=== PATIENT | male | born 1965 | race Caucasian/White ===

== ENCOUNTER 2020-05-11 13:31 | Outpatient (REF) | payer OTHER, SELFPAY | END 2020-05-11 13:32 | disposition home or self-care (01) | LOC: HO.LAB 13:31 | PROVIDERS: Visit Provider Internal Medicine | DX: Z20.822 Contact with and (suspected) exposure to COVID-19 (principal) | CPT/HCPCS: 36415; C9803; U0003 ==

== ENCOUNTER 2020-11-11 14:54 | Outpatient (REF) | payer MEDICARE, MEDICAID, SELFPAY ==
--- NOTE | ~2020-11-11 | XR_ITS ---
EXAMINATION: XR KNEE, LEFT CLINICAL INFORMATION: Pain left knee COMPARISON: None TECHNIQUE: Four views of the left knee. FINDINGS: There is loss of medial and patellofemoral compartment joint space without loose bodies are bony erosive changes. No abnormal joint effusion seen. The soft tissues are normal. XR/XR knee LT 4V IMPRESSION: No acute process. Mild early degenerative changes left knee. No abnormal joint effusion seen.
== END 2020-11-11 14:55 | disposition home or self-care (01) ==
LOC: HO.HMGCX 14:54
PROVIDERS: PCP Internal Medicine; Visit Provider Internal Medicine
DX: Z13.89 Encounter for screening for other disorder (principal)
CPT/HCPCS: 73564

== ENCOUNTER 2020-11-24 13:06 | Outpatient (REF) | payer MEDICARE, MEDICAID, SELFPAY ==
[2020-11-24 13:56] LABS: MANUAL DIFF FLAG NO
[2020-11-24 14:03] LABS: Basophils Absolute Auto 0.1 X10*3/uL (0.0-0.2); Basophils Percent Auto 0.7 % (0-2); Eosinophils Absolute Auto 0.1 X10*3/uL (0.0-0.4); Eosinophils Percent Auto 1.6 % (0-4); Hematocrit 41.2 % (42-52); Hemoglobin 14.4 g/dl (14.0-18.0); Imm Gran Abs Auto 0.02 X10*3/uL (0.00-0.03); Imm Gran Pct Auto 0.3 % (0.0-0.4); Lymphocytes Absolute Auto 2.3 X10*3/uL (1.2-4.9); Mean Corpuscular Hemoglobin 34.2 pg (27.0-33.0); Mean Corpuscular Volume 97.9 fL (80-98); Mean Platelet Volume 9.8 fL (9.4-12.4); Monocytes Absolute Auto 0.7 X10*3/uL (0.1-1.2); Monocytes Percent Auto 10.3 % (2-11); Neutrophils Absolute Auto 3.7 X10*3/uL (2.0-8.3); Neutrophils Percent Auto 54.1 % (45-73); Platelet Count 173 X10*3/uL (160-400); Red Blood Count 4.21 X10*6/uL (4.60-5.80); Red Cell Distribution Width 11.9 % (11.0-16.0); White Blood Count 6.8 X10*3/uL (4.8-10.8)
[2020-11-24 14:23] LABS: Creatinine Urine 12.15 mg/dL; Microalbumin Urine < 5.0 mg/L
[2020-11-24 14:30] LABS: Alanine Aminotransferase 48 U/L (0-40); Albumin Level 4.3 g/dL (3.5-5.0); Alkaline Phosphatase 135 U/L (39-117); Anion Gap 15 (12-20); Aspartate Amino Transferase 43 U/L (5-37); Bilirubin Total 0.5 mg/dL (0.0-1.0); Calcium 9.5 mg/dL (8.4-10.2); Carbon Dioxide 26 mmol/L (22-29); Chloride 103 mmol/L (96-108); Cholesterol 152 mg/dL; Estimated Glomerular Filt Rate > 60; Glucose Fasting 206 mg/dL (60-99); Potassium 4.3 mmol/L (3.3-5.1); Sodium 140 mmol/L (135-145); Total Protein 7.3 g/dL (6.5-8.0); Triglycerides 60 mg/dL
[2020-11-24 14:44] LABS: Blood Urea Nitrogen 3 mg/dL (9-16); HDL Cholesterol 82 mg/dL; LDL Cholesterol Calculated 58 mg/dl
[2020-11-24 14:47] LABS: TSH reflex Free T4 1.41 uIU/mL (0.32-4.0)
[2020-11-25 20:21] LABS: LDL Cholesterol Direct 48 mg/dL (<100)
== END 2020-11-24 13:07 | disposition home or self-care (01) ==
LOC: HO.HMGCLDS 13:06
PROVIDERS: PCP Internal Medicine; Visit Provider Internal Medicine
DX: Z00.01 Encounter for general adult medical examination with abnormal findings (principal); E11.65 Type 2 diabetes mellitus with hyperglycemia; E66.9 Obesity, unspecified; I10 Essential (primary) hypertension; F31.9 Bipolar disorder, unspecified
CPT/HCPCS: 36415; 80053; 80061; 82043; 83721; 84443; 85025

== ENCOUNTER → 2021-07-26 13:30 | Outpatient (BNVA) | payer MEDICARE, MEDICAID, SELFPAY | PROVIDERS: PCP Internal Medicine; Visit Provider Internal Medicine | DX: Z51.81 Encounter for therapeutic drug level monitoring (principal); F10.20 Alcohol dependence, uncomplicated; F31.9 Bipolar disorder, unspecified; F17.210 Nicotine dependence, cigarettes, uncomplicated | CPT/HCPCS: 80305; 99202 ==

== ENCOUNTER 2021-09-06 11:31 | Outpatient (REF) | payer MEDICARE, MEDICAID, SELFPAY ==
[2021-09-06 13:58] LABS: MANUAL DIFF FLAG NO
[2021-09-06 14:05] LABS: Basophils Absolute Auto 0.1 X10*3/uL (0.0-0.2); Basophils Percent Auto 1.2 % (0-2); Eosinophils Absolute Auto 0.1 X10*3/uL (0.0-0.4); Hematocrit 39.4 % (42.0-52.0); Hemoglobin 13.4 g/dl (14.0-18.0); Imm Gran Abs Auto 0.01 X10*3/uL (0.00-0.03); Imm Gran Pct Auto 0.2 % (0.0-0.4); Lymphocytes Absolute Auto 1.5 X10*3/uL (1.2-4.9); Lymphocytes Percent Auto 36.8 % (20-40); Mean Corpuscular Hemoglobin 33.8 pg (27.0-33.0); Mean Corpuscular Volume 99.2 fL (80.0-98.0); Mean Platelet Volume 10.6 fL (9.4-12.4); Monocytes Absolute Auto 0.6 X10*3/uL (0.1-1.2); Monocytes Percent Auto 14.4 % (2-11); Neutrophils Absolute Auto 1.9 x10*3/uL (2.0-8.3); Neutrophils Percent Auto 45.4 % (45-73); Platelet Count 151 X10*3/uL (160-400); Red Blood Count 3.97 X10*6/uL (4.60-5.80); Red Cell Distribution Width 13.2 % (11.0-16.0); White Blood Count 4.1 X10*3/uL (4.8-10.8)
[2021-09-06 14:20] LABS: Alanine Aminotransferase 50 U/L (0-40); Albumin Level 4.4 g/dL (3.5-5.0); Alkaline Phosphatase 123 U/L (39-117); Anion Gap 13 (12-20); Aspartate Amino Transferase 73 U/L (5-37); Bilirubin Total 0.6 mg/dL (0.0-1.0); Blood Urea Nitrogen 6 mg/dL (9-16); Calcium 9.5 mg/dL (8.4-10.2); Carbon Dioxide 27 mmol/L (22-29); Chloride 102 mmol/L (96-108); Cholesterol 198 mg/dL; Estimated Glomerular Filt Rate > 60; Glucose Fasting 179 mg/dL (60-99); HDL Cholesterol 106 mg/dL; LDL Cholesterol Calculated 77 mg/dl; Potassium 4.5 mmol/L (3.3-5.1); Sodium 137 mmol/L (135-145); Total Protein 8.1 g/dL (6.5-8.0); Triglycerides 75 mg/dL
[2021-09-06 14:41] LABS: Vitamin D 25-OH Total 7.2 ng/mL (>30)
[2021-09-06 14:51] LABS: Folate 12.9 ng/mL (> or = 4.0); Vitamin B12 1034 pg/mL (200-900)
== END 2021-09-06 11:32 | disposition home or self-care (01) ==
LOC: HO.HMGCLDS 11:31
PROVIDERS: PCP Internal Medicine; Visit Provider Internal Medicine
DX: Z00.01 Encounter for general adult medical examination with abnormal findings (principal); F10.20 Alcohol dependence, uncomplicated; I10 Essential (primary) hypertension; E11.65 Type 2 diabetes mellitus with hyperglycemia; F17.210 Nicotine dependence, cigarettes, uncomplicated
CPT/HCPCS: 36415; 80053; 80061; 82043; 82306; 82607; 82746; 85025

== ENCOUNTER → 2021-09-08 14:46 | Outpatient (BNVA) | payer MEDICARE, MEDICAID, SELFPAY | PROVIDERS: PCP Internal Medicine; Visit Provider Internal Medicine | DX: Z51.81 Encounter for therapeutic drug level monitoring (principal) | CPT/HCPCS: 80305 ==

== ENCOUNTER 2022-02-03 12:06 | Outpatient (REF) | payer MEDICARE, MEDICAID, SELFPAY ==
[2022-02-03 13:25] LABS: Estimated Average Glucose 174 mg/dL; Hemoglobin A1c % 7.7 %
[2022-02-03 13:47] LABS: Alanine Aminotransferase 67 U/L (0-40); Albumin Level 4.4 g/dL (3.5-5.0); Alkaline Phosphatase 118 U/L (39-117); Anion Gap 18 (12-20); Aspartate Amino Transferase 94 U/L (5-37); Bilirubin Total 1.9 mg/dL (0.0-1.0); Blood Urea Nitrogen 6 mg/dL (9-16); Calcium 9.4 mg/dL (8.4-10.2); Carbon Dioxide 24 mmol/L (22-29); Chloride 90 mmol/L (96-108); Estimated Glomerular Filt Rate > 60; Glucose Fasting 182 mg/dL (60-99); Potassium 4.1 mmol/L (3.3-5.1); Sodium 128 mmol/L (135-145); Total Protein 7.8 g/dL (6.5-8.0)
[2022-02-03 13:59] LABS: Vitamin D 25-OH Total 7.2 ng/mL (>30)
== END 2022-02-03 12:07 | disposition home or self-care (01) ==
LOC: HO.LAB 12:06
PROVIDERS: PCP Internal Medicine; Visit Provider Internal Medicine
DX: I10 Essential (primary) hypertension (principal); E11.65 Type 2 diabetes mellitus with hyperglycemia; E55.9 Vitamin D deficiency, unspecified; F10.20 Alcohol dependence, uncomplicated
CPT/HCPCS: 36415; 80053; 82306; 83036

== ENCOUNTER 2022-08-09 11:57 | Outpatient (REF) | payer MEDICARE, MEDICAID, SELFPAY ==
[2022-08-09 13:15] LABS: Imm Gran Abs Auto 0.01 X10*3/uL (0.00-0.03); Imm Gran Pct Auto 0.2 % (0.0-0.4); Mean Corpuscular Volume 94.8 fL (80.0-98.0); PLT CLUMP 1; Red Cell Distribution Width 11.8 % (11.0-16.0); SCAN SMEAR FLAG 1
[2022-08-09 13:17] LABS: Basophils Percent Auto 0.6 % (0-2); Eosinophils Absolute Auto 0.1 X10*3/uL (0.0-0.4); Eosinophils Percent Auto 2.5 % (0-4); Hematocrit 36.5 % (42.0-52.0); Hemoglobin 13.2 g/dl (14.0-18.0); Lymphocytes Absolute Auto 2.1 X10*3/uL (1.2-4.9); Lymphocytes Percent Auto 39.4 % (20-40); Mean Corpuscular HGB Conc 36.2 g/dl (31.0-36.0); Mean Corpuscular Hemoglobin 34.3 pg (27.0-33.0); Mean Platelet Volume 10.1 fL (9.4-12.4); Monocytes Absolute Auto 0.7 X10*3/uL (0.1-1.2); Monocytes Percent Auto 13.6 % (2-11); Neutrophils Absolute Auto 2.3 x10*3/uL (2.0-8.3); Neutrophils Percent Auto 43.7 % (45-73); Red Blood Count 3.85 X10*6/uL (4.60-5.80)
[2022-08-09 13:20] LABS: MANUAL DIFF FLAG NO; Platelet Count 126 X10*3/uL (160-400); White Blood Count 5.2 X10*3/uL (4.8-10.8)
[2022-08-09 13:35] LABS: Estimated Average Glucose 143 mg/dL; Hemoglobin A1c % 6.6 %
[2022-08-09 13:56] LABS: Alanine Aminotransferase 64 U/L (0-40); Albumin Level 4.3 g/dL (3.5-5.0); Alkaline Phosphatase 137 U/L (39-117); Anion Gap 15 (12-20); Aspartate Amino Transferase 132 U/L (5-37); Bilirubin Total 1.2 mg/dL (0.0-1.0); Blood Urea Nitrogen 4 mg/dL (9-16); Calcium 9.2 mg/dL (8.4-10.2); Carbon Dioxide 26 mmol/L (22-29); Chloride 101 mmol/L (96-108); Cholesterol 165 mg/dL; Estimated Glomerular Filt Rate > 60; Glucose Fasting 166 mg/dL (60-99); HDL Cholesterol 76 mg/dL; LDL Cholesterol Calculated 77 mg/dl; Potassium 3.9 mmol/L (3.3-5.1); Sodium 138 mmol/L (135-145); Total Protein 7.6 g/dL (6.5-8.0); Triglycerides 64 mg/dL
[2022-08-09 13:59] LABS: Creatinine Urine 109.35 mg/dL; Microalbum/Creatinine Ratio Ur 16.4 ug/mg cr
[2022-08-09 14:12] LABS: Folate 12.3 ng/mL (> or = 4.0); PSA,Total (Free>4and<10) 1.16 ng/mL (0.00-4.00); TSH reflex Free T4 4.79 uIU/mL (0.32-4.0); Vitamin B12 1335 pg/mL (200-900); Vitamin D 25-OH Total 10.5 ng/mL (>30)
[2022-08-16 11:14] LABS: Testosterone, Free 60.2 pg/mL (35.0-155.0); Testosterone, Total 803 ng/dL (250-1100)
== END 2022-08-09 11:58 | disposition home or self-care (01) ==
LOC: HO.LAB 11:57
PROVIDERS: PCP Internal Medicine; Visit Provider Internal Medicine
DX: Z12.5 Encounter for screening for malignant neoplasm of prostate (principal); E11.65 Type 2 diabetes mellitus with hyperglycemia; E55.9 Vitamin D deficiency, unspecified; I10 Essential (primary) hypertension
CPT/HCPCS: 36415; 80053; 80061; 82043; 82306; 82607; 82746; 83036; 84153; 84402; 84403; 84439; 84443; 85025

== ENCOUNTER 2022-12-27 12:58 | Outpatient (AMB) | payer MEDICARE, MEDICAID, SELFPAY ==
--- NOTE | 2022-12-27 13:11 | A.OFFPC_ITS ---
Vital Signs 12/27/22 13:14 Height 5 ft 5 in Weight 165 lb BMI 27.5 BP 100/60 Blood Pressure Location Lt brachial Position Sitting Pulse 87 Pulse Source Pulse Oximeter Pulse Oximetry (%) 100 Oxygen Delivery Method Room Air Intake Visit Reasons: 4 months follow up DM, Lipids, HTN, Alcohol Intake Note: Pt is here today for his 4 months f/u DM, lipids, HTN and alcohol Allergies No Known Allergies Allergy (Verified 01/05/23 03:11) Medication List - Last Reconciled 01/05/23 by Hanna Patten MD acamprosate 333 mg PO BID acetaminophen ER (Tylenol Arthritis Pain) 650 mg PO Q8H PRN alcohol swabs (Alcohol Prep Pads) pad topical aspirin 81 mg PO DAILY blood sugar diagnostic (FreeStyle Lite Strips) Test blood sugar once a day blood-glucose meter (FreeStyle Lite Meter kit) As directed escitalopram oxalate 20 mg PO DAILY folic acid 1 mg PO DAILY glipizide 10 mg PO DAILY lancets (FreeStyle Lancets) Test blood sugar once a day leg brace (Knee Brace Large-XLarge) use daily in left knee as directed lisinopril 5 mg PO DAILY metformin 1,000 mg (2 x 500 mg) PO BID multivitamin 1 tab PO DAILY pioglitazone 45 mg PO DAILY quetiapine 100 mg PO DAILY 30 days simvastatin 10 mg PO BEDTIME thiamine HCl (vitamin B1) 50 mg (1/2 x 100 mg) PO DAILY Tobacco use date assessed: 12/27/22 Dental Screening Dental Screen Date: 12/27/22 Did you have a dental visit in the last 12 months?: Yes Was dental information given to patient?: Patient has dentist HPI 4 months follow up DM, Lipids, HTN, Alcohol HPI Details 58-year-old male here today for his follow-up. He has history of alcohol use disorder, currently being seen at [facility] and prescribed Acamprosate, sober now for the last several months. He is also being seen there for his bipolar disorder and is currently on escitalopram and quetiapine, which has stabilized his mood per his [employer] He has diabetes mellitus currently not on an insulin, latest hemoglobin A1c at 7.9%. Ever since he stopped his alcohol intake, his appetite picked up and has gained approximately 20 lb since last visit in July 2022. He has dyslipidemia currently on simvastatin 10 mg at bedtime. Blood pressure is stable controlled on lisinopril 5 mg daily. He is due for several of his vaccinations, but does not want to get COVID vaccin, but decreased to getting Tdap vaccination. He can not is smoke cigarettes, has no desire to quit at present time. [facility] Medical History (Updated 01/05/23 @ 03:39 by Hanna Patten MD) Alcohol use disorder Bipolar 1 disorder Cigarette smoker motivated to quit Colonoscopy refused COVID-19 vaccination declined Diabetes mellitus with hyperglycemia, without long-term current use of insulin Essential hypertension History of alcoholism Knee pain, bilateral Knee pain, chronic Polyarthralgia Smokes 1.5-2 packs of cigarettes per day Vitamin D deficiency Family History Brother Mental health disorder Substance abuse Father Mental health disorder Mother Mental health disorder Social History Housing: Apartment Patient Tobacco Use Status: Current everyday Tobacco user Tobacco use type: Cigarette Cigarette Packs Per Day: 1 Cigarettes Per Day: 20 Years Smoked: 35 e-Cigarette/Vaping Use: Never Used Second Hand Smoke Exposure: Yes Current occupational status: disabled Cognitive needs: No Hearing needs: No Vision needs: Yes Questionnaire PHQ-9 Over the last 2 weeks, how often have you been bothered by any of the following problems? 1. Little interest or pleasure in doing things: not at all 2. Feeling down, depressed, or hopeless: several days 3. Trouble falling or staying asleep, or sleeping too much: several days 4. Feeling tired or having little energy: several days 5. Poor appetite or overeating: several days 6. Feeling bad about yourself - or that you are a failure or have let yourself or your family down: not at all 7. Trouble concentrating on things, such as reading the newspaper or watching television: not at all 8. Moving or speaking so slowly that other people could have noticed. Or the opposite - being so fidgety or restless that you have been moving around a lot more than usual: not at all 9. Thoughts that you would be better off or of hurting yourself in some way: not at all Total score: 4 Depression Screening Interpretation: Positive (Currently being followed by psychiatrist at [facility]) Depression Screening Follow-up: Existing condition, In treatment and Community Mental Health Worker F/U 26508 - PHQ-9 Billing: Yes Source: Developed by Drs. Manjit Barbour, Elizabeth Samaniego, Artem Rivera and colleagues, with an educational jessica from [employer]. Thrive Questionnaire Date Thrive assessed: 12/27/22 I am a: Patient What is your living situation today?: I have a place to live, but I am worried about losing it in the future Within the past 12 months, did the food you bought not last and you didn't have the money to get more?: Often true Within the past 12 months, did you worry whether your food would run out before you got money to buy more?: Never true Do you have trouble paying for medicines?: No Do you have trouble getting transportation to medical appointments?: No Do you have trouble paying your heating and electricity bill?: No Do you have trouble taking care of your child, family member or friend?: Yes Do you have trouble with day-to-day activities such as bathing, preparing meals, shopping, managing finances, etc.?: Yes Are you currently unemployed and looking for a job?: No Are you interested in more education?: No AUDIT C Alcohol Use Questionnaire (AUDIT-C) 1. How often do you have a drink containing alcohol?: Never (Quit with help of Vivitrol approximately 3 months ago) Total Score: 0 Score Reviewed/Action Taken: Yes MONSERRAT-7 AMB Questionnaire MONSERRAT-7 Feeling nervous, anxious, or on edge: 2 = More than half the days Worrying too much about different things: 1 = Several days Trouble relaxin = Several days Being so restless that it is hard to sit still: 0 = Not at all Becoming easily annoyed or irritable: 0 = Not at all Feeling afraid as if something awful might happen: 1 = Several days Source: Developed by Drs. Manjit Barbour, Elizabeth Samaniego, Artem Rivera and colleagues, with an educational jessica from [employer]. MONSERRAT-7 Assessment Billing MONSERRAT-7 Assessment Tool: MONSERRAT-7 Assessment 73611 Review of Systems Const Denies difficulty sleeping, Denies fatigue, Denies fever(s), Denies frequent falls, Denies headache(s), Reports increased appetite and Reports weight gain Eyes Reports requires corrective lenses ENT Denies dysphagia, Denies vertigo, Denies dizziness, Denies headache(s) and Denies nasal congestion Card Denies chest pain, Denies irregular heart rhythm and Denies dyspnea Resp Denies cough, Denies dyspnea and Denies wheezing GI Denies change in bowel habits, Denies dysphagia and Denies heartburn Reports no additional complaints Skin/Breast Reports system reviewed and no additional complaints, except as documented Neuro Denies Neuro-related abnormal movements, Denies Abnormal speech present, Denies vertigo, Denies dizziness, Denies frequent falls, Denies headache(s), Denies focal weakness, Denies seizure-like activity and Denies paresthesias Psych Reports as per HPI (Currently followed at [facility], sees psychiatrist) Endo Denies fatigue, Denies polyphagia, Denies polydipsia and Denies polyuria Melvin/Lymph Reports no additional complaints Aller/Immun Denies wheezing Physical exam (Primary Care) Vital Signs: Last Vital Signs Pulse 87 12/27/22 13:14 BP 100/60 12/27/22 13:14 Pulse Ox 100 12/27/22 13:14 Oxygen Delivery Method Room Air 12/27/22 13:14 BMI result Body Mass Index 27.5 Tobacco/Smoking Status: Tobacco use Status Tobacco use date assessed 12/27/22 12/27/22 13:18 Patient Tobacco Use Status Current everyday Tobacco 12/27/22 13:13 Tobacco use type Cigarette 12/27/22 13:13 e-Cigarette/Vaping Use Never Used 12/27/22 13:13 Are you ready to quit: No PHQ-9: PHQ-9 Score PHQ-9: Total score 4 12/27/22 14:08 Depression Screening Interpretation: Positive (Currently being followed by psychiatrist at [facility]) Depression Screening Follow-up: Existing condition, In treatment and Community Mental Health Worker F/U Thrive Assessment: Date of Thrive Assessment Date Thrive assessed 12/27/22 12/27/22 14:08 Const Other: Accompanied by [employer] General: cooperative, comfortable and no acute distress Nutritional Appearance: average body habitus Orientation/consciousness: patient oriented x3 Eyes General: appearance normal, both eyes and all related structures Neck Neck: Yes full ROM, Yes no lymphadenopathy and Yes supple Resp Effort & Inspection: normal respiratory effort and able to speak in complete sentences Auscultation: clear to auscultation bilaterally Cardio Other: S1-S2 present regular rate and rhythm GI Palpation (GI): Soft to palpation, nontender, no guarding and no masses Back/Spine/Pelvis Back: No back tenderness Skin General skin exam: dry skin Neuro General: patient oriented x3, gait normal, tone normal, moves all extremities, no focal motor deficits and CN's II-XI intact bilaterally Speech: No Abnormal speech present Extrem General: Yes full ROM, Yes no joint enlargement, Yes no pedal edema, Yes no calf tenderness and Yes normal gait Psych Other: Positive crepitus in knees Appearance: grossly normal and well kempt Mental Status: mental status grossly normal Speech and movement: Normal speech and movement present Affect: normal affect Attitude: cooperative Results AMB Hemoglobin A1c 2 AMB Hemoglobin A1c 7.9 % Last Edit by Rosana Aldana CMA on 12/27/22 13:36 Immunizations Boostrix Tdap Performing Provider: Hanna Patten MD Administered by: Rosana Aldana CMA on 12/27/22 14:11 Dose Route Admin Location Lot Number Expiration Date NDC [employer] [place] 0.5 mL IM Right Deltoid [id number] 02/08/25 [id number] [email or web address] VIS Given Date VIS Provided VIS Publication Date 12/27/22 Single Vaccine 20 Eligibility Eligibility Date Funding Source Not [facility] Eligible 12/27/22 Private Results Reviewed Results Reviewed: Laboratory Last Values Hgb A1c (Clinic) 7.9 % (4.0-6.0) H 12/27/22 13:22 Assessment and Plan Assessment & Plan (1) Diabetes mellitus with hyperglycemia, without long-term current use of insulin: Code(s): E11.65 - Type 2 diabetes mellitus with hyperglycemia Qualifiers: Diabetes mellitus type: type 2 Qualified Code(s): E11.65 - Type 2 diabetes mellitus with hyperglycemia Plan: Recent lab results reviewed with patient, with sugar and hemoglobin A1c higher than last check with A1c now at 7.9%. Continue metformin 1000 mg twice a day, glipizide 10 mg once a day in a.m., and pioglitazone 45 mg once a day. Continue to check fasting blood sugar at home, maintain log and bring to next appointment for review. Reinforced diabetic diet and regular exercise with patient. Counseled regarding importance of yearly diabetes retinopathy screening. Patient advised to inspect feet daily, for any signs of injury, callus or infection. Compliance with diet and regular exercise again stressed. Blood pressure goal is less than 130/80, goal LDL is less than 100 and goal hemoglobin A1c is less than 7% follow-up appointment made in-3--months, after fasting labs done. (2) Vitamin D deficiency: Code(s): E55.9 - Vitamin D deficiency, unspecified Plan: Will check vitamin-D level (3) Essential hypertension: Code(s): I10 - Essential (primary) hypertension Plan: Blood pressure at goal of less than 130/80. Continue with lisinopril 5 mg daily. Reinforced importance of following a low sodium diet, getting regular exercise, and lowering stress levels. (4) Polyarthralgia: Code(s): M25.50 - Pain in unspecified joint Plan: Takes acetaminophen 650 mg every 8 hours as needed for joint pain. (5) COVID-19 vaccination declined: Code(s): Z28.21 - Immunization not carried out because of patient refusal (6) Bipolar 1 disorder: Comment: Sees med prescriber at [facility] Code(s): F31.9 - Bipolar disorder, unspecified Plan: Currently followed by psychiatry at [facility], on escitalopram 20 mg daily, and quetiapine 100 mg daily (7) Need for Tdap vaccination: Code(s): Z23 - Encounter for immunization Plan: Tdap booster given today (8) History of alcoholism: Code(s): F10.21 - Alcohol dependence, in remission Plan: Has been sober now for the last several months , currently being seen at [facility]/Psychiatry and started on acamprosate with good results Orders: Orders Vitamin B12 and Folate 12/30/22 E55.9 - Vitamin D deficiency, unspecified, I10 - Essential (primary) hypertension, E11.65 - Type 2 diabetes mellitus with hyperglycemia Comprehensive Bernard. Panel Fast 12/30/22 E55.9 - Vitamin D deficiency, unspecified, I10 - Essential (primary) hypertension, E11.65 - Type 2 diabetes mellitus with hyperglycemia Lipid Panel 12/30/22 E55.9 - Vitamin D deficiency, unspecified, I10 - Essential (primary) hypertension, E11.65 - Type 2 diabetes mellitus with hyperglycemia Vitamin B1 12/30/22 E55.9 - Vitamin D deficiency, unspecified, I10 - Essential (primary) hypertension, E11.65 - Type 2 diabetes mellitus with hyperglycemia Vitamin D 25-OH Total 12/30/22 E55.9 - Vitamin D deficiency, unspecified, I10 - Essential (primary) hypertension, E11.65 - Type 2 diabetes mellitus with hyperglycemia TDaP Immunization 12/27/22 Z23 - Encounter for immunization AMB Hemoglobin A1c 12/27/22 E11.65 - Type 2 diabetes mellitus with hyperglycemia Coding Level of Care Code Est Pt Level 4 (45350) Diagnoses Diabetes mellitus with hyperglycemia, without long-term current use of insulin E11.65 Diabetes mellitus type: type 2 Vitamin D deficiency E55.9 Essential hypertension I10 Polyarthralgia M25.50 COVID-19 vaccination declined Z28.21 Bipolar 1 disorder F31.9 Need for Tdap vaccination Z23 History of alcoholism F10.21 Additional Codes MONSERRAT-7 Assessment Billing - MONSERRAT-7 Assessment Tool: MONSERRAT-7 Assessment 53014 ([id number])
[2022-12-27 13:14] VITALS: BP 100/60; PULSE 87; O2SAT 100; BMI 27.5
== END 2022-12-27 14:11 | disposition home or self-care (01) ==
PROVIDERS: PCP Internal Medicine; Visit Provider Internal Medicine
DX: Z23 Encounter for immunization (principal); E11.65 Type 2 diabetes mellitus with hyperglycemia
CPT/HCPCS: 83036; 90471; 90715; 99214

== ENCOUNTER 2022-12-30 12:55 | Outpatient (REF) | payer MEDICARE, MEDICAID, SELFPAY ==
[2022-12-30 14:45] LABS: Alanine Aminotransferase 25 U/L (0-40); Albumin Level 4.3 g/dL (3.5-5.0); Alkaline Phosphatase 109 U/L (39-117); Anion Gap 14 (12-20); Aspartate Amino Transferase 29 U/L (5-37); Bilirubin Total 0.6 mg/dL (0.0-1.0); Blood Urea Nitrogen 6 mg/dL (9-16); Calcium 9.8 mg/dL (8.4-10.2); Carbon Dioxide 24 mmol/L (22-29); Chloride 106 mmol/L (96-108); Cholesterol 105 mg/dL (<200); Estimated Glomerular Filt Rate > 60; Glucose Fasting 116 mg/dL (60-99); HDL Cholesterol 49 mg/dL (>40); LDL Cholesterol Calculated 49 mg/dL (<100); Potassium 4.2 mmol/L (3.3-5.1); Sodium 140 mmol/L (135-145); Total Protein 7.5 g/dL (6.5-8.0); Triglycerides 35 mg/dL (<150)
[2022-12-30 15:08] LABS: Vitamin D 25-OH Total 25.2 ng/mL (>30)
[2022-12-30 15:14] LABS: Folate > 20.0 ng/mL (> or = 4.0); Vitamin B12 939 pg/mL (200-900)
[2023-01-04 15:18] LABS: Vitamin B1 49 nmol/L (8-30)
== END 2022-12-30 12:56 | disposition home or self-care (01) ==
LOC: HO.LAB 12:55
PROVIDERS: PCP Internal Medicine; Visit Provider Internal Medicine
DX: E55.9 Vitamin D deficiency, unspecified (principal); I10 Essential (primary) hypertension; E11.65 Type 2 diabetes mellitus with hyperglycemia
CPT/HCPCS: 36415; 80053; 80061; 82306; 82607; 82746; 84425

== ENCOUNTER 2023-04-04 10:17 | Outpatient (AMB) | payer MEDICARE, MEDICAID, SELFPAY ==
--- NOTE | 2023-04-04 10:34 | MHC.OFFVIS ---
Intake Vital Signs 04/04/23 10:36 Height 5 ft 5 in Weight 163 lb 9.328 oz BMI 27.2 BP 131/97 H Blood Pressure Location Lt brachial Position Sitting Pulse 93 Intake Visit Reasons: epigastric pain Intake Note: Patient presents to in office visit today as a new patient for epigastric pain. CC: Patient c/o epigastric pain and heartburn since he was younger. He reports that he use to drink a lot of alcohol in the past and was been monitored for his liver. He also states sometimes getting diarrhea and nausea. Patient states he has never had a colonoscopy done and has family history of cancer. Assistant Director Of Security Required: No Accompanied by: LINNETTE Allergies No Known Allergies Allergy (Verified 04/04/23 10:39) HPI epigastric pain HPI Details 58-year-old male here for initial evaluation of epigastric pain and for screening colonoscopy. He is referred by Vivienne Patten. PMX History of alcoholism Diabetes Smoker Hypertension Polyarthralgias Bipolar 1 disorder Chronic knee pain * SURGICAL HISTORY PT denies ALLERGIES: NKDA * [employer] LABS: Laboratory Tests 08/09/22 08/09/22 12/27/22 12:17 12:17 13:22 WBC 5.2 Hgb 13.2 L Hct 36.5 L MCV 94.8 MCH 34.3 H MCHC 36.2 H Plt Count 126 L Estimated GFR Hgb A1c (Clinic) 7.9 H Total Bilirubin AST ALT Alkaline Phosphata se TSH 4.79 H Free T4 0.90 12/30/22 12/30/22 13:19 13:19 WBC Hgb Hct MCV MCH MCHC Plt Count Estimated GFR > 60 Hgb A1c (Clinic) Total Bilirubin 0.6 AST 29 ALT 25 Alkaline Phosphata se 109 TSH Free T4 TODAY'S VISIT [place] # TOOL SETTER APPRENTICE translates per pt request He has had stomach problems since childhood. He used to drink a lot of ETOH since childhood and just stopped about a month ago. His stomach actually feels better since he stopped. He has intermittent epigastric pain and frequent nausea. But his appetite is actually better since he stopped drinking and he is eating more. He is having diarrhea that is watery about 1-2 times a day and this has been over brandi past month - he thinks this is r/t ETOH cessation. He has no pain and this sx does not bother him. We will take no action on the diarrhea for now. I believe what would be needed at this point would be a colonoscopy and an upper endoscopy both the explore his intermittent epigastric pain and to evaluate for esophageal varices along with colon cancer screening. He has a very strong family history of colon cancer. This is his 1st colonoscopy. He is completely naive to anesthesia and sedation. He does smoke but denies any cardiac or respiratory problems. There are no infectious disease problems. He has a brother that of colon cancer and for nephews on the paternal side that also of colon cancer. At this point I will see him after the procedures. [facility] Medical History (Updated 04/04/23 @ 11:22 by ROSSY Maloney) History of alcoholism Polyarthralgia Vitamin D deficiency Colonoscopy refused Knee pain, bilateral COVID-19 vaccination declined Smokes 1.5-2 packs of cigarettes per day Cigarette smoker motivated to quit Knee pain, chronic Essential hypertension Alcohol use disorder Bipolar 1 disorder Diabetes mellitus with hyperglycemia, without long-term current use of insulin Family History Brother Mental health disorder Substance abuse Father Mental health disorder Mother Mental health disorder Social History Housing: Apartment Patient Tobacco Use Status: Current everyday Tobacco user Tobacco use type: Cigarette Cigarette Packs Per Day: 1 Cigarettes Per Day: 20 Years Smoked: 35 e-Cigarette/Vaping Use: Never Used Second Hand Smoke Exposure: Yes Current occupational status: disabled Cognitive needs: No Hearing needs: No Vision needs: Yes Review of Systems Const Denies fatigue, Denies fever(s), Denies night sweats, Denies poor appetite, Reports weight gain and Denies weight loss ENT Reports Normal hearing present, Denies dysphagia, Denies odynophagia, Denies throat swelling and Denies tongue swelling Card Reports no additional complaints Resp Reports no additional complaints GI Reports abdominal pain, Denies melena, Denies bloating, Denies hematochezia, Denies constipation, Denies GI cramping, Denies dysphagia, Denies excessive flatus, Denies early satiety, Reports heartburn, Reports diarrhea, Denies nausea, Denies odynophagia, Denies vomiting and Denies hematemesis Musc Reports abnormal gait Skin/Breast Denies pruritus, Denies lesions, Denies rash and Denies jaundice Neuro Reports Normal hearing present, Denies Abnormal speech present and Reports abnormal gait Endo Denies fatigue Aller/Immun Denies throat swelling and Denies tongue swelling Physical Exam Vital Signs: BMI result Body Mass Index 27.2 Const General: cooperative, no acute distress, well developed and well groomed Nutritional Appearance: well nourished and obese centrally obese Orientation/consciousness: oriented to person, oriented to place and oriented to time Limitations: language barrier and ambulation with cane HEENT Head: Yes normocephalic and Yes atraumatic Eyes General: appearance normal, both eyes and all related structures Pupils: Equal, round and reactive pupils present Neck Neck: Yes normal visual inspection and Yes no lymphadenopathy Thyroid: Thyroid normal Resp Effort & Inspection: normal respiratory effort and able to speak in complete sentences Auscultation: clear to auscultation bilaterally Cardio Rate: regular rate Rhythm: regular rhythm Heart sounds: Normal, physiologic split S2 sound present Peripheral pulses: radial pulses present and posterior tibial pulses present GI Inspection: No distended, No Abdominal panniculus present and Yes obesity Palpation (GI): Soft to palpation, nontender, no guarding, not rigid and No hepatosplenomegaly present Percussion: Yes normal to percussion Auscultation: normal bowel sounds Rectal Exam - Male: Yes deferred Skin General skin exam: no rashes or lesions noted, turgor normal, skin not dry, no jaundice, No spider nevi and no striae Rashes: no rashes Nails: normal Neuro General: oriented to person, oriented to place and oriented to time Cranial nerves: Yes Equal, round and reactive pupils present and Yes Normal hearing present Speech: No Abnormal speech present Extrem General: Yes normal to inspection, No clubbing, No cyanosis and No edema Psych Appearance: grossly normal and well kempt Mental Status: mental status grossly normal Speech and movement: Normal speech and movement present Affect: normal affect Attitude: cooperative Thought process: Normal thought process present and not confabulating Thought content: Normal thought content present Insight: Limited insight present (Psych) Judgement: Limited judgement present (Psych) Results Reviewed Results Reviewed: Laboratory Tests 08/09/22 08/09/22 12/27/22 12:17 12:17 13:22 WBC 5.2 Hgb 13.2 L Hct 36.5 L MCV 94.8 MCH 34.3 H MCHC 36.2 H Plt Count 126 L Estimated GFR Hgb A1c (Clinic) 7.9 H Total Bilirubin AST ALT Alkaline Phosphatase TSH 4.79 H Free T4 0.90 12/30/22 12/30/22 13:19 13:19 WBC Hgb Hct MCV MCH MCHC Plt Count Estimated GFR > 60 Hgb A1c (Clinic) Total Bilirubin 0.6 AST 29 ALT 25 Alkaline Phosphatase 109 TSH Free T4 Assessment & Plan Assessment & Plan (1) Epigastric pain: Code(s): R10.13 - Epigastric pain Plan: [place] # TOOL SETTER APPRENTICE translates per pt request He has had stomach problems since childhood. He used to drink a lot of ETOH since childhood and just stopped about a month ago. His stomach actually feels better since he stopped. He has intermittent epigastric pain and frequent nausea. But his appetite is actually better since he stopped drinking and he is eating more. He is having diarrhea that is watery about 1-2 times a day and this has been over brandi past month - he thinks this is r/t ETOH cessation. He has no pain and this sx does not bother him. We will take no action on the diarrhea for now. I believe what would be needed at this point would be a colonoscopy and an upper endoscopy both the explore his intermittent epigastric pain and to evaluate for esophageal varices along with colon cancer screening. He has a very strong family history of colon cancer. This is his 1st colonoscopy. He is completely naive to anesthesia and sedation. He does smoke but denies any cardiac or respiratory problems. There are no infectious disease problems. He has a brother that of colon cancer and for nephews on the paternal side that also of colon cancer. At this point I will see him after the procedures (2) Alcohol use disorder: Comment: Started on Acamprosate by [facility] (3) Family history of colon cancer: Comment: brother CRC and 4 nephews on paternal side Code(s): Z80.0 - Family history of malignant neoplasm of digestive organs (4) Pre-op examination: Code(s): Z01.818 - Encounter for other preprocedural examination (5) Smokes 1.5-2 packs of cigarettes per day: Code(s): F17.210 - Nicotine dependence, cigarettes, uncomplicated Plan [place] # TOOL SETTER APPRENTICE translates per pt request He has had stomach problems since childhood. He used to drink a lot of ETOH since childhood and just stopped about a month ago. His stomach actually feels better since he stopped. He has intermittent epigastric pain and frequent nausea. But his appetite is actually better since he stopped drinking and he is eating more. He is having diarrhea that is watery about 1-2 times a day and this has been over brandi past month - he thinks this is r/t ETOH cessation. He has no pain and this sx does not bother him. We will take no action on the diarrhea for now. I believe what would be needed at this point would be a colonoscopy and an upper endoscopy both the explore his intermittent epigastric pain and to evaluate for esophageal varices along with colon cancer screening. He has a very strong family history of colon cancer. This is his 1st colonoscopy. He is completely naive to anesthesia and sedation. He does smoke but denies any cardiac or respiratory problems. There are no infectious disease problems. He has a brother that of colon cancer and for nephews on the paternal side that also of colon cancer. At this point I will see him after the procedures Orders: Orders EGD/[place] Combo - GI Use Only Today R10.13 - Epigastric pain, Z01.818 - Encounter for other preprocedural examination, Z80.0 - Family history of malignant neoplasm of digestive organs Medications: New peg 3350-electrolytes [id number] -5.86 gram (Golytely) until fecal effluent is clear; do not exceed a total volume of 2,000 mL 240 mL PO Q10M 1 day 4,000 mL 0RF Z12.11 - Encounter for screening for malignant neoplasm of colon Coding Level of Care Code New Pt Level 3 (07541) Diagnoses Epigastric pain R10.13 Alcohol use disorder F10.90 Family history of colon cancer Z80.0 Pre-op examination Z01.818 Smokes 1.5-2 packs of cigarettes per day F17.210
[2023-04-04 10:36] VITALS: BP 131/97; PULSE 93; BMI 27.2
== END 2023-04-04 11:31 | disposition home or self-care (01) ==
PROVIDERS: PCP Internal Medicine; Visit Provider Nurse Practitioner
DX: R10.13 Epigastric pain (principal); F10.90 Alcohol use, unspecified, uncomplicated; Z80.0 Family history of malignant neoplasm of digestive organs; Z01.818 Encounter for other preprocedural examination; F17.210 Nicotine dependence, cigarettes, uncomplicated
CPT/HCPCS: 99203

== ENCOUNTER → 2023-04-04 10:17 | Outpatient (BNVA) | payer MEDICARE, MEDICAID, SELFPAY | PROVIDERS: PCP Internal Medicine; Visit Provider Nurse Practitioner | DX: Z01.818 Encounter for other preprocedural examination (principal); R10.13 Epigastric pain; F10.20 Alcohol dependence, uncomplicated; F17.210 Nicotine dependence, cigarettes, uncomplicated; Z80.0 Family history of malignant neoplasm of digestive organs | CPT/HCPCS: 99202 ==

== ENCOUNTER 2023-04-11 09:15 | Outpatient (REF) | payer MEDICARE, MEDICAID, SELFPAY ==
[2023-04-11 09:36] LABS: MANUAL DIFF FLAG NO
[2023-04-11 09:41] LABS: Basophils Percent Auto 0.4 % (0-2); Eosinophils Absolute Auto 0.2 X10*3/uL (0.0-0.4); Eosinophils Percent Auto 2.9 % (0-4); Hematocrit 38.8 % (42.0-52.0); Hemoglobin 12.9 g/dl (14.0-18.0); Imm Gran Abs Auto 0.03 X10*3/uL (0.00-0.03); Imm Gran Pct Auto 0.4 % (0.0-0.4); Lymphocytes Absolute Auto 2.1 X10*3/uL (1.2-4.9); Lymphocytes Percent Auto 30.5 % (20-40); Mean Corpuscular HGB Conc 33.2 g/dl (31.0-36.0); Mean Corpuscular Hemoglobin 32.6 pg (27.0-33.0); Mean Platelet Volume 9.5 fL (9.4-12.4); Monocytes Absolute Auto 0.6 X10*3/uL (0.1-1.2); Monocytes Percent Auto 9.4 % (2-11); Neutrophils Absolute Auto 3.8 x10*3/uL (2.0-8.3); Neutrophils Percent Auto 56.4 % (45-73); Platelet Count 155 X10*3/uL (160-400); Red Blood Count 3.96 X10*6/uL (4.60-5.80); Red Cell Distribution Width 12.3 % (11.0-16.0); White Blood Count 6.8 X10*3/uL (4.8-10.8)
[2023-04-11 09:51] LABS: Estimated Average Glucose 137 mg/dL; Hemoglobin A1c % 6.4 % (<6.0)
[2023-04-11 10:11] LABS: Alanine Aminotransferase 21 U/L (0-40); Albumin Level 4.1 g/dL (3.5-5.0); Alkaline Phosphatase 103 U/L (39-117); Anion Gap 14 (12-20); Aspartate Amino Transferase 26 U/L (5-37); Bilirubin Total 0.6 mg/dL (0.0-1.0); Blood Urea Nitrogen 7 mg/dL (9-16); Calcium 9.6 mg/dL (8.4-10.2); Carbon Dioxide 24 mmol/L (22-29); Chloride 105 mmol/L (96-108); Cholesterol 122 mg/dL (<200); Estimated Glomerular Filt Rate > 60; Glucose Fasting 132 mg/dL (60-99); HDL Cholesterol 39 mg/dL (>40); Iron 127 mcg/dL (45-160); LDL Cholesterol Calculated 70 mg/dL (<100); Percent Iron Saturation 47 % (15-50); Sodium 139 mmol/L (135-145); Total Iron Binding Capacity 270 mcg/dL (228-428); Total Protein 7.2 g/dL (6.5-8.0); Triglycerides 68 mg/dL (<150); Unsaturated Iron Binding 143 ug/dL
[2023-04-11 10:29] LABS: Vitamin D 25-OH Total 44.1 ng/mL (>30)
[2023-04-11 10:36] LABS: Folate 9.7 ng/mL (> or = 4.0); Vitamin B12 901 pg/mL (200-900)
== END 2023-04-11 09:16 | disposition home or self-care (01) ==
LOC: HO.LAB 09:15
PROVIDERS: PCP Internal Medicine; Visit Provider Internal Medicine
DX: I10 Essential (primary) hypertension (principal); E11.65 Type 2 diabetes mellitus with hyperglycemia; F10.21 Alcohol dependence, in remission
CPT/HCPCS: 36415; 80053; 80061; 82306; 82607; 82746; 83036; 83540; 85025

== ENCOUNTER 2023-04-12 12:56 | Outpatient (AMB) | payer MEDICARE, MEDICAID, SELFPAY ==
--- NOTE | 2023-04-12 13:03 | A.OFFPC_ITS ---
Vital Signs 04/12/23 13:04 Height 5 ft 5 in Weight 162 lb 8 oz BMI 27.0 BP 118/74 Blood Pressure Location Lt brachial Position Sitting Pulse 98 Pulse Source Pulse Oximeter Pulse Oximetry (%) 98 Oxygen Delivery Method Room Air Intake Visit Reasons: 4 month fu Intake Note: Patient here for diabetes follow up. Allergies No Known Allergies Allergy (Verified 04/12/23 13:27) Medication List - Last Reconciled 04/12/23 by Hanna Patten MD acamprosate 333 mg PO BID acetaminophen ER (Tylenol Arthritis Pain) 650 mg PO Q8H PRN alcohol swabs (Alcohol Prep Pads) pad topical aspirin 81 mg PO DAILY blood sugar diagnostic ([place] TALK test strips) USE TO TEST FINGER STICK BLOOD SUGAR ONCE DAILY blood-glucose meter (Post.Bid.ShipStyle Lite Meter kit) As directed cholecalciferol (vitamin D3) 1,250 mcg PO QWEEK 3 months escitalopram oxalate 20 mg PO DAILY folic acid 1 mg PO DAILY glipizide 10 mg PO DAILY lancets (Vanderdroidyle Lancets) Test blood sugar once a day leg brace (Knee Brace Large-XLarge) use daily in left knee as directed lisinopril 5 mg PO DAILY metformin 1,000 mg (2 x 500 mg) PO BID multivitamin 1 tab PO DAILY multivitamin with folic acid 400 mcg (Daily-Johnathan (with folic acid)) 1 tab PO DAILY peg 3350-electrolytes 236-22.74-6.74 -5.86 gram (Golytely) 240 mL PO Q10M 1 day pioglitazone 45 mg PO DAILY quetiapine 25 mg PO BEDTIME simvastatin 10 mg PO BEDTIME thiamine HCl (vitamin B1) 50 mg (1/2 x 100 mg) PO DAILY Tobacco use date assessed: 12/27/22 HPI 4 month fu HPI Details 58-year-old male presents today for foll ow-up on his hyperlipidemia, hypertension, and diabetes mellitus, currently on simvastatin, lisinopril, glipizide 10 mg once a day, pioglitazone 45 mg daily, and metformin a 1000 mg 1 tablet twice a day. He has stopped drinking alcohol, currently on acamprosate started by psychiatrist. Patient states that his appetite is better, and epigastric pain has resolved since he stopped drinking alcoholic beverage. [facility] Medical History (Updated 05/19/23 @ 18:31 by Hanna Patten MD) Anemia Diabetes mellitus, without long-term current use of insulin History of alcoholism Polyarthralgia Vitamin D deficiency Colonoscopy refused Knee pain, bilateral COVID-19 vaccination declined Smokes 1.5-2 packs of cigarettes per day Cigarette smoker motivated to quit Knee pain, chronic Essential hypertension Alcohol use disorder Bipolar 1 disorder Diabetes mellitus with hyperglycemia, without long-term current use of insulin Family History Brother Mental health disorder Substance abuse Father Mental health disorder Mother Mental health disorder Social History Housing: Apartment Patient Tobacco Use Status: Current everyday Tobacco user Tobacco use type: Cigarette Cigarette Packs Per Day: 1 Cigarettes Per Day: 20 Years Smoked: 35 e-Cigarette/Vaping Use: Never Used Second Hand Smoke Exposure: Yes Current occupational status: disabled Cognitive needs: No Hearing needs: No Vision needs: Yes Questionnaire Thrive Questionnaire Date Thrive assessed: 12/27/22 AUDIT C Alcohol Use Questionnaire (AUDIT-C) 1. How often do you have a drink containing alcohol?: Never (Stop drinking alcoholic beverage, currently on Acamprosate) Total Score: 0 Review of Systems Const Denies fatigue, Denies fever(s), Denies night sweats and Denies weight loss ENT Denies dysphagia, Denies odynophagia, Denies throat swelling and Denies tongue swelling Card Reports no additional complaints Resp Reports no additional complaints GI Denies melena, Denies bloating, Denies hematochezia, Denies constipation, Denies dysphagia, Denies excessive flatus, Denies early satiety, Reports heartburn, Denies nausea, Denies odynophagia, Denies vomiting and Denies hematemesis Reports no additional complaints Musc Reports abnormal gait Skin/Breast Denies pruritus, Denies lesions, Denies rash and Denies jaundice Neuro Denies Abnormal speech present and Reports abnormal gait Psych Reports no additional complaints Endo Denies fatigue Melvin/Lymph Reports no additional complaints Aller/Immun Denies throat swelling and Denies tongue swelling Physical exam (Primary Care) Vital Signs: Last Vital Signs Pulse 98 04/12/23 13:04 BP 118/74 04/12/23 13:04 Pulse Ox 98 04/12/23 13:04 Oxygen Delivery Method Room Air 04/12/23 13:04 BMI result Body Mass Index 27.0 Tobacco/Smoking Status: Tobacco use Status Tobacco use date assessed 12/27/22 04/12/23 13:03 Patient Tobacco Use Status Current everyday Tobacco 04/12/23 13:03 Tobacco use type Cigarette 04/12/23 13:03 e-Cigarette/Vaping Use Never Used 04/12/23 13:03 Are you ready to quit: No Thrive Assessment: Date of Thrive Assessment Date Thrive assessed 12/27/22 04/12/23 13:03 Const Other: Accompanied by LIFE INSURANCE SPECIALIST General: cooperative, comfortable and no acute distress Nutritional Appearance: average body habitus Orientation/consciousness: patient oriented x3 HENMT Head: Yes normocephalic Face and sinus: Yes face symmetric Mouth: Normal oral and palatal mucosa present, oropharynx normal and moist mucous membranes Eyes General: appearance normal, both eyes and all related structures Neck Neck: Yes full ROM, Yes no lymphadenopathy and Yes supple Resp Effort & Inspection: normal respiratory effort and able to speak in complete sentences Auscultation: clear to auscultation bilaterally Cardio Other: S1-S2 present regular rate and rhythm GI Palpation (GI): Soft to palpation, nontender, no guarding and no masses Back/Spine/Pelvis Back: No back tenderness Skin General skin exam: dry skin Neuro General: patient oriented x3, gait normal, tone normal, moves all extremities, no focal motor deficits and CN's II-XI intact bilaterally Speech: No Abnormal speech present Extrem General: Yes full ROM, Yes no joint enlargement, Yes no pedal edema, Yes no calf tenderness and Yes normal gait Psych Other: Positive crepitus in knees Appearance: grossly normal and well kempt Mental Status: mental status grossly normal Speech and movement: Normal speech and movement present Affect: normal affect Attitude: cooperative Results Reviewed Results Reviewed: Name: Epi Ramachandran Age/Sex: 57/M : 1965 Unit#: [id number] Attend Dr: Hanna Patten MD Re12/30/22 Status: DEP [facility] Disch: SPEC : [id number] TOMAS: 12/30/22 STATUS: COMP REQ : [id number] RECD: 12/30/[address]: Hanna Patten MD COMP: 12/30/22 ENTERED: 12/30/[address] [facility] [address]: ORDERED: CMP Fast, Lipid Panel, Vitamin D 25-OH Test Result Flag Reference Site Sodium 140 135-145 mmol/L Potassium 4.2 3.3-5.1 mmol/L CL 106 96-108 mmol/L CO2 24 22-29 mmol/L Gap 14 12-20 BUN 6 L 9-16 mg/dL Creat 0.75 0.5-1.4 mg/dL EGFR > 60 NOTE: For -Burmese individuals, multiply the result by 1.210. Chronic Kidney Disease: Estimated GFR < 60 mL/min/1.73m2 Severe Kidney Disease: Estimated GFR < 15 mL/min/1.73m2 FBS 116 H 60-99 mg/dL A fasting glucose from 100-125 mg/dl is considered impaired (pre-diabetes). CA 9.8 # 8.4-10.2 mg/dL Total Bili 0.6 0.0-1.0 mg/dL AST (GOT) 29 5-37 U/L ALT (GPT) 25 0-40 U/L Protein, Total 7.5 6.5-8.0 g/dL Alb 4.3 3.5-5.0 g/dL Triglyceride 35 <150 mg/dL Desirable Triglyceride: less than 150 mg/dL Borderline High Triglyceride 150-199 mg/dL High Triglyceride: 200-499 mg/dL Very High Triglyceride: greater than or equal to 5OO mg/dL Cholesterol 105 <200 mg/dL Desirable Cholesterol: less than 200 mg/dL Borderline High Cholesterol: 200-239 mg/dL High Cholesterol: greater than 239 mg/dL LDL Calculated 49 <100 mg/dL Desirable LDL: less than 100 mg/dL Near Optimal/Above Optimal LDL: 110-129 mg/dL Borderline High LDL: 130-159 mg/dL High LDL: 160-189 mg/dL Very High LDL: greater than or equal to 190 mg/dL HDL 49 >40 mg/dL Desirable HDL: greater than 40 mg/dL Note: This HDL assay may give artificially low results in patients with liver disease. Alk Phos 109 39-117 U/L Vit D 25-OH Tot 25.2 >30 ng/mL Health Based Reference Values* < 20 ng/mL Deficient 20-30 ng/mL Insufficient > 30 ng/mL Sufficient NTERED: 04/11/23-922 OTHR MAHAJAN: ORDERED: CBC Auto Diff Test Result Flag Reference Site WBC 6.8 4.8-10.8 X10*3/uL RBC 3.96 L 4.60-5.80 X10*6/uL HGB 12.9 L 14.0-18.0 g/dl HCT 38.8 L 42.0-52.0 % MCV 98.0 80.0-98.0 fL MCH 32.6 27.0-33.0 pg MCHC 33.2 31.0-36.0 g/dl RDW 12.3 11.0-16.0 % PLT 155 L 160-400 X10*3/uL MPV 9.5 9.4-12.4 fL Neut Pct Auto 56.4 45-73 % ImGran Pct Auto 0.4 0.0-0.4 % Lymp Pct Auto 30.5 20-40 % [place] Pct Auto 9.4 2-11 % Eos Pct Auto 2.9 0-4 % Baso Pct Auto 0.4 0-2 % NRBC Pct Auto 0.0 0.0-0.2 /100WBC ANC Neut Abs # 3.8 2.0-8.3 x10*3/uL ImGran Abs Auto 0.03 0.00-0.03 X10*3/uL Lymph Abs Auto 2.1 1.2-4.9 X10*3/uL [place] Abs Auto 0.6 0.1-1.2 X10*3/uL Eos Abs Auto 0.2 0.0-0.4 X10*3/uL Baso Abs Auto 0.0 0.0-0.2 X10*3/uL NRBC Abs Auto 0.000 0.0-0.012 X10*3/uL Laboratory Tests 12/27/22 04/11/23 13:22 09:35 Estimat Average Glucose 137 Hgb A1c (Clinic) 7.9 H Hemoglobin A1c % 6.4 H RUN: 05/19/23 9306 PAGE 1 [facility] [address] [place] [id number] Family Living Educator: Ananda Goss M.D. Specimen Inquiry Name: Epi Ramachandran Age/Sex: 58/M : 1965 Unit#: [id number] Attend Dr: Hanna Patten MD Re04/11/23 Status: DEP REF Location: [facility] Disch: SPEC : [id number] TOMAS: 04/11/23 STATUS: COMP REQ : [id number] RECD: 04/11/[address]: Hanna Patten MD COMP: 04/11/23 ENTERED: 04/11/[address] [facility] [address]: ORDERED: CMP Fast, IRON PROF, Lipid Panel, Vitamin D 25-OH Test Result Flag Reference Sodium 139 135-145 mmol/L Potassium 4.0 3.3-5.1 mmol/L CL 105 96-108 mmol/L CO2 24 22-29 mmol/L Gap 14 12-20 BUN 7 L 9-16 mg/dL Creat 0.82 0.5-1.4 mg/dL EGFR > 60 NOTE: For -Burmese individuals, multiply the result by 1.210. Chronic Kidney Disease: Estimated GFR < 60 mL/min/1.73m2 Severe Kidney Disease: Estimated GFR < 15 mL/min/1.73m2 FBS 132 H 60-99 mg/dL A fasting glucose of 126 mg/dl or greater on more than one occasion is considered diagnostic of diabetes. CA 9.6 8.4-10.2 mg/dL Iron 127 45-160 mcg/dL TIBC 270 228-428 mcg/dL Saturation 47 15-50 % UIBC 143 ug/dL Total Bili 0.6 0.0-1.0 mg/dL AST (GOT) 26 5-37 U/L ALT (GPT) 21 0-40 U/L Protein, Total 7.2 6.5-8.0 g/dL Alb 4.1 3.5-5.0 g/dL Triglyceride 68 <150 mg/dL Desirable Triglyceride: less than 150 mg/dL Borderline High Triglyceride 150-199 mg/dL High Triglyceride: 200-499 mg/dL Very High Triglyceride: greater than or equal to 5OO mg/dL Cholesterol 122 <200 mg/dL Desirable Cholesterol: less than 200 mg/dL Borderline High Cholesterol: 200-239 mg/dL High Cholesterol: greater than 239 mg/dL LDL Calculated 70 <100 mg/dL Desirable LDL: less than 100 mg/dL Near Optimal/Above Optimal LDL: 110-129 mg/dL Borderline High LDL: 130-159 mg/dL High LDL: 160-189 mg/dL Very High LDL: greater than or equal to 190 mg/dL HDL 39 L >40 mg/dL Desirable HDL: greater than 40 mg/dL Note: This HDL assay may give artificially low results in patients with liver disease. Alk Phos 103 39-117 U/L Vit D 25-OH Tot 44.1 >30 ng/mL Health Based Reference Values* < 20 ng/mL Deficient 20-30 ng/mL Insufficient > 30 ng/mL Sufficient Assessment and Plan Assessment & Plan (1) Essential hypertension: Code(s): I10 - Essential (primary) hypertension Plan: Blood pressure at goal of less than 130/80. Continue with lisinopril 5 mg once a day Reinforced importance of following a low sodium diet, getting regular exercise, and lowering stress levels, stopping smoking and continue abstinence from alcohol. (2) Diabetes mellitus, without long-term current use of insulin: Code(s): E11.9 - Type 2 diabetes mellitus without complications Plan: Recent lab results reviewed with patient, with sugar and hemoglobin A1c stable and at goal continue with metformin, glipizide and pioglitazone. Continue to check fasting blood sugar at home, maintain log and bring to next appointment for review. Reinforced diabetic diet and regular exercise with patient. Counseled regarding importance of yearly diabetes retinopathy screening. Patient advised to inspect feet daily, for any signs of injury, callus or infection. Compliance with diet and regular exercise again stressed. Blood pressure goal is less than 130/80, goal LDL is less than 100 and goal hemoglobin A1c is less than 7% follow-up appointment made in-4--months, after fasting labs done. (3) Alcohol use disorder: Comment: Started on Acamprosate by [facility] Plan: Has been sober now for at least 1 month, currently on acamprosate, given buys his psychiatrist and folic acid supplements and thiamine supplement (4) Bipolar 1 disorder: Comment: Sees med prescriber at [facility] Code(s): F31.9 - Bipolar disorder, unspecified Plan: Currently followed by psychiatrist at [facility] (5) COVID-19 vaccination declined: Code(s): Z28.21 - Immunization not carried out because of patient refusal (6) Smokes 1.5-2 packs of cigarettes per day: Code(s): F17.210 - Nicotine dependence, cigarettes, uncomplicated Plan: Patient strongly advised to stop smoking, as smoking damages blood vessels, degenerative of joints and spine, damage to lungs and heart., predisposes to developing certain cancers like lung, breast, bladder, colon. Recommended to try decreasing cigarette use by 1-2 cigarettes a day. Advised to monitor what triggers are for smoking so that this can be discussed on the next office visit. We can discuss different options to quit smoking when ready. (7) Anemia: Code(s): D64.9 - Anemia, unspecified Qualifiers: Anemia type: unspecified type Qualified Code(s): D64.9 - Anemia, unspecified Plan: Has been referred to GI, and has an appointment already scheduled in July 2023 for an EGD and a screening colonoscopy. Orders: Orders Lipid Panel 07/31/23 F10.21 - Alcohol dependence, in remission, E55.9 - Vitamin D deficiency, unspecified, I10 - Essential (primary) hypertension, E11.65 - Type 2 diabetes mellitus with hyperglycemia, D64.9 - Anemia, unspecified Microalbumin, Random (w Creat) 07/31/23 F10.21 - Alcohol dependence, in remission, E55.9 - Vitamin D deficiency, unspecified, I10 - Essential (primary) hypertension, E11.65 - Type 2 diabetes mellitus with hyperglycemia, D64.9 - Anemia, unspecified Hemoglobin A1c 07/31/23 F10.21 - Alcohol dependence, in remission, E55.9 - Vitamin D deficiency, unspecified, I10 - Essential (primary) hypertension, E11.65 - Type 2 diabetes mellitus with hyperglycemia, D64.9 - Anemia, unspecified Complete Blood Count Auto Diff 07/31/23 F10.21 - Alcohol dependence, in remission, E55.9 - Vitamin D deficiency, unspecified, I10 - Essential (primary) hypertension, E11.65 - Type 2 diabetes mellitus with hyperglycemia, D64.9 - Anemia, unspecified IRON PROFILE 07/31/23 F10.21 - Alcohol dependence, in remission, E55.9 - Vitamin D deficiency, unspecified, I10 - Essential (primary) hypertension, E11.65 - Type 2 diabetes mellitus with hyperglycemia, D64.9 - Anemia, unspecified Comprehensive [place]. Panel Fast 07/31/23 F10.21 - Alcohol dependence, in remission, E55.9 - Vitamin D deficiency, unspecified, I10 - Essential (primary) hypertension, E11.65 - Type 2 diabetes mellitus with hyperglycemia, D64.9 - Anemia, unspecified Medications: Changed From metformin 1,000 mg (2 x 500 mg) PO BID 360 tabs 1RF To metformin 1,000 mg (2 x 500 mg) PO BID 360 tabs 1RF Coding Level of Care Code Est Pt Level 4 (70489) Diagnoses Essential hypertension I10 Diabetes mellitus, without long-term current use of insulin E11.9 Alcohol use disorder F10.90 Bipolar 1 disorder F31.9 COVID-19 vaccination declined Z28.21 Smokes 1.5-2 packs of cigarettes per day F17.210 Anemia, unspecified type D64.9 Anemia type: unspecified type
[2023-04-12 13:04] VITALS: BP 118/74; PULSE 98; O2SAT 98; BMI 27.0
== END 2023-04-12 13:37 | disposition home or self-care (01) ==
PROVIDERS: PCP Internal Medicine; Visit Provider Internal Medicine
DX: I10 Essential (primary) hypertension (principal); E11.9 Type 2 diabetes mellitus without complications; F10.90 Alcohol use, unspecified, uncomplicated; F31.9 Bipolar disorder, unspecified; Z28.21 Immunization not carried out because of patient refusal; F17.210 Nicotine dependence, cigarettes, uncomplicated; D64.9 Anemia, unspecified
CPT/HCPCS: 99214

== ENCOUNTER 2023-11-22 16:54 | Emergency (ER) | payer MEDICARE, MEDICAID, SELFPAY ==
--- NOTE | ~2023-11-22 | CT_ITS ---
EXAMINATION: CT HEAD WITHOUT CONTRAST CT CERVICAL SPINE WITHOUT CONTRAST CLINICAL INFORMATION: Intoxication and fall. COMPARISON: No relevant prior imaging. TECHNIQUE: Project Development Director images were obtained. CT imaging of the head and cervical spine was performed without contrast. Data was reformatted into multiplanar images at the acquisition workstation. This CT examination was performed using dose optimization techniques as appropriate, including one or more of the following: Automated exposure control, iterative reconstruction, and adjustment of technique factors (mA and/or kVp) according to patient size (this includes techniques or standardized protocols for targeted exams where dose is matched to indication/reason for exam). Fleischner Society criteria for the followup of incidental pulmonary nodules was implemented if appropriate. DLP: 1059 mGy-cm. FINDINGS: Head: There is no acute intracranial hemorrhage or abnormal extra-axial collection. No intracranial mass effect or midline shift. No hydrocephalus. Scattered nonspecific foci of hypoattenuation are visualized within the periventricular white matter. Ugarte-white matter differentiation is otherwise preserved and there is no evidence of acute territorial infarct. The calvarium and skull base are intact. Mastoid air cells and middle ear cavities are well aerated. No active paranasal sinus disease. Cervical spine: There is nonspecific straightening of the cervical lordosis. Alignment is otherwise normal. Vertebral body heights are preserved. Exuberant anterior disc osteophyte complexes are visualized at multiple levels within the cervical spine. Grossly no spinal canal compromise. Uncovertebral joint spurring and conjunction with facet degenerative change causes varying degrees of neuroforaminal encroachment. Visualized soft tissues of the neck are unremarkable. Of note there is extensive ossification of the stylohyoid ligaments, greater on the left with an apparent chronic fracture or pseudoarthrosis within its midportion on the left. CT/CT cervical spine wo IV con IMPRESSION: Head: No acute intracranial hemorrhage. There are scattered chronic small vessel ischemic changes within the periventricular white matter. Grossly no evidence of acute territorial infarct. Cervical Spine: There is multilevel degenerative spondylosis of the cervical spine. No evidence of acute fracture and no posttraumatic spinal subluxation. Of note there is extensive ossification of the stylohyoid ligaments, greater on the left with an apparent chronic fracture or pseudoarthrosis within its midportion on the left. Correlation with [place] syndrome is recommended.
--- NOTE | 2023-11-22 17:01 | ED_ITS ---
HPI - General Adult General Chief complaint: Fall Stated complaint: ETOH,FALL Time Seen by Provider: 11/22/23 16:56 Source: patient Mode of arrival: ambulatory Limitations: no limitations History of Present Illness ED Provider: Nelson Lennon PA-C HPI narrative: 58-year-old male history of alcohol abuse, hypertension, bipolar, and diabetes presents to ED for drinking and fall. Patient was in the [facility] [place] [facility] drinking alcohol and he fell off the wheelchair. EMS brought in patient with an neck brace. Patient denies any symptoms. Patient does not want detox Related Data Home Medications ?Medication ?Instructions ?Recorded ?Confirmed alcohol swabs (Alcohol Prep Pads) pad topical 11/11/20 12/27/22 acamprosate 333 mg tablet,delayed 333 mg PO BID 01/05/23 01/05/23 release multivitamin with folic acid 400 1 tab PO DAILY 04/04/23 mcg tablet (Daily-Johnathan (with folic acid)) quetiapine 25 mg tablet 25 mg PO BEDTIME 04/04/23 Previous Rx's ?Medication ?Instructions ?Recorded leg brace (Knee Brace Large-XLarge) #1 ea 01/25/21 escitalopram oxalate 20 mg tablet 20 mg PO DAILY #90 tabs 06/13/22 blood-glucose meter (FreeStyle #1 ea 12/13/22 Lite Meter kit) cholecalciferol (vitamin D3) 1,250 1,250 mcg PO QWEEK 3 months #13 01/05/23 mcg (50,000 unit) capsule caps aspirin 81 mg tablet,delayed 81 mg PO DAILY #90 tabs 03/01/23 release glipizide 10 mg tablet 10 mg PO DAILY #90 tabs 03/01/23 lisinopril 5 mg tablet 5 mg PO DAILY #90 tabs 03/01/23 multivitamin 1 tab PO DAILY #90 tabs 03/01/23 pioglitazone 45 mg tablet 45 mg PO DAILY #90 tabs 03/26/23 simvastatin 10 mg tablet 10 mg PO BEDTIME #90 tabs 03/26/23 peg 3350-electrolytes 236 240 ml PO Q10M 1 day #4,000 mL 04/04/23 gram-22.74 gram-6.74 gram-5.86 gram solution (Golytely) blood sugar diagnostic (Embrace #100 strips 04/07/23 TALK test strips) metformin 500 mg tablet 1,000 mg (2 x 500 mg) PO BID #360 04/12/23 tabs acetaminophen 650 mg 650 mg PO Q8H PRN pain #90 tabs 05/23/23 tablet,extended release (Tylenol Arthritis Pain) folic acid 1 mg tablet 1 mg PO DAILY #90 tabs 06/12/23 thiamine HCl (vitamin B1) 100 mg 50 mg (1/2 x 100 mg) PO DAILY #45 06/12/23 tablet tabs lancets 30 gauge (Easy Comfort #100 ea 07/14/23 Lancets) bisacodyl 5 mg tablet,delayed 20 mg (4 x 5 mg) PO ONCE 08/03/23 release (Dulcolax (bisacodyl)) colonoscopy prep 1 day #4 tabs Allergies Allergy/AdvReac Type Severity Reaction Status Date / Time No Known Allergies Allergy Verified 11/22/23 17:04 Review of Systems Review of Systems: Drinking and fall Yes all other systems are reviewed and are negative PMFSH Past Medical History Medical History (Updated 05/19/23 @ 18:31 by Hanna Patten MD) Anemia Diabetes mellitus, without long-term current use of insulin History of alcoholism Polyarthralgia Vitamin D deficiency Colonoscopy refused Knee pain, bilateral COVID-19 vaccination declined Smokes 1.5-2 packs of cigarettes per day Cigarette smoker motivated to quit Knee pain, chronic Essential hypertension Alcohol use disorder Bipolar 1 disorder Diabetes mellitus with hyperglycemia, without long-term current use of insulin Family History Family History Brother Mental health disorder Substance abuse Father Mental health disorder Mother Mental health disorder Social History Social History Housing: Apartment Alcohol intake: current Alcohol intake frequency: 3 or more drinks per day Alcohol type: beer and hard liquor Patient Tobacco Use Status: Current everyday Tobacco user Tobacco use type: Cigarette Cigarette Packs Per Day: 1 Cigarettes Per Day: 20 Years Smoked: 35 Smoked in Last 30 Days: Yes e-Cigarette/Vaping Use: Never Used Second Hand Smoke Exposure: Yes Use of substances other than those prescribed or required for medical reasons: Refusing to respond Advance Directives: Yes Advance Directives on File: Yes Advance Directives Date on File: 08/08/22 Do you have a plan to hurt others: No Plan Current occupational status: disabled Cognitive needs: No Hearing needs: No Vision needs: Yes Physical Exam ED Vital Signs: Vital Signs - 24 hr 11/22/23 23:06 Temperature 0 F L Pulse Rate 0 L Respiratory Rate 0 L Blood Pressure 0/0 L Pulse Oximetry 0 L Oxygen Delivery Method Room Air BMI result Body Mass Index 26.5 Const General: cooperative, healthy appearing, comfortable, no acute distress, well developed, alert, awake and Physically active Orientation/consciousness: patient oriented x3 HENMT Head: Yes normal to inspection, Yes No palpable skull fracture present, Yes normocephalic, Yes atraumatic and No abrasion Eyes General: appearance normal, both eyes and all related structures Neck Neck: Yes normal visual inspection, Yes full ROM, Yes no lymphadenopathy, Yes no meningeal signs, Yes trachea midline, Yes supple, No anterior neck swelling and No tender Chest Chest palpation & inspection: normal inspection of the chest and normal palpation of entire chest wall Resp Effort & Inspection: normal respiratory effort and able to speak in complete sentences Auscultation: clear to auscultation bilaterally Cardio Jugular venous distension: no JVD Heart sounds: S1 normal heart sound present and S2 normal heart sound present GI Inspection: Yes normal to inspection Palpation (GI): Soft to palpation, not firm, nontender, no guarding and not rigid General: No CVA tenderness and Yes no CVA tenderness Back/Spine/Pelvis Back: no CVA tenderness, No CVA tenderness and No back tenderness Skin General skin exam: no rashes or lesions noted, elasticity normal and turgor normal Neuro Other: Alcohol on Breath General: patient oriented x3, gait normal, tone normal, moves all extremities, Normal light touch and pain sensation, no meningeal signs, no focal motor deficits, CN's II-XI intact bilaterally and normal sensation to monofilament Extrem General: Yes normal to inspection, Yes full ROM and Yes capillary refill normal Psych Appearance: grossly normal, well kempt and not disheveled Medical Decision Making Medical Decision Making MDM Narrative: 58-year-old male history alcohol abuse presents to ED for drinking alcohol and falling alcohol smell on breath. No obvious signs of trauma whole-body evaluated. Due to patient's drinking falling although he says fell off wheelchair low impact was sent for head CT cervical spine CT. Patient agreeable to plan. 10:38pm: Patient head CT scan came back negative for brain bleed or fracture. patient's whole body evaluated negative for any life threatening injuries. negative for signs of extremity fractures. 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 Patient has no cervical spine tenderness on palpation. Patient informed of nightmute syndrome and told to follow up with primary care provider. Not suspecting any hemothorax, pneumothorax, abdominal internal organ injury, or fracture extremities. Differential Diagnosis Differential Diagnoses: The differential diagnosis associated with the presentation includes (Alcohol abuse, brain bleed, cervical spine fracture, skull fracture) Admission/Observation Consideration of admission/observation: Escalation of care including admission/observation considered Lab Data MDM Lab Attestation statement: I reviewed the patient's lab results. Independent Interpretation I performed an independent interpretation of an: CT Scan Radiology Impression Discussion of test interpretation with radiology: I have reviewed the radiologist's reading. Independent Historian Clinical information obtained from an independent historian. History obtained from or confirmed by: EMS (EMS) and Other (Patient) External Record Review External record reviewed: Other (Prior visit) Discharge Plan Discharge Clinical Impression: Alcohol abuse Patient Disposition: Home, Self-Care Instructions: Abuse of Alcohol (ED) Additional Instructions: Your cervical CT scan shows [place] Syndrome. Recommend follow up with PCP. Return to the ED for any headache, dizziness, nausea, vomiting, chest pain, shortness of breath, jaw pain, numbness/tingling of upper extremities, elbow pain,. Extremities, any other concerning symptoms. CT/CT cervical spine wo IV con IMPRESSION: Head: No acute intracranial hemorrhage. There are scattered chronic small vessel ischemic changes within the periventricular white matter. Grossly no evidence of acute territorial infarct. Cervical Spine: There is multilevel degenerative spondylosis of the cervical spine. No evidence of acute fracture and no posttraumatic spinal subluxation. Of note there is extensive ossification of the stylohyoid ligaments, greater on the left with an apparent chronic fracture or pseudoarthrosis within its midportion on the left. Correlation with [place] syndrome is recommended. Prescriptions: No Action escitalopram oxalate 20 mg tablet 20 mg PO DAILY Qty: 90 0RF Rx Instructions: Schedule next PCP appt for more refills (DME) blood-glucose meter [FreeStyle Lite Meter] Kit See Rx Instructions .Route Qty: 1 0RF Rx Instructions: As directed cholecalciferol (vitamin D3) 1,250 mcg (50,000 unit) capsule 1,250 mcg PO QWEEK 90 Days Qty: 13 0RF aspirin 81 mg tablet,delayed release (DR/EC) 81 mg PO DAILY Qty: 90 1RF lisinopril 5 mg tablet 5 mg PO DAILY Qty: 90 1RF glipizide 10 mg tablet 10 mg PO DAILY Qty: 90 1RF multivitamin Tablet 1 tab PO DAILY Qty: 90 1RF pioglitazone 45 mg tablet 45 mg PO DAILY Qty: 90 1RF simvastatin 10 mg tablet 10 mg PO BEDTIME Qty: 90 1RF (DME) Embrace TALK test strips Strip See Rx Instructions .ROUTE .COMPLEX Qty: 100 4RF Dose Instruction: USE TO TEST FINGER STICK BLOOD SUGAR ONCE DAILY Rx Instructions: USE TO TEST FINGER STICK BLOOD SUGAR ONCE DAILY acetaminophen [Tylenol Arthritis Pain] 650 mg tablet extended release 650 mg PO Q8H PRN (Reason: pain) Qty: 90 0RF folic acid 1 mg tablet 1 mg PO DAILY Qty: 90 1RF thiamine HCl (vitamin B1) 100 mg tablet 50 mg PO DAILY Qty: 45 1RF (DME) lancets [Easy Comfort Lancets] 30 gauge misc See Rx Instructions .ROUTE .COMPLEX Qty: 100 1RF Dose Instruction: USE TO TEST FINGER STICK BLOOD SUGAR ONCE DAILY Rx Instructions: USE TO TEST FINGER STICK BLOOD SUGAR ONCE DAILY bisacodyl [Dulcolax (bisacodyl)] 5 mg tablet,delayed release (DR/EC) 20 mg PO ONCE 1 Days Qty: 4 0RF Rx Instructions: take 4 tablets of dulcolax the day before your colonoscopy. alcohol swabs [Alcohol Prep Pads] Pads, Medicated topical (DME) Knee Brace Large-XLarge Misc See Rx Instructions .Route Qty: 1 0RF Rx Instructions: use daily in left knee as directed acamprosate 333 mg tablet,delayed release (DR/EC) 333 mg PO BID Rx Instructions: administer with mid-day and evening meals metformin 500 mg tablet 1,000 mg PO BID Qty: 360 1RF quetiapine 25 mg tablet 25 mg PO BEDTIME multivitamin with folic acid [Daily-Johnathan (with folic acid)] 400 mcg tablet 1 tab PO DAILY peg 3350-electrolytes [Golytely] 236-22.74-6.74 -5.86 gram recon soln 240 ml PO Q10M 1 Days Qty: 4000 0RF Rx Instructions: until fecal effluent is clear; do not exceed a total volume of 2,000 mL Interventions: ED Discharge Assessment Last Done: 11/22/23 23:06 Discharge Date/Time: 11/22/23 23:07 Print Language: Croatian
[2023-11-22 17:03] VITALS: BP 148/102; PULSE 94; O2SAT 98; BMI 26.5
--- NOTE | 2023-11-22 17:20 | PC.NURSE ---
pt nicholas from [address] d/t etoh - witnessed mechanical fall from wheelchair to ground. -headstrike, -loc, -thinners. c-collar via EMS. small skin tear noted to left wrist. pt agitated/resistant to care upon ED arrival. vss and up to date. pt not cooperating/answering this RNs questions appropriately. pt currently refusing to be changed over into hospital attire. pt seen by ED provider. no sob/wob noted. respirations even/unlabored. plan of care ongoing. call anthony placed within reach.
[2023-11-22 17:24] VITALS: BP 117/83; PULSE 88; RESP 18; TEMP 36.7; O2SAT 98
--- NOTE | 2023-11-22 17:31 | MHC.EDTECH ---
pt yelling in hallway, threatening to leave. patient is refusing to change.
--- NOTE | 2023-11-22 18:30 | PC.NURSE ---
pt to CT at this time.
[2023-11-22 20:03] VITALS: BP 118/80; PULSE 91; RESP 16; TEMP 36.6; O2SAT 98
--- NOTE | 2023-11-22 20:22 | PC.NURSE ---
pt continues to rest comfortably in stretcher in no apparent distress. c-collar still in place. waiting for CT results at this time. no sob/wob noted. respirations even/unlabored.
--- NOTE | 2023-11-22 22:57 | MHC.EDTECH ---
pt refused vitals prior to discharge. rn aware.
[2023-11-22 23:06] VITALS: BP 0/0; PULSE 0; RESP 0; TEMP -17.7; TEMP 0; O2SAT 0
== END 2023-11-22 23:07 | disposition home or self-care (01) ==
PROVIDERS: Emergency Provider Emergency Medicine
DX: F10.10 Alcohol abuse, uncomplicated (principal); Y90.9 Presence of alcohol in blood, level not specified; Z91.81 History of falling; F17.210 Nicotine dependence, cigarettes, uncomplicated; Z79.82 Long term (current) use of aspirin; Z79.899 Other long term (current) drug therapy
CPT/HCPCS: 70450; 72125; 99284; 99285

== ENCOUNTER 2024-01-16 08:53 | Outpatient (AMB) | payer MEDICARE, MEDICAID, SELFPAY ==
[2024-01-16 09:08] VITALS: BP 130/80; PULSE 109; O2SAT 97; BMI 24.5
--- NOTE | 2024-01-16 09:08 | MHC.PC.OV ---
Vital Signs 01/16/24 09:08 Height 5 ft 5 in Weight 147 lb BMI 24.5 BP 130/80 Blood Pressure Location Lt brachial Position Sitting Pulse 109 H Pulse Source Pulse Oximeter Pulse Oximetry (%) 97 Oxygen Delivery Method Room Air Intake Visit Reasons: PE Intake Note: Pt is here today for his PE Allergies No Known Allergies Allergy (Verified 01/16/24 09:20) Medication List - Last Reconciled 01/16/24 by Hanna Patten MD acamprosate 333 mg PO BID acetaminophen ER (Tylenol Arthritis Pain) 650 mg PO Q8H PRN alcohol swabs (Alcohol Prep Pads) pad topical aspirin 81 mg PO DAILY blood sugar diagnostic (Embrace TALK test strips) USE TO TEST FINGER STICK BLOOD SUGAR ONCE DAILY blood-glucose meter (FreeStyle Lite Meter kit) As directed escitalopram oxalate 20 mg PO DAILY folic acid 1 mg PO DAILY glipizide 10 mg PO DAILY lancets (Easy Comfort Lancets) USE TO TEST FINGER STICK BLOOD SUGAR ONCE DAILY leg brace (Knee Brace Large-XLarge) use daily in left knee as directed lisinopril 5 mg PO DAILY metformin 1,000 mg (2 x 500 mg) PO BID multivitamin 1 tab PO DAILY pioglitazone 45 mg PO DAILY quetiapine 25 mg PO BEDTIME simvastatin 10 mg PO BEDTIME thiamine HCl (vitamin B1) 50 mg (1/2 x 100 mg) PO DAILY Tobacco use date assessed: 01/16/24 Dental Screening Dental Screen Date: 01/16/24 Did you have a dental visit in the last 12 months?: Yes Did you have a dental problem in the last 6 months where you did not have access to dental care?: No Was dental information given to patient?: Patient has dentist HPI PE HPI Details 59 year-old male with past medical history significant for hyperlipidemia, hypertension, , diabetes mellitus, and alcohol abuse, here today for physical exam.. He is accompanied today by his CHIEF BUILDING INSPECTOR, who gave most of the history as patient has not been very forthcoming. He presentsed to ED 10/2023 after a fall, had alcohol smell on breath. No obvious signs of trauma . Had a head CT scan which came back negative for brain bleed or fracture. 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 Patient has no cervical spine tenderness on palpation. He had a diabetic eye exam last year which showed Background diabetic retinopathy OU. Diabetes mellitus not well controlled, with today's hemoglobin A1c at 7.6%. Noted to be anemic on last CBC done in 03/2023. Was being prescribed Acamprosate by Psychiatry but has not been taking it, which led him drinking again and having the fall in October, which led to his ER visit. He was then sent to [facility] for about 2 weeks and was restarted back on Acamprosate , now being seen by a new psychiatrist at [facility] . He has been off acamprosate, and back to drinking . Still living in the homeless assisted. Awaiting placement to his own apartment. As per CHIEF BUILDING INSPECTOR, he is very unmotivated to do anything for himself, refuses to sometimes take his medication or keep doctor's appointments and does not want to take any vaccines. Has been poorly compliant with taking his medications CHIEF BUILDING INSPECTOR requesting to see if he can be referred to visiting nurse for medication management. [facility] Medical History (Updated 01/16/24 @ 09:57 by Hanna Patten MD) Anemia Diabetes mellitus, without long-term current use of insulin History of alcoholism Polyarthralgia Vitamin D deficiency Colonoscopy refused Knee pain, bilateral COVID-19 vaccination declined Smokes 1.5-2 packs of cigarettes per day Cigarette smoker motivated to quit Knee pain, chronic Essential hypertension Alcohol use disorder Bipolar 1 disorder Diabetes mellitus with hyperglycemia, without long-term current use of insulin Family History Brother Mental health disorder Substance abuse Father Mental health disorder Mother Mental health disorder Social History Housing: Apartment Alcohol intake: current Alcohol intake frequency: 3 or more drinks per day Alcohol type: beer and hard liquor Patient Tobacco Use Status: Current everyday Tobacco user Tobacco use type: Cigarette Cigarette Packs Per Day: 1 Cigarettes Per Day: 20 Years Smoked: 35 e-Cigarette/Vaping Use: Never Used Second Hand Smoke Exposure: Yes Advance Directives Date on File: 08/08/22 Current occupational status: disabled Cognitive needs: No Hearing needs: No Vision needs: Yes Questionnaire PHQ-9 Over the last 2 weeks, how often have you been bothered by any of the following problems? 1. Little interest or pleasure in doing things: more than half the days 2. Feeling down, depressed, or hopeless: more than half the days 3. Trouble falling or staying asleep, or sleeping too much: more than half the days 4. Feeling tired or having little energy: more than half the days 5. Poor appetite or overeating: more than half the days 6. Feeling bad about yourself - or that you are a failure or have let yourself or your family down: more than half the days 7. Trouble concentrating on things, such as reading the newspaper or watching television: more than half the days 8. Moving or speaking so slowly that other people could have noticed. Or the opposite - being so fidgety or restless that you have been moving around a lot more than usual: more than half the days 9. Thoughts that you would be better off or of hurting yourself in some way: several days Total score: 17 Depression Screening Interpretation: Positive (Followed at [facility]) Depression Screening Follow-up: Existing condition, In treatment and Community Mental Health Worker F/U Depression Screening Done: Yes 93098 - PHQ-9 Billing: Yes Source: Developed by Drs. Manjit Barbour, Elizabeth Samaniego, Artem Rivera and colleagues, with an educational jessica from [employer]. Thrive Questionnaire Date Thrive assessed: 01/16/24 I am a: Patient What is your living situation today?: I have a place to live, but I am worried about losing it in the future (in homeless assisted) Within the past 12 months, did the food you bought not last and you didn't have the money to get more?: Never true Within the past 12 months, did you worry whether your food would run out before you got money to buy more?: Never true Do you have trouble paying for medicines?: No Do you have trouble getting transportation to medical appointments?: No Do you have trouble paying your heating and electricity bill?: No Do you have trouble taking care of your child, family member or friend?: No Do you have trouble with day-to-day activities such as bathing, preparing meals, shopping, managing finances, etc.?: Yes Are you currently unemployed and looking for a job?: No Are you interested in more education?: No Please select the resources that you would like help with: Housing/Chcf Currently or been in a relationship where the following occur: I choose not to answer THRIVE Score: 1 AUDIT C Alcohol Use Questionnaire (AUDIT-C) 1. How often do you have a drink containing alcohol?: Monthly or less 2. How many drinks containing alcohol do you have on a typical day when you are drinking?: 3 or 4 3. How often do you have six or more drinks on one occasion?: Weekly Total Score: 5 Score Reviewed/Action Taken: Yes (Currently being followed at [facility], but refusing to take Acamprosate ) MONSERRAT-7 AMB Questionnaire MONSERRAT-7 Date MONSERRAT - 7 assessed: 01/16/24 Feeling nervous, anxious, or on edge: 1 = Several days Not being able to stop or control worryin = Several days Worrying too much about different things: 1 = Several days Trouble relaxin = Several days Being so restless that it is hard to sit still: 1 = Several days Becoming easily annoyed or irritable: 1 = Several days Feeling afraid as if something awful might happen: 1 = Several days Total MONSERRAT-7 score (0-4 normal; 5-9 mild; 10-14 moderate; 15-21 severe): 7 Source: Developed by Drs. Manjit Barbour, Elizabeth Samaniego, Artem Rivera and colleagues, with an educational jessica from [employer]. MONSERRAT-7 Assessment Billing MONSERRAT-7 Assessment Tool: MONSERRAT-7 Assessment 09597 Review of Systems Const Denies fever(s), Denies night sweats and Denies weight loss Eyes Denies change in vision ENT Denies dysphagia, Denies odynophagia, Denies throat swelling and Denies tongue swelling Card Reports no additional complaints Resp Reports no additional complaints GI Denies melena, Denies bloating, Denies hematochezia, Denies constipation, Denies dysphagia, Denies excessive flatus, Denies early satiety, Reports heartburn, Denies nausea, Denies odynophagia, Denies vomiting and Denies hematemesis Reports no additional complaints Musc Reports abnormal gait, Reports arthralgias, Denies joint swelling and Reports stiffness Skin/Breast Denies pruritus, Denies lesions, Denies rash and Denies jaundice Neuro Denies Abnormal speech present and Reports abnormal gait Psych Reports no additional complaints Endo Reports no additional complaints Melvin/Lymph Reports no additional complaints Aller/Immun Denies throat swelling and Denies tongue swelling Physical exam (Primary Care) Vital Signs: Last Vital Signs Pulse 109 H 01/16/24 09:08 BP 130/80 01/16/24 09:08 Pulse Ox 97 01/16/24 09:08 Oxygen Delivery Method Room Air 01/16/24 09:08 BMI result Body Mass Index 24.5 Tobacco/Smoking Status: Tobacco use Status Tobacco use date assessed 01/16/24 01/16/24 09:16 Patient Tobacco Use Status Current everyday Tobacco 01/16/24 09:16 Tobacco use type Cigarette 01/16/24 09:16 e-Cigarette/Vaping Use Never Used 01/16/24 09:16 Are you ready to quit: No PHQ-9: PHQ-9 Score PHQ-9: Total score 17 01/16/24 10:39 Depression Screening Interpretation: Positive (Followed at [facility]) Depression Screening Follow-up: Existing condition, In treatment and Community Mental Health Worker F/U Thrive Assessment: Date of Thrive Assessment Date Thrive assessed 01/16/24 01/16/24 09:16 Currently or been in a relationship where the following occur: I choose not to answer Const Other: Accompanied by CHIEF BUILDING INSPECTOR General: comfortable and no acute distress Nutritional Appearance: average body habitus Orientation/consciousness: patient oriented x3 HENMT Head: Yes normocephalic Face and sinus: Yes face symmetric Mouth: Normal oral and palatal mucosa present, oropharynx normal and moist mucous membranes Eyes General: appearance normal, both eyes and all related structures Neck Neck: Yes full ROM, Yes no lymphadenopathy and Yes supple Resp Effort & Inspection: normal respiratory effort Auscultation: clear to auscultation bilaterally Cardio Other: S1-S2 present regular rate and rhythm GI Palpation (GI): Soft to palpation, nontender, no guarding and no masses Other: refused exam Back/Spine/Pelvis Back: No back tenderness Skin General skin exam: dry skin Neuro General: patient oriented x3, gait normal, tone normal, moves all extremities, no focal motor deficits and CN's II-XI intact bilaterally Speech: No Abnormal speech present Extrem General: Yes full ROM, Yes no joint enlargement, Yes no pedal edema, Yes no calf tenderness and Yes normal gait Psych Other: Positive crepitus in knees Appearance: grossly normal Mental Status: mental status grossly normal Affect: Indifferent affect present Attitude: Avoids eye contact (attititude/behavior) Results AMB Hemoglobin A1c AMB Hemoglobin A1c 7.6 % Last Edit by Rosana Aldana CMA on 01/16/24 09:21 Results Reviewed Results Reviewed: Laboratory Last Values Hgb A1c (Clinic) 7.6 % (4.0-6.0) H 01/16/24 09:02 Assessment and Plan Assessment & Plan (1) Annual visit for general adult medical examination with abnormal findings: Code(s): Z00.01 - Encounter for general adult medical examination with abnormal findings Plan: Advise patient to get his fasting labs done, orders already in the lab. Stressed importance of getting regular dental prophylaxis, get yearly diabetes retinopathy screening and eye exam. Patient has been strongly advised to quit smoking and drinking but unwilling to do so at present time, he is already being followed at and for his depression and alcoholism. Will refer to [facility] for medication manage as patient is CHIEF BUILDING INSPECTOR is concerned that he has not really been taking his medications. He was referred to Natali EDUARDO for assistance with getting placement for housing, currently in homeless assisted. As per Natali he has to apply for however housing himself . He has been referred for screening colonoscopy in the past but canceled appointment, does not want to get procedure done, Cologuard testing offered but patient refused. He also has refused to get any vaccines (2) COVID-19 vaccination declined: Code(s): Z28.21 - Immunization not carried out because of patient refusal (3) Essential hypertension: Code(s): I10 - Essential (primary) hypertension Plan: Blood pressure at goal of less than 130/80. Continue with lisinopril 5 mg daily. Reinforced importance of following a low sodium diet, getting regular exercise, and lowering stress levels, advised to quit smoking and avoid any alcohol intake (4) Diabetes mellitus with hyperglycemia, without long-term current use of insulin: Code(s): E11.65 - Type 2 diabetes mellitus with hyperglycemia Qualifiers: Diabetes mellitus type: type 2 Qualified Code(s): E11.65 - Type 2 diabetes mellitus with hyperglycemia Plan: Hemoglobin A1c today is 7.6% currently on metformin , pioglitazone, and glipizide, but has not been testing his blood sugars at home. Advised to get his fasting labs done, already ordered an in-lab to check basic metabolic panel, lipid panel and CBC as well as liver enzyme (5) Smokes 1.5-2 packs of cigarettes per day: Code(s): F17.210 - Nicotine dependence, cigarettes, uncomplicated Plan: Patient strongly advised to stop smoking, as smoking damages blood vessels, degenerative of joints and spine, damage to lungs and heart., predisposes to developing certain cancers like lung, breast, bladder, colon. Recommended to try decreasing cigarette use by 1-2 cigarettes a day. Advised to monitor what triggers are for smoking so that this can be discussed on the next office visit. We can discuss different options to quit smoking when ready. (6) Bipolar 1 disorder: Comment: Sees med prescriber at [facility], cookie goes to [facility] Code(s): F31.9 - Bipolar disorder, unspecified Plan: Currently followed at [facility] (7) Alcohol use disorder: Comment: Started on Acamprosate by [facility] Plan: Patient unwilling to quit drinking, has been on acamprosate and prescribed in the past currently being seen at [facility] , but not willing to start taking acamprosate again (8) Anemia: Code(s): D64.9 - Anemia, unspecified Qualifiers: Anemia type: unspecified type Qualified Code(s): D64.9 - Anemia, unspecified Plan: Last CBC 04/19/2023 showed anemi, a repeat CBC has been ordered together with iron profile labs already in from 08/19/2023, advise patient to get it drawn (9) Polyarthralgia: Code(s): M25.50 - Pain in unspecified joint Plan: [facility] acetaminophen 650 mg 1 tablet every 8 hours as needed for pain, strongly advised to abstain from all alcohol intake Orders: Orders AMB Hemoglobin A1c 01/16/24 E11.9 - Type 2 diabetes mellitus without complications Referrals [facility] Referral F31.9 - Bipolar disorder, unspecified, M25.50 - Pain in unspecified joint Coding Level of Care Code Est Pt Prev Care 40-64y(51753) Diagnoses Annual visit for general adult medical examination with abnormal findings Z00.01 COVID-19 vaccination declined Z28.21 Essential hypertension I10 Type 2 diabetes mellitus with hyperglycemia, without long-term current use of insulin E11.65 Diabetes mellitus type: type 2 Smokes 1.5-2 packs of cigarettes per day F17.210 Bipolar 1 disorder F31.9 Alcohol use disorder F10.90 Anemia, unspecified type D64.9 Anemia type: unspecified type Polyarthralgia M25.50 Additional Codes MONSERRAT-7 Assessment Billing - MONSERRAT-7 Assessment Tool: MONSERRAT-7 Assessment 43707 ([id number])
== END 2024-01-16 14:59 | disposition home or self-care (01) ==
PROVIDERS: PCP Internal Medicine; Visit Provider Internal Medicine
DX: Z00.00 Encounter for general adult medical examination without abnormal findings (principal); E11.65 Type 2 diabetes mellitus with hyperglycemia; F31.9 Bipolar disorder, unspecified; Z28.21 Immunization not carried out because of patient refusal; I10 Essential (primary) hypertension; F17.210 Nicotine dependence, cigarettes, uncomplicated; F10.90 Alcohol use, unspecified, uncomplicated; D64.9 Anemia, unspecified; M25.50 Pain in unspecified joint

== ENCOUNTER → 2024-01-16 08:53 | Outpatient (BNVA) | payer MEDICARE, MEDICAID, SELFPAY | PROVIDERS: PCP Internal Medicine; Visit Provider Internal Medicine | DX: Z00.01 Encounter for general adult medical examination with abnormal findings (principal); I10 Essential (primary) hypertension; E11.65 Type 2 diabetes mellitus with hyperglycemia; F17.210 Nicotine dependence, cigarettes, uncomplicated; Z71.6 Tobacco abuse counseling; F31.9 Bipolar disorder, unspecified; F10.90 Alcohol use, unspecified, uncomplicated; D64.9 Anemia, unspecified | CPT/HCPCS: 83036; 96127; 99396 ==

== ENCOUNTER 2024-06-30 10:23 | Emergency (ER) | payer MEDICARE, MEDICAID, SELFPAY ==
--- NOTE | ~2024-06-30 | CT_ITS ---
CLINICAL HISTORY: trouble walking, chronic urinary incontinence CT head without contrast. COMPARISON: CT head dated 11/22/23 at 18:30 EDT FINDINGS: The visualized paranasal sinuses are clear. The mastoid air cells are clear. No calvarial fracture. Atherosclerotic intracranial vasculature. No evidence for mass or mass effect. No intracranial hemorrhage or abnormal extra-axial fluid collection. No CT evidence of acute infarct. The ventricles are proportional with the degree of moderate global cerebral volume loss without evidence of hydrocephalus. Basilar cisterns are patent. There are periventricular areas of low attenuation compatible with [id number] white matter small vessel disease. Posterior fossa appears unremarkable. IMPRESSION: 1. No acute intracranial findings. This document has been electronically signed by: Isrrael Power MD on 06/30/2024 15:20:54
[2024-06-30 10:46] VITALS: BP 128/62; PULSE 77; O2SAT 99
[2024-06-30 11:04] VITALS: BP 174/117; PULSE 77; RESP 16; TEMP 36.4; O2SAT 99; BMI 20.8
--- NOTE | 2024-06-30 11:08 | ECG_ITS ---
Test Reason : fall Blood Pressure : */* mmHG Vent. Rate : 86 BPM Atrial Rate : 86 BPM P-R Int : 154 ms QRS Dur : 86 ms QT Int : 392 ms P-R-T Axes : 44 14 23 degrees QTcB Int : 469 ms Normal sinus rhythm Normal ECG No previous ECGs available Referred By: Luke Kwong Electronically Signed By: FRANK NASH MD
--- NOTE | 2024-06-30 11:14 | ED.GENADULT ---
HPI - General Adult General Chief complaint: General Medical Stated complaint: FEELING UNWELL Time Seen by Provider: 06/30/24 10:46 Source: patient and EMS Mode of arrival: EMS Limitations: language barrier History of Present Illness ED Provider: Luke Kwong DO HPI narrative: 59-year-old [place]an-speaking male with past medical history of anemia, [id number] diabetes, polyarthralgia, bipolar type 1 disorder, alcohol use disorder and hypertension presents to the emergency department from [facility] with reports that he is no longer able to walk using his cane due to bilateral lower extremity weakness which has progressively worsened over the past month with associated dizziness. He states the dizziness is a occasionally at rest but typically worsens when standing up to walk. He states he has had multiple falls over the past month, no recent head trauma and no pain or injuries today. Patient states he has had poor p.o. intake and consumes beer daily for the majority of the day. Although he had reported urinary symptoms tenderness, the patient denies any urinary symptoms to me, numbness or weakness of his legs, headache, tinnitus, decreased hearing, sore throat, cough, difficulty breathing, chest pain, abdominal pain, vomiting, diarrhea or black or bloody stools. He denies illicit drug use. Patient occasionally states he does have symptoms of pain in the bilateral lower extremities but not currently. History obtained with the assistance of in-person waiter/waitress cafeteria, Evelina. Related Data Home Medications ?Medication ?Instructions ?Recorded ?Confirmed alcohol swabs (Alcohol Prep Pads) pad topical 11/11/20 12/27/22 acamprosate 333 mg tablet,delayed 333 mg PO BID 01/05/23 01/05/23 release quetiapine 25 mg tablet 25 mg PO BEDTIME 04/04/23 Previous Rx's ?Medication ?Instructions ?Recorded leg brace (Knee Brace Large-XLarge) #1 ea 01/25/21 blood-glucose meter (FreeStyle #1 ea 12/13/22 Lite Meter kit) acetaminophen 650 mg 650 mg PO Q8H PRN pain #90 tabs 05/23/23 tablet,extended release (Tylenol Arthritis Pain) aspirin 81 mg tablet,delayed 81 mg PO DAILY #90 tabs 02/13/24 release blood sugar diagnostic (Embrace #100 strips 02/13/24 TALK test strips) escitalopram oxalate 20 mg tablet 20 mg PO DAILY #90 tabs 02/13/24 folic acid 1 mg tablet 1 mg PO DAILY #90 tabs 02/13/24 glipizide 10 mg tablet 10 mg PO DAILY #90 tabs 02/13/24 lancets 30 gauge (Easy Comfort #100 ea 02/13/24 Lancets) lisinopril 5 mg tablet 5 mg PO DAILY #90 tabs 02/13/24 metformin 500 mg tablet 1,000 mg (2 x 500 mg) PO BID #360 02/13/24 tabs multivitamin 1 tab PO DAILY #90 tabs 02/13/24 pioglitazone 45 mg tablet 45 mg PO DAILY #90 tabs 02/13/24 simvastatin 10 mg tablet 10 mg PO BEDTIME #90 tabs 02/13/24 thiamine HCl (vitamin B1) 100 mg 50 mg (1/2 x 100 mg) PO DAILY #45 02/13/24 tablet tabs blood-glucose meter (Embrace TALK #1 ea 04/17/24 Glucose Monitor) Allergies Allergy/AdvReac Type Severity Reaction Status Date / Time shellfish derived [shellfish] Allergy Unknown Verified 06/30/24 11:07 Review of Systems Review of Systems: Yes all other systems are reviewed and are negative PMFSH Past Medical History Medical History (Updated 06/30/24 @ 15:49 by Luke Kwong DO) Anemia Diabetes mellitus, without long-term current use of insulin History of alcoholism Polyarthralgia Vitamin D deficiency Colonoscopy refused Knee pain, bilateral COVID-19 vaccination declined Smokes 1.5-2 packs of cigarettes per day Cigarette smoker motivated to quit Knee pain, chronic Essential hypertension Alcohol use disorder Bipolar 1 disorder Diabetes mellitus with hyperglycemia, without long-term current use of insulin Family History Family History Brother Mental health disorder Substance abuse Father Mental health disorder Mother Mental health disorder Social History Social History Housing: Apartment Alcohol intake: current Alcohol intake frequency: 3 or more drinks per day Alcohol type: beer and hard liquor Patient Tobacco Use Status: Current everyday Tobacco user Tobacco use type: Cigarette Cigarette Packs Per Day: 1 Cigarettes Per Day: 20 Years Smoked: 35 e-Cigarette/Vaping Use: Never Used Second Hand Smoke Exposure: Yes Advance Directives: Yes Advance Directives on File: Yes Advance Directives Date on File: 08/08/22 Current occupational status: disabled Cognitive needs: No Hearing needs: No Vision needs: Yes Physical Exam ED Vital Signs: Vital Signs - 24 hr 06/30/24 11:04 Temperature 97.5 F Pulse Rate 77 Respiratory Rate 16 Blood Pressure 174/117 H Pulse Oximetry 99 Oxygen Delivery Method Room Air BMI result Body Mass Index 20.8 Constitutional: ?Alert, oriented, speaking in full sentences, appears weak when attempting to change position from semi recumbent to sitting, grabbing the hand rails HEENT: ?Normocephalic, atraumatic. ?Moist mucous membranes, poor dentition Eyes: ?PERRL, EOMI, mild bidirectional horizontal nystagmus Neck: ?Supple, nontender Chest: ?No chest wall tenderness Respiratory: ?Lungs clear to auscultation, no increased work of breathing Cardio: ?Regular rate and rhythm, no murmur, 2+ radial and DP pulses symmetrically GI: ?Soft, nondistended, nontender Back: ?Normal range of motion, nontender Skin: ?No rash, no lesions Neuro: ?Alert and oriented to person, place and time, moves all 4 extremities, no focal deficits, 5/5 strength and full sensation intact of the bilateral upper and lower extremities Extremities: ?No swelling or tenderness, full range of motion Psych: ?Calm, alert and cooperative, appropriate behavior Medications Administered Discontinued Medications Generic Name Dose Route Start Last Admin Trade Name Freq PRN Reason Stop Dose Admin Thiamine HCl 500 mg/ Sodium 105 mls @ 210 mls/hr 06/30/24 11:14 06/30/24 13:10 Chloride IV 06/30/24 11:43 Infused ONCE ONE Infusion Lactated Ringer's 1,000 mls @ 999 mls/hr 06/30/24 11:45 06/30/24 14:52 Lr IV 06/30/24 12:45 Infused .Q1H1M EDMUNDO Infusion Magnesium Oxide 400 mg 06/30/24 11:34 06/30/24 12:36 Magnesium Oxide 400 Mg Tablet PO 06/30/24 11:35 400 mg ONCE ONE Administration Medical Decision Making Medical Decision Making MDM Narrative: Patient presenting with chronic progressively worsening bilateral lower extremity weakness. He is vitally stable and otherwise appears well but chronically deconditioned. Given his alcohol use, there may be an element of vitamin deficiency and the patient is provided high-dose thiamine as well as magnesium. He is also provided IV fluids given likely orthostatic hypotension per history. He does also have diabetes and may have a component of diabetic neuropathy causing his symptoms. We will further evaluate with lab work. ECG is nonischemic and I do not suspect ACS. The patient may benefit from physical therapy and case management consultation for placement. Initial troponin slightly elevated to 6.8. Again, I do not suspect ACS as the patient has no active symptoms and has been weak for a long time. The patient has been unable to ambulate today and continues to have chronic urinary incontinence. There is also potential for some confusion although he does answer questions appropriately on initial evaluation. There is language barrier present. There is consideration for Wernicke's encephalopathy and normal pressure hydrocephalus. Therefore, we will attempt to obtain urine and patient will undergo CT imaging of the brain. If unremarkable, we will require physical therapy and case management consultation for placement. In discussion with [facility] staff who saw the patient over the last couple of days, he did ambulate into the facility with a cane, was unable to ambulate yesterday and experienced multiple episodes of urinary incontinence but prior to sending him for medical screening, he did ambulate under his own volition without assistance or difficulty later in the day. However, today he experience similar symptoms of and capability of walking with urinary incontinence. Bladder scan unremarkable at 80 mL. The patient has been able to ambulate using a walker without any difficulty or requiring any assistance. CT imaging of the brain unremarkable. The patient is medically clear for discharge back to psychiatric facility. Admission/Observation Consideration of admission/observation: Escalation of care including admission/observation considered Lab Data MDM Lab Attestation statement: I reviewed the patient's lab results. Labs reviewed and show a baseline anemia, no leukocytosis, baseline thrombocytopenia, alcoholic hepatitis pattern which is chronic, chronic mild hyponatremia, hypomagnesemia, no other gross abnormalities. 06/30/24 12:51 06/30/24 12:52 Labs: Lab Results 06/30/24 06/30/24 Range/Units 12:51 12:52 WBC 5.4 (4.8-10.8) X10*3/uL RBC 3.79 L (4.60-5.80) X10*6/uL Hgb 12.9 L (14.0-18.0) g/dl Hct 36.6 L (42.0-52.0) % MCV 96.6 (80.0-98.0) fL MCH 34.0 H (27.0-33.0) pg MCHC 35.2 (31.0-36.0) g/dl RDW 12.0 (11.0-16.0) % Plt Count 109 L D (160-400) X10*3/uL MPV 9.8 (9.4-12.4) fL Immature Gran % (Auto) 0.6 H (0.0-0.4) % Neut % (Auto) 62.6 (45-73) % Lymph % (Auto) 23.0 (20-40) % [place] % (Auto) 13.0 H (2-11) % Eos % (Auto) 0.4 (0-4) % Baso % (Auto) 0.4 (0-2) % Lymph # (Auto) 1.2 (1.2-4.9) X10*3/uL [place] # (Auto) 0.7 (0.1-1.2) X10*3/uL Eos # (Auto) 0.0 (0.0-0.4) X10*3/uL Baso # (Auto) 0.0 (0.0-0.2) X10*3/uL Abs Immat Gran (auto) 0.03 (0.00-0.03) X10*3/uL Absolute Neuts (auto) 3.4 (2.0-8.3) x10*3/uL Absolute Nucleated RBC 0.000 (0.0-0.012) X10*3/uL Nucleated RBC % (auto) 0.0 (0.0-0.2) /100WBC Sodium 131 L (135-145) mmol/L Potassium 3.7 (3.3-5.1) mmol/L Chloride 96 (96-108) mmol/L Carbon Dioxide 21 L (22-29) mmol/L Anion Gap 18 (12-20) BUN 8 L (9-16) mg/dL Creatinine 0.74 (0.5-1.4) mg/dL Estim Creat Clear Calc 96.8 Estimated GFR > 60 Random Glucose 120 H (60-115) mg/dL Calcium 9.3 (8.4-10.2) mg/dL Magnesium 1.5 L (1.6-2.6) mg/dL Total Bilirubin 1.7 H (0.0-1.0) mg/dL AST 125 H (5-37) U/L ALT 70 H (0-40) U/L Alkaline Phosphatase 178 H (39-117) U/L Troponin I High Sens 6.8 (<3.5-35.0) ng/L Total Protein 8.5 H (6.5-8.0) g/dL Albumin 4.0 (3.5-5.0) g/dL Independent Interpretation I performed an independent interpretation of an: EKG Interpretation: Normal sinus rhythm at 86 beats per minute, normal axis, unremarkable intervals, no diagnostic ST wave elevation or reciprocal changes, there is a nondiagnostic elevation in V3. Compared to prior dated 11/27/2020 there are no significant changes. Discharge Plan Discharge Clinical Impression: Difficulty in walking Patient Disposition: Xfer Psychiatric Hosp Instructions: Urinary Incontinence (ED) Additional Instructions: Medically clear with lab work and CT imaging, able to ambulate without assistance using a walker here. Return with any acute changes or concerns. Prescriptions: No Action (DME) blood-glucose meter [FreeStyle Lite Meter] Kit See Rx Instructions .Route Qty: 1 0RF Rx Instructions: As directed acetaminophen [Tylenol Arthritis Pain] 650 mg tablet extended release 650 mg PO Q8H PRN (Reason: pain) Qty: 90 0RF aspirin 81 mg tablet,delayed release (DR/EC) 81 mg PO DAILY Qty: 90 1RF (DME) Embrace TALK test strips Strip See Rx Instructions .ROUTE .COMPLEX Qty: 100 4RF Dose Instruction: USE TO TEST FINGER STICK BLOOD SUGAR ONCE DAILY Rx Instructions: USE TO TEST FINGER STICK BLOOD SUGAR ONCE DAILY escitalopram oxalate 20 mg tablet 20 mg PO DAILY Qty: 90 1RF Rx Instructions: Schedule next PCP appt for more refills folic acid 1 mg tablet 1 mg PO DAILY Qty: 90 1RF glipizide 10 mg tablet 10 mg PO DAILY Qty: 90 1RF (DME) lancets [Easy Comfort Lancets] 30 gauge misc See Rx Instructions .ROUTE .COMPLEX Qty: 100 1RF Dose Instruction: USE TO TEST FINGER STICK BLOOD SUGAR ONCE DAILY Rx Instructions: USE TO TEST FINGER STICK BLOOD SUGAR ONCE DAILY lisinopril 5 mg tablet 5 mg PO DAILY Qty: 90 1RF metformin 500 mg tablet 1,000 mg PO BID Qty: 360 1RF multivitamin Tablet 1 tab PO DAILY Qty: 90 1RF pioglitazone 45 mg tablet 45 mg PO DAILY Qty: 90 1RF simvastatin 10 mg tablet 10 mg PO BEDTIME Qty: 90 1RF thiamine HCl (vitamin B1) 100 mg tablet 50 mg PO DAILY Qty: 45 1RF (DME) blood-glucose meter [Rate Solutionsace TALK Glucose Monitor] Misc See Rx Instructions .Route Qty: 1 0RF Rx Instructions: As directed alcohol swabs [Alcohol Prep Pads] Pads, Medicated topical (DME) Knee Brace Large-XLarge Misc See Rx Instructions .Route Qty: 1 0RF Rx Instructions: use daily in left knee as directed acamprosate 333 mg tablet,delayed release (DR/EC) 333 mg PO BID Rx Instructions: administer with mid-day and evening meals quetiapine 25 mg tablet 25 mg PO BEDTIME Print Language: [place]
--- NOTE | 2024-06-30 12:30 | PC.NURSE ---
patient noted to be incontinent, equip tech got patient cleaned up. patient was max assist to stand, patient very unsteady. patient cleaned up and placed back in bed.
[2024-06-30] MEDS: Thiamine HCL 500 MG in 0.9 % Sodium Chloride 100 ML 210 MG IV (12:35)
[2024-06-30] MEDS: Lactated Ringers 1,000 ML 999 ML IV (12:36)
[2024-06-30] MEDS: Magnesium Oxide 400 MG TABLET PO (12:36)
[2024-06-30 12:58] LABS: MANUAL DIFF FLAG NO
[2024-06-30 13:01] LABS: Basophils Percent Auto 0.4 % (0-2); Eosinophils Percent Auto 0.4 % (0-4); Hematocrit 36.6 % (42.0-52.0); Hemoglobin 12.9 g/dl (14.0-18.0); Imm Gran Abs Auto 0.03 X10*3/uL (0.00-0.03); Imm Gran Pct Auto 0.6 % (0.0-0.4); Lymphocytes Absolute Auto 1.2 X10*3/uL (1.2-4.9); Mean Corpuscular HGB Conc 35.2 g/dl (31.0-36.0); Mean Corpuscular Volume 96.6 fL (80.0-98.0); Mean Platelet Volume 9.8 fL (9.4-12.4); Monocytes Absolute Auto 0.7 X10*3/uL (0.1-1.2); Neutrophils Absolute Auto 3.4 x10*3/uL (2.0-8.3); Neutrophils Percent Auto 62.6 % (45-73); Platelet Count 109 X10*3/uL (160-400); Red Blood Count 3.79 X10*6/uL (4.60-5.80); White Blood Count 5.4 X10*3/uL (4.8-10.8)
[2024-06-30 13:16] LABS: Alanine Aminotransferase 70 U/L (0-40); Alkaline Phosphatase 178 U/L (39-117); Anion Gap 18 (12-20); Aspartate Amino Transferase 125 U/L (5-37); Bilirubin Total 1.7 mg/dL (0.0-1.0); Blood Urea Nitrogen 8 mg/dL (9-16); Calcium 9.3 mg/dL (8.4-10.2); Carbon Dioxide 21 mmol/L (22-29); Chloride 96 mmol/L (96-108); Creatinine Clr Calc Pharmacy 96.8; Estimated Glomerular Filt Rate > 60; Glucose Random 120 mg/dL (60-115); Magnesium 1.5 mg/dL (1.6-2.6); Potassium 3.7 mmol/L (3.3-5.1); Sodium 131 mmol/L (135-145); Total Protein 8.5 g/dL (6.5-8.0)
[2024-06-30 13:39] LABS: Troponin-I High Sensitivity 6.8 ng/L (<3.5-35.0)
--- NOTE | 2024-06-30 14:06 | PC.NURSE ---
this RN talked to nurse at [address] Celestina states patient was a walk in admit on monday, patient presented to facility on own- walked in with cane. starting yesterday patient was unable to get out of bed and was incontinent on self, t get up patient was max assist- which nurse stated their facility does not have resources for. nurse states they called alternative education teacher provider to send patient to hospital for eval when patient ambulated himself to their nurses station. nurse then stated patient exhibited same symptoms today which then they decided to send patient out for further medical work up.
--- NOTE | 2024-06-30 15:18 | MHC.CM.ED ---
Addendum entered by Serene Mcnulty 06/30/24 15:46: Received notification from Care Team that patient came to ER from [facility] under section 21. Patient will return to [facility]. Care team consult cancelled. Original Note: Received case management consult from Dr Kwong. Patient self admitted to [facility] on Monday when he ambulated in with a cane. Patient was sent to the ER because he was having difficulty ambulating and was incontinent of urine. When patient was being sent to the ER, patient was able to ambulate. Patient is complaining of depression symptoms and difficulty ambulating. Physical therapy eval ordered. Not available until Monday. Patient will need to cleared from Care Team before rehab bed can be found. Care Team consult ordered by Dr Kwong. Continue to monitor for d/c needs.
--- NOTE | 2024-06-30 15:44 | PC.NURSE ---
patient licensed sales producer utilized for all interactions with patient- patient stood up after sitting on edge of bed max, standby assist. patient ambulated around ED with standby assist. patient bladder scanned 80ml in bladder after voiding. per ED provider patient is cleared to go back to [facility]
--- NOTE | 2024-06-30 17:03 | PC.NURSE ---
patient ambulated to bathroom with fiber technician
--- NOTE | 2024-06-30 17:13 | PC.NURSE ---
report given to nurse at [address]
== END 2024-06-30 17:28 ==
PROVIDERS: Emergency Provider Emergency Medicine
DX: R32 Unspecified urinary incontinence (principal); R26.2 Difficulty in walking, not elsewhere classified; R42 Dizziness and giddiness; I10 Essential (primary) hypertension; F17.210 Nicotine dependence, cigarettes, uncomplicated; E11.9 Type 2 diabetes mellitus without complications; Z79.84 Long term (current) use of oral hypoglycemic drugs; Z79.899 Other long term (current) drug therapy
CPT/HCPCS: 36415; 70450; 80053; 83735; 84484; 85025; 93005; 96361; 96365; 99283; 99284; J3411; J7120

== ENCOUNTER → 2024-06-30 11:08 | Outpatient (BNV) | payer MEDICARE, MEDICAID, SELFPAY | PROVIDERS: Emergency Provider Emergency Medicine; Visit Provider Internal Medicine Cardiovascular Disease | DX: R42 Dizziness and giddiness (principal) | CPT/HCPCS: 93010 ==

== ENCOUNTER → 2024-06-30 13:47 | Outpatient (BNV) | payer MEDICARE, MEDICAID, SELFPAY | PROVIDERS: Emergency Provider Emergency Medicine; Visit Provider Radiology Diagnostic Radiology | DX: I67.82 Cerebral ischemia (principal); R90.89 Other abnormal findings on diagnostic imaging of central nervous system; R53.1 Weakness | CPT/HCPCS: 70450 ==

== ENCOUNTER 2024-07-02 17:38 | Emergency (ER) | payer MEDICARE, MEDICAID, SELFPAY ==
--- NOTE | ~2024-07-02 | CT_ITS ---
CLINICAL HISTORY: Lower extremity weakness, ETOH use, R O subdural CT head without contrast Comparison: CT/SR - CT HEAD/BRAIN WO IV CON - 06/30/24 14:05 EST Findings: No intra-axial mass, midline shift, hydrocephalus, or acute hemorrhage. Moderate t atrophy-like change or white matter disease. No intraparenchymal or extra-axial hemorrhage/fluid collection. The visualized paranasal sinuses and mastoid air cells are normal. The orbits are within normal limits. No skull fracture. IMPRESSION: 1. No acute intracranial findings. 2. Moderate generalized cerebral volume loss and chronic microvascular ischemic changes. This document has been electronically signed by: Kimberly Frye MD on 07/02/2024 19:18:27
[2024-07-02 17:48] VITALS: BP 112/78; PULSE 97; O2SAT 95
[2024-07-02 17:57] VITALS: BP 109/73; PULSE 90; RESP 18; TEMP 37; O2SAT 98; BMI 26.3
--- NOTE | 2024-07-02 18:09 | ED.WEAKNESS ---
HPI - Weakness General Chief complaint: Weakness Stated complaint: neuromuscular dysfunction, assess less mobility? Time Seen by Provider: 07/02/24 17:48 Source: patient and EMS Mode of arrival: EMS Limitations: language barrier ([place] speaking only, [facility] [place] records clerk used) History of Present Illness ED Provider: Dr. Efrain Tadeo HPI Narrative: 59-year-old male with a history of memory deficits,noncompliance with medications, anemia, diabetes mellitus, alcohol use disorder, polyarthralgias, bipolar disorder, who was sent to the emergency department from [facility] for evaluation of lower extremity weakness and unable to walk. According to EMS, the patient has been at [facility] for proximally 2 weeks for treatment for his alcohol use disorder. The patient is not able to stand and walk and this has gotten progressively worse therefore he was sent to the emergency department for evaluation. The patient states that he has been experiencing weakness in his lower extremities for 2-3 months. He believes that the weakness is gotten worse over the past week. He denies pain or numbness in his lower extremities. He denies lower back pain. EMS reported that the patient did fall 1 week prior it is unclear if he had any head injury. Related Data Home Medications ?Medication ?Instructions ?Recorded ?Confirmed acamprosate 333 mg tablet,delayed 333 mg PO BID 01/05/23 07/02/24 release aspirin 81 mg chewable tablet 81 mg PO DAILY 07/02/24 07/02/24 calcium carbonate (Tums) 200 mg PO Q4H PRN Heartburn 07/02/24 07/02/24 clonidine HCl 0.1 mg tablet 0.1 mg PO TID PRN Alcohol 07/02/24 07/02/24 Withdrawal docusate sodium 100 mg capsule 100 mg PO BID PRN Constipation 07/02/24 07/02/24 (Colace) guaifenesin 600 mg tablet, 1,200 mg PO Q12H PRN Cough 07/02/24 07/02/24 extended release 12 hr hydroxyzine pamoate 50 mg capsule 50 mg PO Q4H PRN Anxiety 07/02/24 07/02/24 ibuprofen 400 mg tablet 400 mg PO Q8H PRN 07/02/24 07/02/24 TOOTHACHE/HEADACHE loperamide 2 mg capsule 2 mg PO Q4H PRN Loose Stool 07/02/24 07/02/24 lorazepam 1 mg tablet 1 mg PO Q2H PRN CIWA SCORE 10-14 07/02/24 07/02/24 lorazepam 1 mg tablet 2 mg PO Q1H PRN CIWA 15 OR GREATER 07/02/24 07/02/24 melatonin 3 mg tablet 3 mg PO BEDTIME PRN Insomnia 07/02/24 07/02/24 nicotine (polacrilex) 2 mg gum 2 mg buccal Q2H PRN Nicotine 07/02/24 07/02/24 Cravings nicotine 21 mg/24 hr daily 1 patch transdermal DAILY PRN 07/02/24 07/02/24 transdermal patch Nicotine Cravings ondansetron 4 mg disintegrating 4 mg PO Q6H PRN Nausea And Vomiting 07/02/24 07/02/24 tablet quetiapine 100 mg tablet 100 mg PO BEDTIME 07/02/24 07/02/24 thiamine HCl (vitamin B1) 100 mg 100 mg PO DAILY 07/02/24 07/02/24 tablet Previous Rx's ?Medication ?Instructions ?Recorded leg brace (Knee Brace Large-XLarge) #1 ea 01/25/21 blood-glucose meter (FreeStyle #1 ea 12/13/22 Lite Meter kit) blood sugar diagnostic (Embrace #100 strips 02/13/24 TALK test strips) escitalopram oxalate 20 mg tablet 20 mg PO DAILY #90 tabs 02/13/24 folic acid 1 mg tablet 1 mg PO DAILY #90 tabs 02/13/24 glipizide 10 mg tablet 10 mg PO DAILY #90 tabs 02/13/24 lancets 30 gauge (Easy Comfort #100 ea 02/13/24 Lancets) lisinopril 5 mg tablet 5 mg PO DAILY #90 tabs 02/13/24 metformin 500 mg tablet 1,000 mg (2 x 500 mg) PO BID #360 02/13/24 tabs multivitamin 1 tab PO DAILY #90 tabs 02/13/24 pioglitazone 45 mg tablet 45 mg PO DAILY #90 tabs 02/13/24 simvastatin 10 mg tablet 10 mg PO BEDTIME #90 tabs 02/13/24 blood-glucose meter (Embrace TALK #1 ea 04/17/24 Glucose Monitor) Allergies Allergy/AdvReac Type Severity Reaction Status Date / Time shellfish derived [shellfish] Allergy Unknown Verified 07/02/24 17:59 Review of Systems Review of Systems: Yes all other systems are reviewed and are negative [facility] Past Medical History [facility] Narrative: Social history: The patient states that he drinks 5 beers per day. He does smoke cigarettes. He denies drug use. Medical History (Updated 07/03/24 @ 16:08 by GEOFF Camacho) Anemia Diabetes mellitus, without long-term current use of insulin History of alcoholism Polyarthralgia Vitamin D deficiency Colonoscopy refused Knee pain, bilateral COVID-19 vaccination declined Smokes 1.5-2 packs of cigarettes per day Cigarette smoker motivated to quit Knee pain, chronic Essential hypertension Alcohol use disorder Bipolar 1 disorder Diabetes mellitus with hyperglycemia, without long-term current use of insulin Family History Family History Brother Mental health disorder Substance abuse Father Mental health disorder Mother Mental health disorder Social History Social History Housing: Apartment Alcohol intake: current Alcohol intake frequency: 3 or more drinks per day Alcohol type: hard liquor Patient Tobacco Use Status: Current everyday Tobacco user Tobacco use type: Cigarette Cigarette Packs Per Day: 1 Cigarettes Per Day: 20 Years Smoked: 35 Smoked in Last 30 Days: Yes e-Cigarette/Vaping Use: Never Used Second Hand Smoke Exposure: Yes Use of substances other than those prescribed or required for medical reasons: No Advance Directives: Yes Advance Directives on File: Yes Advance Directives Date on File: 08/08/22 Current occupational status: disabled Cognitive needs: No Hearing needs: No Vision needs: Yes Physical Exam Vital Signs: Vital Signs: Last Vital Signs Temp 98.6 F 07/03/24 12:48 Pulse 72 07/03/24 12:48 Resp 16 07/03/24 12:48 BP 121/82 07/03/24 12:48 Pulse Ox 100 07/03/24 12:48 O2 Del Method Room Air 07/03/24 12:48 BMI result Body Mass Index 26.3 Vital signs were normal Exam: General: Awake, alert in no distress Head: Normocephalic, atraumatic EENT: PERRL, Lids normal, sclera normal, conjunctiva normal, nose normal , ears normal, throat without erythema or exudates Neck: Supple, no adenopathy Lung: breath sounds symmetric, no wheezing, rales or rhonchi Chest: symmetric movement, nontender Heart: regular rate and rhythm, normal S1, S2 no murmurs or rubs Abdomen: soft, non-tender, nondistended, normal bowel sounds Back: no vertebral tenderness, no CVAT Extremities: no deformities, moves all extremities symmetrically Neuro: General: Awake, alert, oriented to person, normal speech Cranial nerves: Cranial nerves intact Strength: Upper extremities: Patient can hold his upper extremities against gravity with good strength, face and fill packer strength is normal Lower extremities: Patient can hold both lower extremities up against gravity but has 3/5 slightly worse in the right lower extremity than the left lower extremity, normal ankle strength, able to lift his great toes with good strength. Gait: The patient was not able to stand at the side of the he was bed secondary to his weakness. Reflexes: 1+ in the upper extremities, unobtainable in the lower extremities Psych: Pleasant, cooperative Course Course Course Narrative: Stephanie Mejia PA-C 07/03/2024 0800 ---> Patient continues to be followed by CARE and Case Management teams. There seems to be confusion on why [facility] continues to send the patient here for difficulty ambulating when this is the patient's baseline. CARE team is investigating. PT recommends walker use for the patient. Medications Administered Discontinued Medications Generic Name Dose Route Start Last Admin Trade Name Chely PRN Reason Stop Dose Admin Folic Acid 1 mg 07/02/24 20:36 07/02/24 21:49 Folic Acid 1 Mg Tablet PO 07/02/24 20:37 1 mg ONCE ONE Administration Magnesium Sulfate 2 gm in 50 mls @ 25 mls/hr 07/02/24 20:35 07/03/24 00:49 Magnesium Sulfate/H2o IV 07/02/24 22:34 Infused ONCE ONE Infusion Thiamine HCl 100 mg 07/02/24 20:36 07/02/24 21:49 Thiamine Hcl 100 Mg Tablet PO 07/02/24 20:37 100 mg ONCE ONE Administration Medical Decision Making Medical Decision Making [facility] Narrative: 59-year-old male with a history of memory deficits,noncompliance with medications, anemia, diabetes mellitus, alcohol use disorder, polyarthralgias, bipolar disorder, who was sent to the emergency department from [facility] for evaluation of lower extremity weakness and unable to walk. According to EMS, the patient has been at [facility] for proximally 2 weeks for treatment for his alcohol use disorder. Patient states he was had weakness for 2-3 months but does believe that he was gotten worse to the point where he was unable to walk. Examination revealed normal upper extremity strength but 3/5 lower extremity strength with inability to stand or walk secondary to weakness. Differential diagnosis: ?Includes but is not limited to muscle weakness secondary to deconditioning, alcoholic myopathy, diabetic myopathy, vitamin deficiencies, rhabdomyolysis, electrolyte abnormalities, anemia Course: My interpretation patient's laboratory evaluation is as follows: Normocytic anemia with an H&H of 11.8 and 33.7 with an MCV of 97.4-this is chronic. PTT was normal. Sodium low 134. Chloride low 95. Serum bicarb low at 32. BUN creatinine were normal. Glucose elevated 203. Magnesium low 1.3. AST, ALT and alk-phos were elevated 98, 73, 172 with a normal bilirubin. CK was normal. CRP was normal. ESR was normal. Vitamin B12 was high 1172. Folic acid was normal. TSH was normal. Ethanol level was below detectable limits. CT of the head revealed no acute findings to explain the patient's lower extremity weakness. 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 The patient was not able to stand and walk therefore he can not be sent back to [facility]. The patient was not on a [address] and was at [facility] for his alcohol use disorder and detox treatment. I did order a case management and physical therapy consult. Patient will remain in the emergency department until disposition can be determined or until patient's symptoms improve over time. Lab Data 07/02/24 18:31 07/02/24 18:31 Labs: Lab Results 07/02/24 07/02/24 Range/Units 18:31 21:29 WBC 6.1 (4.8-10.8) X10*3/uL RBC 3.46 L (4.60-5.80) X10*6/uL Hgb 11.8 L (14.0-18.0) g/dl Hct 33.7 L (42.0-52.0) % MCV 97.4 (80.0-98.0) fL MCH 34.1 H (27.0-33.0) pg MCHC 35.0 (31.0-36.0) g/dl RDW 12.1 (11.0-16.0) % Plt Count 125 L (160-400) X10*3/uL MPV 10.0 (9.4-12.4) fL Immature Gran % (Auto) Cancelled Neut % (Auto) Cancelled Lymph % (Auto) Cancelled [place] % (Auto) Cancelled Eos % (Auto) Cancelled Baso % (Auto) Cancelled Lymph # (Auto) Cancelled [place] # (Auto) Cancelled Eos # (Auto) Cancelled Baso # (Auto) Cancelled Abs Immat Gran (auto) Cancelled Absolute Neuts (auto) Cancelled Absolute Nucleated RBC 0.000 (0.0-0.012) X10*3/uL Nucleated RBC % (auto) 0.0 (0.0-0.2) /100WBC Neutrophils % (Manual) 65 (45-73) % Band Neutrophils % 0 L (3-5) % Lymphocytes % (Manual) 24 (20-40) % Monocytes % (Manual) 8 (2-11) % Eosinophils % (Manual) 2 (0-4) % Basophils % (Manual) 1 (0-2) % Abs Neuts (Manual) 4.0 (2.0-8.3) X10*3/uL Lymphocytes # (Manual) 1.5 (1.2-4.9) X10*3/uL Monocytes # (Manual) 0.5 (0.1-1.2) X10*3/uL Eosinophils # (Manual) 0.1 (0.0-0.4) X10*3/uL Basophils # (Manual) 0.1 (0.0-0.2) X10*3/uL Platelet Estimate SLIGHTLY DECREASED (NORMAL) Plt Morphology Comment NORMAL RBC Morphology NORMAL ESR 11 (0-15) MM/HR APTT 28.6 (26.0-36.8) SEC Sodium 134 L (135-145) mmol/L Potassium 3.6 (3.3-5.1) mmol/L Chloride 95 L (96-108) mmol/L Carbon Dioxide 32 H (22-29) mmol/L Anion Gap 11 L (12-20) BUN 14 (9-16) mg/dL Creatinine 0.80 (0.5-1.4) mg/dL Estim Creat Clear Calc 88.6 Estimated GFR > 60 Random Glucose 203 H (60-115) mg/dL Calcium 8.9 (8.4-10.2) mg/dL Magnesium 1.3 L* (1.6-2.6) mg/dL Total Bilirubin 0.8 (0.0-1.0) mg/dL AST 98 H (5-37) U/L ALT 73 H (0-40) U/L Alkaline Phosphatase 172 H (39-117) U/L Total Creatine Kinase 58 (38-174) U/L C-Reactive Protein < 0.04 (< or = 0.50) mg/dL Total Protein 7.1 (6.5-8.0) g/dL Albumin 3.5 (3.5-5.0) g/dL Lipase 64 (8-78) U/L Vitamin B12 1172 H (200-900) pg/mL Folate 14.8 (> or = 4.0) ng/mL TSH 3.77 (0.32-4.0) uIU/mL Urine Opiates Screen Not Detected (Not Detect) Ur Buprenorphine Scrn Not Detected (Not Detect) ng/mL Ur Oxycodone Screen Not Detected (Not Detect) ng/mL Urine Methadone Screen Not Detected (Not Detect) ng/mL Urine Fentanyl Screen Not Detected (Not Detect) Ur Barbiturates Screen Not Detected (Not Detect) Ur Phencyclidine Scrn Not Detected (Not Detect) Ur Amphetamines Screen Not Detected (Not Detect) U Benzodiazepines Scrn Not Detected (Not Detect) Urine Cocaine Screen Not Detected (Not Detect) U Marijuana (THC) Screen Not Detected (Not Detect) Ethyl Alcohol < 10 mg/dL Influenza Type A (PCR) NEGATIVE (Negative) Influenza Type B (PCR) NEGATIVE (Negative) RSV RNA Qual (PCR) NEGATIVE (Negative) SARS-CoV-2 RNA (RT-PCR) NEGATIVE (Negative) Discharge Plan Discharge Clinical Impression: Difficulty in walking Prescriptions: No Action (DME) blood-glucose meter [FreeStyle Lite Meter] Kit See Rx Instructions .Route Qty: 1 0RF Rx Instructions: As directed (DME) Embrace TALK test strips Strip See Rx Instructions .ROUTE .COMPLEX Qty: 100 4RF Dose Instruction: USE TO TEST FINGER STICK BLOOD SUGAR ONCE DAILY Rx Instructions: USE TO TEST FINGER STICK BLOOD SUGAR ONCE DAILY escitalopram oxalate 20 mg tablet 20 mg PO DAILY Qty: 90 1RF Rx Instructions: Schedule next PCP appt for more refills folic acid 1 mg tablet 1 mg PO DAILY Qty: 90 1RF glipizide 10 mg tablet 10 mg PO DAILY Qty: 90 1RF (DME) lancets [Easy Comfort Lancets] 30 gauge misc See Rx Instructions .ROUTE .COMPLEX Qty: 100 1RF Dose Instruction: USE TO TEST FINGER STICK BLOOD SUGAR ONCE DAILY Rx Instructions: USE TO TEST FINGER STICK BLOOD SUGAR ONCE DAILY lisinopril 5 mg tablet 5 mg PO DAILY Qty: 90 1RF metformin 500 mg tablet 1,000 mg PO BID Qty: 360 1RF multivitamin Tablet 1 tab PO DAILY Qty: 90 1RF pioglitazone 45 mg tablet 45 mg PO DAILY Qty: 90 1RF simvastatin 10 mg tablet 10 mg PO BEDTIME Qty: 90 1RF (DME) blood-glucose meter [[employer] TALK Glucose Monitor] Misc See Rx Instructions .Route Qty: 1 0RF Rx Instructions: As directed clonidine HCl 0.1 mg Tablet 0.1 mg PO TID PRN (Reason: Alcohol Withdrawal) Rx Instructions: HOLD FOR BP < 110/60 loperamide 2 mg Capsule 2 mg PO Q4H PRN (Reason: Loose Stool) Rx Instructions: MAX 16 MG/24 HRS nicotine (polacrilex) 2 mg Gum 2 mg buccal Q2H PRN (Reason: Nicotine Cravings) hydroxyzine pamoate 50 mg Capsule 50 mg PO Q4H PRN (Reason: Anxiety) melatonin 3 mg Tablet 3 mg PO BEDTIME PRN (Reason: Insomnia) calcium carbonate [Tums] 200 mg calcium (500 mg) Tablet,Chewable 200 mg PO Q4H PRN (Reason: Heartburn) ibuprofen 400 mg Tablet 400 mg PO Q8H PRN (Reason: TOOTHACHE/HEADACHE) nicotine 21 mg/24 hr Patch 24 Hour 1 patch TRANSDERMAL DAILY PRN (Reason: Nicotine Cravings) docusate sodium [Colace] 100 mg Capsule 100 mg PO BID PRN (Reason: Constipation) aspirin 81 mg Tablet,Chewable 81 mg PO DAILY lorazepam 1 mg Tablet 2 mg PO Q1H PRN (Reason: CIWA 15 OR GREATER) lorazepam 1 mg Tablet 1 mg PO Q2H PRN (Reason: CIWA SCORE 10-14) ondansetron 4 mg Tablet,Disintegrating 4 mg PO Q6H PRN (Reason: Nausea And Vomiting) guaifenesin 600 mg Tablet Extended Release 12hr 1,200 mg PO Q12H PRN (Reason: Cough) thiamine HCl (vitamin B1) 100 mg tablet 100 mg PO DAILY quetiapine 100 mg Tablet 100 mg PO BEDTIME (DME) Knee Brace Large-XLarge Misc See Rx Instructions .Route Qty: 1 0RF Rx Instructions: use daily in left knee as directed acamprosate 333 mg tablet,delayed release (DR/EC) 333 mg PO BID Rx Instructions: administer with mid-day and evening meals Print Language: [place]
[2024-07-02 18:33] VITALS: BP 126/83; PULSE 86; RESP 14; TEMP 36.7; O2SAT 98
[2024-07-02 18:47] LABS: Hematocrit 33.7 % (42.0-52.0); Hemoglobin 11.8 g/dl (14.0-18.0); Mean Corpuscular Hemoglobin 34.1 pg (27.0-33.0); Mean Corpuscular Volume 97.4 fL (80.0-98.0); Platelet Count 125 X10*3/uL (160-400); Red Blood Count 3.46 X10*6/uL (4.60-5.80); Red Cell Distribution Width 12.1 % (11.0-16.0); White Blood Count 6.1 X10*3/uL (4.8-10.8)
[2024-07-02 18:50] LABS: Partial Thromboplastin Time 28.6 SEC (26.0-36.8)
[2024-07-02 19:07] LABS: Alanine Aminotransferase 73 U/L (0-40); Albumin Level 3.5 g/dL (3.5-5.0); Alkaline Phosphatase 172 U/L (39-117); Anion Gap 11 (12-20); Aspartate Amino Transferase 98 U/L (5-37); Bilirubin Total 0.8 mg/dL (0.0-1.0); Blood Urea Nitrogen 14 mg/dL (9-16); C Reactive Protein < 0.04 mg/dL (< or = 0.50); Calcium 8.9 mg/dL (8.4-10.2); Carbon Dioxide 32 mmol/L (22-29); Chloride 95 mmol/L (96-108); Creatinine Clr Calc Pharmacy 88.6; Estimated Glomerular Filt Rate > 60; Ethanol < 10 mg/dL; Glucose Random 203 mg/dL (60-115); Lipase 64 U/L (8-78); Magnesium 1.3 mg/dL (1.6-2.6); Potassium 3.6 mmol/L (3.3-5.1); Sodium 134 mmol/L (135-145); Total Protein 7.1 g/dL (6.5-8.0)
[2024-07-02 19:09] LABS: TSH reflex Free T4 3.77 uIU/mL (0.32-4.0)
[2024-07-02 19:23] LABS: Band Neutrophils Percent 0 % (3-5); Basophils Abs Manual 0.1 X10*3/uL (0.0-0.2); Basophils Percent Manual 1 % (0-2); Eosinophils Absolute Manual 0.1 X10*3/uL (0.0-0.4); Eosinophils Percent Manual 2 % (0-4); Folate 14.8 ng/mL (> or = 4.0); Lymphocytes Absolute Manual 1.5 X10*3/uL (1.2-4.9); Lymphocytes Percent Manual 24 % (20-40); Monocytes Absolute Manual 0.5 X10*3/uL (0.1-1.2); Monocytes Percent Manual 8 % (2-11); Neutrophils Percent Manual 65 % (45-73); Vitamin B12 1172 pg/mL (200-900)
[2024-07-02 19:25] LABS: Platelet Estimate SLIGHTLY DECREASED (NORMAL); Platelet Morphology Comment NORMAL; RBC Morphology NORMAL
[2024-07-02 19:32] LABS: Erythrocyte Sedimentation Rate 11 MM/HR (0-15)
[2024-07-02 20:00] VITALS: RESP 12
--- OUTSIDE RECORDS SUMMARY | 2024-07-02 20:31 | XMS_ITS | Clinical Summary ---
Author Organization Unknown Care Team Providers Care Glass Grinder Name Role Phone MIKAYLA AG, MIRYAM JENNINGS Unavailable Unavailceferino HEARN RN, HAILEY Epps Unavailable TALHA METZ, STEFAN Unavailable Unavailable Payers Payer Name Policy Type Policy Number Effective Date Expira tion Date ON DEMAND MEDICARE - [place] BILLING - AB[place] [id number] [place] [id number] Problems Condition Name Condition Details Condition Category Status Onset Date Resolution Date Last Treatment Date Treating Clinician Comments TYPE 2 DIABETES MELLITUS WITH HYPERGLYCEMI A Active 2023-05 00:00: 00 BIPOLAR DISORDER, UNSPECIFIED Active 2023-05 00:00: 00 ESSENTIAL (PRIMARY) HYPERTENSION Active 2023-05 00:00: 00 NICOTINE DEPENDENCE, CIGARETTES, UNCOMPLICATE D Active 2023-05 00:00: 00 IMMUNIZATION NOT CARRIED OUT BECAUSE OF PATIENT REFUSAL Active 2023-05 00:00: 00 PAIN IN UNSPECIFIED JOINT Active 2023-05 00:00: 00 Patient's other noncompl with meds regimen for other reason Active 2023-05 00:00: 00 Allergies, Adverse Reactions, Alerts Allergy Name Allergy Type Status Severity Reaction(s) Onset Date Inactive Date Treating Clinician Comments NKA Propensity to adverse reactions Active 2024-03 08:40:2 9 Medications Ordered Medication Name Filled Medication Name Start Date Stop Date Current Medication? Ordering Clinician Indication Dosage Frequency Signature (SIG) Comments Components acamprosate 333 mg tablet,coty yed release 2023-05 00:00: 00 Yes [id number] 1 tablet 2 TIMES DAILY 1 tablet 2 TIMES DAILY (route: oral) Med Classific ation: Chemical Dependenc y, Agents to Treat acetaminoph en 325 mg capsule 2023-05 00:00: 00 Yes [id number] 2 capsule 3 TIMES DAILY 2 capsule 3 TIMES DAILY (route: oral) Med Classific ation: Analgesic , Anti-infl ammatory or Antipyret ic escitalopra m 20 mg tablet 2023-05 00:00: 00 Yes [id number] 1 tablet EVERY AM 1 tablet EVERY AM (route: oral) Med Classific ation: Central Nervous System Agents folic acid 1 mg tablet 2023-05 00:00: 00 Yes [id number] 1 tablet EVERY AM 1 tablet EVERY AM (route: oral) Med Classific ation: Electroly te Balance-N utritiona l Products glipizide 10 mg tablet 2023-05 00:00: 00 Yes [id number] 1 tablet EVERY AM 1 tablet EVERY AM (route: oral) Med Classific ation: Endocrine lisinopril 5 mg tablet 2023-05 00:00: 00 Yes [id number] 1 tablet EVERY AM 1 tablet EVERY AM (route: oral) Med Classific ation: Cardiovas cular Therapy Agents metformin 500 mg tablet 2023-05 00:00: 00 Yes [id number] 2 tablet EVERY AM 2 tablet EVERY AM (route: oral) Med Classific ation: Endocrine Multivitami n 50 Plus tablet 2023-05 00:00: 00 Yes [id number] 1 tablet EVERY AM 1 tablet EVERY AM (route: oral) Med Classific ation: Electroly te Balance-N utritiona l Products pioglitazon e 45 mg tablet 2023-05 00:00: 00 Yes [id number] 1 tablet EVERY AM 1 tablet EVERY AM (route: oral) Med Classific ation: Endocrine quetiapine 25 mg tablet 2023-05 00:00: 00 Yes [id number] 1 tablet BEDTIME 1 tablet BEDTIME (route: oral) Med Classific ation: Central Nervous System Agents simvastatin 10 mg tablet 2023-05 00:00: 00 Yes [id number] 1 tablet EVERY PM 1 tablet EVERY PM (route: oral) Med Classific ation: Cardiovas cular Therapy Agents thiamine HCl (vitamin B1) 50 mg tablet 2023-05 00:00: 00 Yes [id number] 1 tablet EVERY AM 1 tablet EVERY AM (route: oral) Med Classific ation: Electroly te Balance-N utritiona l Products Vital Signs Vital Name Observation Time Observation Value Commen ts Temperature 2024-06-24 11:04:00.000 97.2 [degF] Temperature 2024-06-17 12:00:00.000 97.2 [degF] Temperature 2024-06-14 11:25:00.000 98.3 [degF] Temperature 2024-06-12 10:55:00.000 96.9 [degF] Temperature 2024-06-10 11:47:00.000 96.9 [degF] Temperature 2024-06-07 12:45:00.000 96.8 [degF] Temperature 2024-06-05 12:28:00.000 96.7 [degF] Temperature 2024-06-03 12:10:00.000 97.6 [degF] Pulse 2024-06-24 11:04:00.000 100 /min Pulse 2024-06-19 13:05:00.000 75 /min Pulse 2024-06-17 12:00:00.000 76 /min Pulse 2024-06-14 11:25:00.000 76 /min Pulse 2024-06-12 10:55:00.000 76 /min Pulse 2024-06-10 11:47:00.000 88 /min Pulse 2024-06-07 12:45:00.000 76 /min Pulse 2024-06-05 12:28:00.000 90 /min Pulse 2024-06-03 12:10:00.000 72 /min O2 Saturation (%) 2024-06-24 11:04:00.000 94 % Respirations 2024-06-24 11:04:00.000 20 /min Respirations 2024-06-19 13:05:00.000 16 /min Respirations 2024-06-17 12:00:00.000 16 /min Respirations 2024-06-14 11:25:00.000 16 /min Respirations 2024-06-12 10:55:00.000 16 /min Respirations 2024-06-10 11:47:00.000 16 /min Respirations 2024-06-07 12:45:00.000 16 /min Respirations 2024-06-05 12:28:00.000 16 /min Respirations 2024-06-03 12:10:00.000 16 /min Systolic Blood Pressure 2024-06-24 11:04:00.000 100 mm [Hg] Systolic Blood Pressure 2024-06-19 13:05:00.000 132 mm [Hg] Systolic Blood Pressure 2024-06-17 12:00:00.000 136 mm [Hg] Systolic Blood Pressure 2024-06-14 11:25:00.000 136 mm [Hg] Systolic Blood Pressure 2024-06-12 10:55:00.000 122 mm [Hg] Systolic Blood Pressure 2024-06-10 11:47:00.000 128 mm [Hg] Systolic Blood Pressure 2024-06-07 12:45:00.000 136 mm [Hg] Systolic Blood Pressure 2024-06-05 12:28:00.000 138 mm [Hg] Systolic Blood Pressure 2024-06-03 12:10:00.000 132 mm [Hg] Diastolic Blood Pressure 2024-06-24 11:04:00.000 58 mm [Hg] Diastolic Blood Pressure 2024-06-19 13:05:00.000 70 mm [Hg] Diastolic Blood Pressure 2024-06-17 12:00:00.000 78 mm [Hg] Diastolic Blood Pressure 2024-06-14 11:25:00.000 78 mm [Hg] Diastolic Blood Pressure 2024-06-12 10:55:00.000 74 mm [Hg] Diastolic Blood Pressure 2024-06-10 11:47:00.000 86 mm [Hg] Diastolic Blood Pressure 2024-06-07 12:45:00.000 80 mm [Hg] Diastolic Blood Pressure 2024-06-05 12:28:00.000 80 mm [Hg] Diastolic Blood Pressure 2024-06-03 12:10:00.000 80 mm [Hg] Plan of Treatment Planned Activity Planned Date Details Comments Future Scheduled Test SKILLED NU RSE TO EVALUATE PATIENT, IDENTIFY PRIMARY AND CO-MORBID CONDITIONS CODED PER CODING GUIDELINES, AND DEVELOP PATIENT SPECIFIC PLAN OF CARE THAT INCLUDES PATIENT GOAL FOR HOME HEALTH. [code = SKILLED NURSE TO EVALUATE PATIENT, IDENTIFY PRIMARY AND CO-MORBID CONDITIONS CODED PER CODING GUIDELINES, AND DEVELOP PATIENT SPECIFIC PLAN OF CARE THAT INCLUDES PATIENT GOAL FOR HOME HEALTH.] Future Scheduled Test SKILLED NU RSE TO O/A OF PATIENTS MENTAL/BEHAVIORAL STATUS, ASSESS VITAL SIGNS WEEKLY, ALLOW 2 PRNS FOR MEDICATION MANAGEMENT. [code = SKILLED NURSE TO O/A OF PATIENTS MENTAL/BEHAVIORAL STATUS, ASSESS VITAL SIGNS WEEKLY, ALLOW 2 PRNS FOR MEDICATION MANAGEMENT.] Future Scheduled Test SKILLED NU RSE TO REVIEW PATIENT MEDICATIONS. INSTRUCT PATIENT/CAREGIVER ON MONITORING OF EFFECTIVENESS, ADVERSE DRUG REACTIONS, SIDE EFFECTS OF ALL MEDICATIONS (PRESCRIPTION/-OTC), AND HOW AND WHEN TO REPORT PROBLEMS. [code = SKILLED NURSE TO REVIEW PATIENT MEDICATIONS. INSTRUCT PATIENT/CAREGIVER ON MONITORING OF EFFECTIVENESS, ADVERSE DRUG REACTIONS, SIDE EFFECTS OF ALL MEDICATIONS (PRESCRIPTION/-OTC), AND HOW AND WHEN TO REPORT PROBLEMS.] Future Scheduled Test SKILLED NU RSE TO PRE-POUR MEDICATION PER MEDICATION LIST 3 X WEEKLY. [code = SKILLED NURSE TO PRE-POUR MEDICATION PER MEDICATION LIST 3 X WEEKLY.] Future Scheduled Test PATIENT MA Y HAVE ONE SET OF EMERGENCY MEDICATION NOT TO BE PRE-POURED ANY SOONER THAN 24 HOURS BEFORE SEVERE INCLEMENT WEATHER OR EMERGENT EVENT AND FOLLOWING SKILLED NURSE EVALUATION OF PATIENT SAFETY. [code = PATIENT MAY HAVE ONE SET OF EMERGENCY MEDICATION NOT TO BE PRE-POURED ANY SOONER THAN 24 HOURS BEFORE SEVERE INCLEMENT WEATHER OR EMERGENT EVENT AND FOLLOWING SKILLED NURSE EVALUATION OF PATIENT SAFETY.] Future Scheduled Test SKILLED NU RSE FOR O/A AND SKILLED TEACHING OF COPING SKILLS TO MANAGE ANXIETY AND MAINTAIN SAFETY. [code = SKILLED NURSE FOR O/A AND SKILLED TEACHING OF COPING SKILLS TO MANAGE ANXIETY AND MAINTAIN SAFETY.] Future Scheduled Test SKILLED NU RSE FOR O/A AND TEACHING OF DIABETIC MANAGEMENT INCLUDING BLOOD SUGAR MONITORING/USE OF GLUCOMETER, DIABETIC DIET, LOWER EXTREMITY SKIN INSPECTION, PROPER SKIN/FOOT CARE, AND SIGNS AND SYMPTOMS HYPO/HYPERGLYCEMIA TO REPORT. [code = SKILLED NURSE FOR O/A AND TEACHING OF DIABETIC MANAGEMENT INCLUDING BLOOD SUGAR MONITORING/USE OF GLUCOMETER, DIABETIC DIET, LOWER EXTREMITY SKIN INSPECTION, PROPER SKIN/FOOT CARE, AND SIGNS AND SYMPTOMS HYPO/HYPERGLYCEMIA TO REPORT.] Future Scheduled Test SKILLED NU RSE TO PERFORM AND RECORD BLOOD SUGAR READING WEEKLY , AND PRN FOR SIGNS AND SYMPTOMS OF HYPO/HYPERGLYCEMIA. [code = SKILLED NURSE TO PERFORM AND RECORD BLOOD SUGAR READING WEEKLY , AND PRN FOR SIGNS AND SYMPTOMS OF HYPO/HYPERGLYCEMIA.] Future Scheduled Test SKILLED NU RSE FOR O/A OF ALTERED MOOD [code = SKILLED NURSE FOR O/A OF ALTERED MOOD] Future Scheduled Test SKILLED NU RSE WILL MAINTAIN SITUATIONAL AWARENESS FOR SAFETY AND WILL NOTIFY CLINICAL TUBE BUFFER AND PHYSICIAN/PROVIDER WITH ANY CHANGE IN CONDITION. [code = SKILLED NURSE WILL MAINTAIN SITUATIONAL AWARENESS FOR SAFETY AND WILL NOTIFY CLINICAL TUBE BUFFER AND PHYSICIAN/PROVIDER WITH ANY CHANGE IN CONDITION.] Future Scheduled Test SKILLED NU RSE TO ASSESS PATIENTS PSYCHOSOCIAL STATUS TO IDENTIFY POTENTIAL ISSUES THAT MAY COMPLICATE THE PROVISION OF THE PLAN OF CARE INCLUDING THE PATIENTS ABILITY TO ACCESS COMMUNITY RESOURCES AND PSYCHOSOCIAL SUPPORT SERVICES. [code = SKILLED NURSE TO ASSESS PATIENTS PSYCHOSOCIAL STATUS TO IDENTIFY POTENTIAL ISSUES THAT MAY COMPLICATE THE PROVISION OF THE PLAN OF CARE INCLUDING THE PATIENTS ABILITY TO ACCESS COMMUNITY RESOURCES AND PSYCHOSOCIAL SUPPORT SERVICES.] Goal 2024-05-29 Patient Goal - P ATIENT VERBALIZED GOAL OF FEELING BETTER Goal Patient Goal - P ATIENT SAYS WANTS TO FEELING GOOD AND HAVE HIS OWN APARTMENT Goal Provider Goal - A PLAN OF CARE WILL BE ESTABLISHED THAT MEETS PATIENT'S PRISON NEEDS AND INCLUDES PATIENT GOAL FOR HOME HEALTH. Goal Provider Goal - ALTERED MENTAL/BEHAVIORAL STATUS WILL BE IDENTIFIED PROMPTLY AND INTERVENTION INITIATED QUICKLY TO MINIMIZE ASSOCIATED RISKS THROUGHOUT CERTIFICATION PERIOD. Goal Provider Goal - PATIENT/CAREGIVER WILL VERBALIZE UNDERSTANDING OF EDUCATION PROVIDED ON MEDICATIONS BY THE END OF THE CERTIFICATION PERIOD. Goal Provider Goal - PATIENT WILL COMPLY WITH MEDICATION WHEN SKILLED NURSE PRE-POURS MEDICATION THROUGHOUT CERTIFICATION PERIOD. Goal Provider Goal - MEDICATION WILL BE AVAILABLE DURING INCLEMENT WEATHER OR EMERGENT EVENT THROUGHOUT CERTIFICATION PERIOD. Goal Provider Goal - PATIENT WILL BE ABLE TO PERFORM DAILY FUNCTIONS AND HAVE OPTIMAL IMPROVEMENT IN LEVEL OF ANXIETY THROUGHOUT CERTIFICATION PERIOD. Goal Provider Goal - PATIENT/CAREGIVER WILL VERBALIZE/DEMONSTRATE KNOWLEDGE OF DIABETIC MANAGEMENT. CHANGES IN DIABETIC STATUS WILL BE IDENTIFIED AND REPORTED TO PHYSICIAN FOR PROMPT INTERVENTION THROUGHOUT THE CERTIFICATION PERIOD. Goal Provider Goal - BLOOD SUGAR READING WILL BE OBTAINED ORDERED THROUGHOUT CERTIFICATION PERIOD. Goal Provider Goal - PATIENT WILL BE ABLE TO PERFORM DAILY FUNCTIONS AND HAVE OPTIMAL IMPROVEMENT IN MOOD STABILITY THROUGHOUT CERTIFICATION PERIOD. Goal Provider Goal - PATIENT WILL REMAIN SAFE IN THE COMMUNITY AND WILL BE FREE OF DANGER TO SELF AND OTHERS THROUGHOUT THE CERTIFICATION PERIOD. Goal Provider Goal - PSYCHOSOCIAL NEEDS WILL BE IDENTIFIED AND PLAN IMPLEMENTED TO MINIMIZE RISK THROUGHOUT CERTIFICATION PERIOD. Encounters Start Date/Time End Date/Time Encounter Type Admission Type Attending Clinicians Care Facility Care Department Encounter ID Discharge Date Discharge Status Discharge Condition Discharge Reason Percent Goals Met 2024-04-04 00:00:00 2024-08-01 00:00:00 Outpatient RECERTIFIC ATION STEFAN PALENCIA [facility] [id number] 5.00
--- OUTSIDE RECORDS SUMMARY | 2024-07-02 20:31 | XMS_ITS | Clinical Summary ---
Author Organization Unknown Care Team Providers Care Business Center Manager Name Role Phone MIKAYLA AG, MIRYAM JENNINGS Unavailable Unavailceferino HEARN RN, HAILEY Epps Unavailable TALHA METZ, STEFAN Unavailable Unavailable Payers Payer Name Policy Type Policy Number Effective Date Expira tion Date ON DEMAND MEDICARE - [place] [id number] [place] [id number] Problems Condition Name Condition Details Condition Category [...] tablet,coty yed release 2023-05 00:00: 00 Yes [id number] 1 tablet 2 TIMES DAILY 1 tablet 2 TIMES DAILY (route: oral) Med Classific ation: Chemical Dependenc y, Agents to Treat acetaminoph en 325 mg capsule 2023-05 00:00: 00 Yes [id number] 2 capsule 3 TIMES DAILY 2 capsule 3 TIMES DAILY (route: oral) Med Classific ation: Analgesic , Anti-infl ammatory or Antipyret ic escitalopra m 20 mg tablet 2023-05 00:00: 00 Yes [id number] 1 tablet EVERY AM 1 tablet EVERY AM (route: oral) Med Classific ation: Central Nervous System Agents folic acid 1 mg tablet 2023-05 00:00: 00 Yes [id number] 1 tablet EVERY AM 1 tablet EVERY AM (route: oral) Med Classific ation: Electroly te Balance-N utritiona l Products glipizide 10 mg tablet 2023-05 00:00: 00 Yes [id number] 1 tablet EVERY AM 1 tablet EVERY AM (route: oral) Med Classific ation: Endocrine lisinopril 5 mg tablet 2023-05 00:00: 00 Yes [id number] 1 tablet EVERY AM 1 tablet EVERY AM (route: oral) Med Classific ation: Cardiovas cular Therapy Agents metformin 500 mg tablet 2023-05 00:00: 00 Yes [id number] 2 tablet EVERY AM 2 tablet EVERY AM (route: oral) Med Classific ation: Endocrine Multivitami n 50 Plus tablet 2023-05 00:00: 00 Yes [id number] 1 tablet EVERY AM 1 tablet EVERY AM (route: oral) Med Classific ation: Electroly te Balance-N utritiona l Products pioglitazon e 45 mg tablet 2023-05 00:00: 00 Yes [id number] 1 tablet EVERY AM 1 tablet EVERY AM (route: oral) Med Classific ation: Endocrine quetiapine 25 mg tablet 2023-05 00:00: 00 Yes [id number] 1 tablet BEDTIME 1 tablet BEDTIME (route: oral) Med Classific ation: Central Nervous System Agents simvastatin 10 mg tablet 2023-05 00:00: 00 Yes [id number] 1 tablet EVERY PM 1 tablet EVERY PM (route: oral) Med Classific ation: Cardiovas cular Therapy Agents thiamine HCl (vitamin B1) 50 mg tablet 2023-05 00:00: 00 Yes [id number] 1 tablet EVERY AM 1 tablet EVERY [...] AWARENESS FOR SAFETY AND WILL NOTIFY CLINICAL MULTI NEEDLE MACHINE OPERATOR AND PHYSICIAN/PROVIDER WITH ANY CHANGE IN CONDITION. [code = SKILLED NURSE WILL MAINTAIN SITUATIONAL AWARENESS FOR SAFETY AND WILL NOTIFY CLINICAL MULTI NEEDLE MACHINE OPERATOR AND PHYSICIAN/PROVIDER WITH ANY CHANGE IN CONDITION.] [...] CARE WILL BE ESTABLISHED THAT MEETS PATIENT'S [facility] NEEDS AND INCLUDES PATIENT GOAL FOR HOME [...] 2024-08-01 00:00:00 Outpatient RECERTIFIC ATION STEFAN PALENCIA [facility] [id number] 5.00
[2024-07-02 21:47] VITALS: BP 114/72; PULSE 79; RESP 16; TEMP 37.1; O2SAT 98
[2024-07-02 21:48] LABS: Amphetamine Screen Urine Not Detected (Not Detect); Barbiturates, Urine Not Detected (Not Detect); Benzodiazepines Screen Urine Not Detected (Not Detect); Buprenorphine Scr Not Detected (Not Detect); Cannabinoid Screen Urine Not Detected (Not Detect); Cocaine Screen Urine Not Detected (Not Detect); Fentanyl, urine Not Detected (Not Detect); Methadone Screen, Urine Not Detected (Not Detect); Opiate Screen Urine Not Detected (Not Detect); Oxycodone Screen Urine Not Detected (Not Detect); Phencyclidine Screen Urine Not Detected (Not Detect)
[2024-07-02] MEDS: Folic Acid 1 MG TABLET PO (21:49)
[2024-07-02] MEDS: Thiamine HCL 100 MG TABLET PO (21:49)
[2024-07-02] MEDS: Magnesium Sulfate/H2O 2 GM/50 ML PIGGYBACK IV (21:49)
--- NOTE | 2024-07-02 21:55 | PC.NURSE ---
medicated per mar, Iv placed
--- NOTE | 2024-07-02 21:58 | PHA.MEDREC ---
Pharmacy Consult ? Medication Reconciliation Pharmacy has completed the medication reconciliation. Med list obtained from [facility]
[2024-07-02 22:16] LABS: Influenza A PCR NEGATIVE (Negative); Influenza B PCR NEGATIVE (Negative); Resp Syncy Virus RNA Qual PCR NEGATIVE (Negative); SARS COV2 PCR INHOUSE NEGATIVE (Negative)
--- NOTE | 2024-07-03 05:51 | PC.NURSE ---
Update jessica Cornelius plan of care for pt.
[2024-07-03 05:57] VITALS: BP 117/80; PULSE 78; RESP 16; TEMP 36.4; O2SAT 99
--- NOTE | 2024-07-03 08:15 | PC.NURSE ---
PT at bedside to work with patient.
[2024-07-03 08:29] VITALS: BP 117/80; PULSE 78; O2SAT 99
--- NOTE | 2024-07-03 11:25 | PC.NURSE ---
Assumed care of this patient at 1100, patient sleeping quietly on stretcher at this time, med rec completed, provider Stephanie asked to order.
--- NOTE | 2024-07-03 11:57 | MHC.CM.ED ---
Received case management consult overnight. Patient came to the ER due to weakness and difficulty ambulating at [facility]. Work up essentially negative. Physical therapy eval completed. Short term rehab is recommended. Patient was at [facility] due to detox from alcohol. Anticipate patient will be difficult to place due to this. Referral broadcasted within 25 miles to all facilities contracted with [facility]. Patient will need a [facility] PASRR Level 2 and MDS completed when facility is found. Continue to monitor for d/c needs.
--- NOTE | 2024-07-03 12:25 | PC.NURSE ---
Patient able to walk to BR w/ walker & SB assist.
[2024-07-03 12:48] VITALS: BP 121/82; PULSE 72; RESP 16; TEMP 37; O2SAT 100
[2024-07-03 18:25] VITALS: RESP 18
[2024-07-03 18:34] VITALS: BP 115/72; PULSE 80; RESP 18; TEMP 37.2; O2SAT 100
--- NOTE | 2024-07-03 18:40 | PC.NURSE ---
Pt has been cleared by the care team. He no longer requires a sitter. He is now Case mangement for STR
--- NOTE | 2024-07-03 20:02 | MHC.CM.ED ---
Addendum entered by Lennie Oconnell 07/03/24 20:12: CM has called [facility]. Spoke with nurse and nursing animal humane agent supervisor. Pt does have a cell phone and belongings at the facility. They have no way to get his belongings to [facility]. CM will lease picker patient's belongings tomorrow at 2 pm. Pt is aware. Original Note: CM met with patient with the use of the diplomatic interpreter/translator, as patient is Lebanese speaking only. A&Ox3. Pt states he lives at the [facility] long term at the [place] [id number] on [address] in [place]. Lost his cane. Does not have a walker. States he has a MANUFACTURING MAINTENANCE TECHNICIAN for 45 minutes daily Monday through Monday. Cannot remember what agency his MANUFACTURING MAINTENANCE TECHNICIAN is from. Verified that his PCP is Dr. Patten. No HCP on file. States he has no one to be his HCP. He does have a [facility] on file- DNR/DNI. Pt was at [facility]. According to Care Team, patient was a direct admit to [facility] on 06/28 24 for depression and alcohol use disorder. Pt returned today for medical clearance, as patient has had difficulty ambulating. PT is recommending STR. Recommends use of walker. Pt is agreeable reluctantly to STR. Will place local referrals. Pt tells CM that his cell phone and all of his belongings are at [facility], he thinks. CM will call [facility] to see if he has any belongings there. CM will follow for discharge planning.
[2024-07-03] MEDS: Acamprosate Calcium 333 MG TABLET.DR PO (21:45)
[2024-07-03] MEDS: metFORMIN HCl 1,000 MG TABLET 1000 MG PO (21:45)
[2024-07-03] MEDS: Atorvastatin Calcium 10 MG TABLET PO (21:45)
[2024-07-03] MEDS: QUEtiapine Fumarate 100 MG TABLET PO (21:45)
--- NOTE | 2024-07-03 22:43 | PC.NURSE ---
pt medicated per mar with bedtime medications and provided with sandwich, sf eric otilio, and pudding.
--- NOTE | 2024-07-04 07:03 | MHC.CM.ED ---
Patient remains in ER. Copy of HCP obtained from [facility]. Still waiting for bed offer for STR. Continue to monitor for d/c needs.
[2024-07-04] MEDS: Thiamine HCL 100 MG TABLET PO (09:00)
[2024-07-04] MEDS: Escitalopram Oxalate 20 MG TABLET PO (09:00)
[2024-07-04] MEDS: Aspirin 81 MG TAB.CHEW PO (09:00)
[2024-07-04] MEDS: Acamprosate Calcium 333 MG TABLET.DR PO ×2 (09:00→21:12)
[2024-07-04] MEDS: Multivitamin TABLET 1 TAB PO (09:00)
[2024-07-04] MEDS: metFORMIN HCl 1,000 MG TABLET 1000 MG PO ×2 (09:00→21:13)
[2024-07-04] MEDS: lisinopriL 5 MG TABLET PO (09:01)
[2024-07-04] MEDS: Folic Acid 1 MG TABLET PO (09:01)
[2024-07-04] MEDS: Pioglitazone HCL 45 MG TABLET PO (09:13)
[2024-07-04] MEDS: glipiZIDE 10 MG TABLET PO (09:13)
[2024-07-04 09:37] VITALS: BP 129/84; PULSE 78; RESP 16; TEMP 36.8; O2SAT 99
--- NOTE | 2024-07-04 09:41 | MHC.CM.ED ---
Patient remains in ER. No bed offers at this time. Referral broadcasted within 50 miles. Continue to monitor for d/c needs.
--- NOTE | 2024-07-04 12:07 | PC.NURSE ---
Patient walking to bathroom with walker.
--- NOTE | 2024-07-04 12:28 | PC.NURSE ---
Patient walked to bathroom without a walker.
--- NOTE | 2024-07-04 14:11 | MHC.CM.ED ---
Addendum entered by Serene Mcnulty 07/04/24 15:35: Re[facility] She will be on-site tomorrow 07/05 between 9a-10am. Original Note: [facility] if patient is agreeable to STR and a HCP can be completed. Met with patient and medical technologist prn. Patient is agreeable to [facility] and is aware that he will need to participate in rehab. Patient's HCP from [facility] names Dotty. Per patient, Dotty has . Patient is not sure if his INSPECTOR AND TESTER, Belkis would be willing to serve as his HCP. T/W spoke with Belkis via telephone at [phone]. Belkis is wiling to serve as patient's HCP. HCP will be completed and signed by patient. [facility] aware and agreeable. Anticipate patient will need a on-site assessment for [facility] PASRR Level 2. [facility] PASRR Level 1 submitted. MDS completed and sent to [facility] and [facility]. Continue to monitor for d/c needs.
[2024-07-04 14:32] VITALS: BP 130/85; PULSE 79; RESP 14; TEMP 36.9; O2SAT 98
--- NOTE | 2024-07-04 14:59 | PC.NURSE ---
Patient walking to bathroom independently again this time he used the walker.
[2024-07-04 15:38] LABS: Magnesium 1.3 mg/dL (1.6-2.6)
[2024-07-04] MEDS: Magnesium Sulfate/H2O 2 GM/50 ML PIGGYBACK IV (15:50)
[2024-07-04] MEDS: Atorvastatin Calcium 10 MG TABLET PO (21:12)
[2024-07-04] MEDS: QUEtiapine Fumarate 100 MG TABLET PO (21:12)
[2024-07-04 23:00] VITALS: BP 110/72; PULSE 93; RESP 16; TEMP 36.8; O2SAT 98
[2024-07-04 23:37] LABS: Magnesium 1.7 mg/dL (1.6-2.6)
[2024-07-05 05:59] VITALS: BP 106/68; PULSE 84; RESP 16; TEMP 36.8; O2SAT 99
--- NOTE | 2024-07-05 06:30 | PC.NURSE ---
pt resting comfortably throughout the night, no apparent distress. pt used the urinal during the night
[2024-07-05 07:21] VITALS: BP 123/75; PULSE 75; RESP 12; TEMP 37.1; O2SAT 99
[2024-07-05] MEDS: Folic Acid 1 MG TABLET PO (08:06)
[2024-07-05] MEDS: Escitalopram Oxalate 20 MG TABLET PO (08:06)
[2024-07-05] MEDS: Thiamine HCL 100 MG TABLET PO (08:06)
[2024-07-05] MEDS: lisinopriL 5 MG TABLET PO (08:06)
[2024-07-05] MEDS: metFORMIN HCl 1,000 MG TABLET 1000 MG PO ×2 (08:06→21:10)
[2024-07-05] MEDS: Multivitamin TABLET 1 TAB PO (08:06)
[2024-07-05] MEDS: Aspirin 81 MG TAB.CHEW PO (08:06)
[2024-07-05] MEDS: Magnesium Oxide 400 MG TABLET PO (08:06)
[2024-07-05] MEDS: glipiZIDE 10 MG TABLET PO (09:21)
[2024-07-05] MEDS: Pioglitazone HCL 45 MG TABLET PO (09:21)
[2024-07-05] MEDS: Acamprosate Calcium 333 MG TABLET.DR PO ×2 (09:21→21:11)
--- NOTE | 2024-07-05 09:36 | PC.NURSE ---
assumed care of patient at 0700, patient is awake and alert, primarily mexican speaking. patient medicated per JUN, VSS
--- NOTE | 2024-07-05 10:25 | MHC.CM.ED ---
Patient remains in ER overflow. Kamryn from [facility] completed assessment. Hoping to have Level 2 by Monday. Continue to monitor for d/c needs.
--- NOTE | 2024-07-05 12:27 | PC.NURSE ---
patient sitting up eating lunch tray, awake and alert
[2024-07-05 14:40] VITALS: BP 108/71; PULSE 83; RESP 14; TEMP 36.7; O2SAT 98
--- NOTE | 2024-07-05 14:59 | PC.NURSE ---
patient ambulated to nurses station without walker to ask for water. this RN walked with patient back to room with water. patient gait steady but shuffled
[2024-07-05] MEDS: Atorvastatin Calcium 10 MG TABLET PO (21:10)
[2024-07-05 21:15] LABS: Glucose, Whole Blood 224 mg/dL (60-115)
[2024-07-05] MEDS: QUEtiapine Fumarate 100 MG TABLET PO (22:18)
--- NOTE | 2024-07-05 22:34 | PC.NURSE ---
POC 224. Patient medicated with bedtime mediations including Metformin 1000 mg PO. Patient in no apparent distress, respirations even and unlabored. RR 16. He denies any pain at present. Currently resting in hospital bed, watching TV, call anthony in reach.
--- NOTE | 2024-07-06 05:18 | PC.NURSE ---
Patient had uneventful night. He slept through the night, no distress observed/reported. Patient has been calm and cooperative with care.
--- NOTE | 2024-07-06 05:31 | PC.NURSE ---
Patient is awake, offers no complaints. All needs met. Patient resting in hospital bed with TV on at this time. Call anthony in reach, plan of care ongoing.
[2024-07-06 06:11] VITALS: BP 114/84; PULSE 79; RESP 16; TEMP 36.3; O2SAT 96
[2024-07-06] MEDS: Aspirin 81 MG TAB.CHEW PO (08:54)
[2024-07-06] MEDS: Acamprosate Calcium 333 MG TABLET.DR PO ×2 (08:54→21:11)
[2024-07-06] MEDS: Magnesium Oxide 400 MG TABLET PO (08:54)
[2024-07-06] MEDS: glipiZIDE 10 MG TABLET PO (08:54)
[2024-07-06] MEDS: Escitalopram Oxalate 20 MG TABLET PO (08:54)
[2024-07-06] MEDS: metFORMIN HCl 1,000 MG TABLET 1000 MG PO ×2 (08:54→21:14)
[2024-07-06] MEDS: Multivitamin TABLET 1 TAB PO (08:54)
[2024-07-06] MEDS: Pioglitazone HCL 45 MG TABLET PO (08:54)
[2024-07-06] MEDS: Thiamine HCL 100 MG TABLET PO (08:54)
[2024-07-06] MEDS: lisinopriL 5 MG TABLET PO (08:54)
[2024-07-06] MEDS: Folic Acid 1 MG TABLET PO (08:54)
[2024-07-06 13:09] VITALS: BP 112/66; PULSE 90; RESP 20; TEMP 37.1; O2SAT 99
[2024-07-06 16:34] LABS: Glucose, Whole Blood 161 mg/dL (60-115)
--- NOTE | 2024-07-06 18:39 | PC.NURSE ---
occupational therapy aides teacher at bedside for assessment and med administration. no acute events this shift. pt refusing diabetic diet; refusing diet gingerale along with other food groups that will raise pt's sugar.
[2024-07-06 18:50] VITALS: BP 128/77; PULSE 91; RESP 16; TEMP 36.9; O2SAT 98
[2024-07-06] MEDS: QUEtiapine Fumarate 100 MG TABLET PO (21:12)
[2024-07-06] MEDS: Atorvastatin Calcium 10 MG TABLET PO (21:16)
[2024-07-06] MEDS: hydrOXYzine HCL 50 MG TABLET PO (21:20)
[2024-07-06] MEDS: Melatonin 3 MG TABLET PO (21:21)
[2024-07-07 06:00] VITALS: BP 127/76; PULSE 80; RESP 14; TEMP 36.6; O2SAT 97
[2024-07-07] MEDS: Pioglitazone HCL 45 MG TABLET PO (10:26)
[2024-07-07] MEDS: Multivitamin TABLET 1 TAB PO (10:26)
[2024-07-07] MEDS: metFORMIN HCl 1,000 MG TABLET 1000 MG PO ×2 (10:26→21:03)
[2024-07-07] MEDS: Aspirin 81 MG TAB.CHEW PO (10:26)
[2024-07-07 10:27] VITALS: BP 127/76
[2024-07-07] MEDS: Thiamine HCL 100 MG TABLET PO (10:27)
[2024-07-07] MEDS: Folic Acid 1 MG TABLET PO (10:27)
[2024-07-07] MEDS: Acamprosate Calcium 333 MG TABLET.DR PO ×2 (10:27→21:03)
[2024-07-07] MEDS: Escitalopram Oxalate 20 MG TABLET PO (10:27)
[2024-07-07] MEDS: lisinopriL 5 MG TABLET PO (10:27)
[2024-07-07] MEDS: glipiZIDE 10 MG TABLET PO (10:27)
[2024-07-07] MEDS: Magnesium Oxide 400 MG TABLET PO (10:27)
--- NOTE | 2024-07-07 12:30 | PC.NURSE ---
Pt. AOX3, independently ambulating, denies pain and or any symptoms of ETOH withdrawal. Call anthony within place, will continue to montior.
[2024-07-07 13:04] VITALS: BP 104/69; PULSE 101; RESP 18; TEMP 36.9; O2SAT 99
[2024-07-07] MEDS: QUEtiapine Fumarate 100 MG TABLET PO (21:03)
[2024-07-07] MEDS: Atorvastatin Calcium 10 MG TABLET PO (21:03)
[2024-07-07 21:04] VITALS: BP 114/69; PULSE 94; RESP 14; TEMP 36.9; O2SAT 100
[2024-07-07] MEDS: Melatonin 3 MG TABLET PO (21:05)
[2024-07-08 03:40] VITALS: BP 114/69; PULSE 94; RESP 14; TEMP 36.9
[2024-07-08 05:44] VITALS: BP 114/85; PULSE 62; RESP 16; TEMP 36.6; O2SAT 97
--- NOTE | 2024-07-08 08:09 | MHC.CM.ED ---
Addendum entered by Serene Mcnulty 07/08/24 10:12: [facility] leveling received. [facility] booked. Med [facility] with chart. Patient, Elis RN and Floridalma CASTAÑEDA aware. Original Note: Patient remains in ER overflow. [facility] PASRR Level 2 obtained. Sent to [facility] and [facility]. Waiting for [facility] approval before patient will be able to d/c to [facility]. Continue to monitor for d/c needs.
[2024-07-08] MEDS: Multivitamin TABLET 1 TAB PO (09:25)
[2024-07-08] MEDS: lisinopriL 5 MG TABLET PO (09:25)
[2024-07-08] MEDS: Thiamine HCL 100 MG TABLET PO (09:25)
[2024-07-08] MEDS: Escitalopram Oxalate 20 MG TABLET PO (09:25)
[2024-07-08] MEDS: metFORMIN HCl 1,000 MG TABLET 1000 MG PO (09:25)
[2024-07-08] MEDS: Aspirin 81 MG TAB.CHEW PO (09:25)
[2024-07-08] MEDS: Acamprosate Calcium 333 MG TABLET.DR PO (09:25)
[2024-07-08] MEDS: Magnesium Oxide 400 MG TABLET PO (09:25)
[2024-07-08] MEDS: Folic Acid 1 MG TABLET PO (09:25)
[2024-07-08] MEDS: glipiZIDE 10 MG TABLET PO (09:25)
[2024-07-08] MEDS: Pioglitazone HCL 45 MG TABLET PO (09:25)
[2024-07-08 11:27] VITALS: BP 120/87; PULSE 64; RESP 16; TEMP 36.6; O2SAT 95
== END 2024-07-08 11:28 ==
PROVIDERS: Physician Assistant Medical; Emergency Provider Emergency Medicine Emergency Medical Services; PCP Internal Medicine
DX: R26.2 Difficulty in walking, not elsewhere classified (principal); R53.1 Weakness; E83.42 Hypomagnesemia; E11.9 Type 2 diabetes mellitus without complications; I10 Essential (primary) hypertension; D64.9 Anemia, unspecified; F31.9 Bipolar disorder, unspecified; F17.210 Nicotine dependence, cigarettes, uncomplicated; Z91.148 Patient's other noncompliance with medication regimen for other reason; Z03.818 Encounter for observation for suspected exposure to other biological agents ruled out
CPT/HCPCS: 0241U; 36415; 70450; 80053; 80307; 82550; 82607; 82746; 82947; 83690; 83735; 84443; 85007; 85025; 85027; 85652; 85730; 86140; 96365; 96366; 97162; 99285; J3475; S9485

== ENCOUNTER → 2024-07-02 18:12 | Outpatient (BNV) | payer MEDICARE, MEDICAID, SELFPAY | PROVIDERS: Emergency Provider Emergency Medicine Emergency Medical Services; Visit Provider Student in an Organized Health Care Education/Training Program | DX: G70.9 Myoneural disorder, unspecified (principal); R53.1 Weakness | CPT/HCPCS: 70450 ==

== ENCOUNTER 2024-08-20 11:50 | Outpatient (AMB) | payer MEDICARE, MEDICAID, SELFPAY ==
--- NOTE | 2024-08-20 12:28 | A.OFFPC_ITS ---
Vital Signs 08/20/24 12:30 Height 5 ft 5 in Weight 150 lb BMI 25.0 BP 100/60 Blood Pressure Location Lt brachial Position Sitting Respiration 16 Pulse 86 Pulse Source Pulse Oximeter Temp 98.1 F Temp Source Oral Pulse Oximetry (%) 98 Oxygen Delivery Method Room Air Intake Visit Reasons: d/c shahram vista ETOH rehap Naphtha Washing System Operator Required: Yes Naphtha Washing System Operator Name: Skylar from [facility] Information Interpreted: non-clinical & clinical Gear Cutting Machine Set Up Operator: Present Allergies shellfish derived [shellfish] Allergy (Verified 08/20/24 12:43) Unknown Medication List - Last Reconciled 08/20/24 by Hanna Patten MD acamprosate 333 mg PO BID aspirin 81 mg PO DAILY blood sugar diagnostic (Xamplified test strips) USE TO TEST FINGER STICK BLOOD SUGAR ONCE DAILY blood-glucose meter (FreeStyle Lite Meter kit) As directed blood-glucose meter (Newspepper TALK Glucose Monitor) As directed calcium carbonate (Tums) 200 mg PO Q4H PRN clonidine HCl 0.1 mg PO TID PRN docusate sodium (Colace) 100 mg PO BID PRN escitalopram oxalate 20 mg PO DAILY folic acid 1 mg PO DAILY glipizide 10 mg PO DAILY guaifenesin ER 1,200 mg PO Q12H PRN hydroxyzine pamoate 50 mg PO Q4H PRN ibuprofen 400 mg PO Q8H PRN lancets (Easy Comfort Lancets) USE TO TEST FINGER STICK BLOOD SUGAR ONCE DAILY leg brace (Knee Brace Large-XLarge) use daily in left knee as directed lisinopril 5 mg PO DAILY loperamide 2 mg PO Q4H PRN lorazepam 2 mg PO Q1H PRN lorazepam 1 mg PO Q2H PRN melatonin 3 mg PO BEDTIME PRN metformin 1,000 mg (2 x 500 mg) PO BID multivitamin 1 tab PO DAILY nicotine 1 patch transdermal DAILY PRN nicotine (polacrilex) 2 mg buccal Q2H PRN ondansetron 4 mg PO Q6H PRN pioglitazone 45 mg PO DAILY quetiapine 100 mg PO BEDTIME simvastatin 10 mg PO BEDTIME thiamine HCl (vitamin B1) 100 mg PO DAILY Tobacco use date assessed: 08/20/24 Dental Screening Dental Screen Date: 08/20/24 Did you have a dental visit in the last 12 months?: Yes Did you have a dental problem in the last 6 months where you did not have access to dental care?: Yes Was dental information given to patient?: Patient has dentist HPI d/c shahram parker ETOH rehap HPI Details - 59-year-old male with history of diabe cyndi mellitus, alcohol use disorder, hypertension, bipolar 1 disorder, here today accompanied by a [facility], presenting for follow-up after recent discharge from rehab program. Has been having recurrent episodes of dizziness which has led to several falls.- Dizziness has been reported almost daily, has occurred for the past two weeks, and is sometimes later in the day. - Falls have been frequent, about four times recently, resulting in head impacts. - He resides in a care home and relies on [facility]NA[facility] services; medications managed through a locked box system leading to compliance challenges, as [facility] is only going to the care home 3 times a week to give him his medicines, as allowed by his insurance. - He has a past of substance use disorde r, ceased alcohol intake a month prior, currently on Acamprosate started when he was in Rehab in [facility] , but continues to smoke at least 15 cigarettes a day . - Reports blurred vision, uncomfortable with potential eye-related issues tied to diabetes. - Diagnosed with bipolar disorder withou t current info on prescribing source for treatments, as per [facility] , he sees a therapist regularly , but does not know who has been prescribing him his medications. [facility] Medical History Homeless single person Dizziness Anemia Diabetes mellitus, without long-term current use of insulin History of alcoholism Polyarthralgia Vitamin D deficiency Colonoscopy refused Knee pain, bilateral COVID-19 vaccination declined Smokes 1.5-2 packs of cigarettes per day Cigarette smoker motivated to quit Knee pain, chronic Essential hypertension Alcohol use disorder Bipolar 1 disorder Diabetes mellitus with hyperglycemia, without long-term current use of insulin Family History Brother Mental health disorder Substance abuse Father Mental health disorder Mother Mental health disorder Social History (Updated 08/20/24 @ 16:09 by Hanna Patten MD) Household Members: Other Housing: Homeless Housing Other:: Lives in a homeless care home Are you a primary home health care coordinator to a significant other at home: No Do you presently have visiting nurse or other home services: Yes Alcohol intake: former Patient Tobacco Use Status: Current everyday Tobacco user Tobacco use type: Cigarette Cigarette Packs Per Day: 1 Cigarettes Per Day: 20 Years Smoked: 35 e-Cigarette/Vaping Use: Never Used Second Hand Smoke Exposure: Yes Advance Directives Date on File: 08/08/22 Current occupational status: disabled Cognitive needs: No Hearing needs: No Vision needs: Yes Questionnaire PHQ-9 Over the last 2 weeks, how often have you been bothered by any of the following problems? 1. Little interest or pleasure in doing things: nearly every day 2. Feeling down, depressed, or hopeless: nearly every day 3. Trouble falling or staying asleep, or sleeping too much: more than half the days 4. Feeling tired or having little energy: more than half the days 5. Poor appetite or overeating: more than half the days 6. Feeling bad about yourself - or that you are a failure or have let yourself or your family down: several days 7. Trouble concentrating on things, such as reading the newspaper or watching television: several days 8. Moving or speaking so slowly that other people could have noticed. Or the opposite - being so fidgety or restless that you have been moving around a lot more than usual: several days 9. Thoughts that you would be better off or of hurting yourself in some way: not at all Total score: 15 Depression Screening Interpretation: Positive (Has been diagnosed to have bipolar disorder and currently sees psych and therapist) Depression Screening Follow-up: Existing condition, In treatment and Community Mental Health Worker F/U Depression Screening Done: Yes Source: Developed by Drs. Manjit Barbour, Elizabeth Samaniego, Artem Rivera and colleagues, with an educational jessica from [employer]. Thrive Questionnaire Date Thrive assessed: 08/20/24 I am a: Parent/Caregiver What is your living situation today?: I choose not to answer this question Within the past 12 months, did the food you bought not last and you didn't have the money to get more?: I choose not to answer this question Within the past 12 months, did you worry whether your food would run out before you got money to buy more?: I choose not to answer this question Do you have trouble paying for medicines?: I choose not to answer this question Do you have trouble getting transportation to medical appointments?: No Do you have trouble paying your heating and electricity bill?: I choose not to answer this question Do you have trouble taking care of your child, family member or friend?: I choose not to answer this question Do you have trouble with day-to-day activities such as bathing, preparing meals, shopping, managing finances, etc.?: Yes Are you currently unemployed and looking for a job?: I choose not to answer this question Are you interested in more education?: I choose not to answer this question Please select the resources that you would like help with: Daily support and None Currently or been in a relationship where the following occur: No concerns reported THRIVE Score: 0 AUDIT C Alcohol Use Questionnaire (AUDIT-C) 1. How often do you have a drink containing alcohol?: Never 2. How many drinks containing alcohol do you have on a typical day when you are drinking?: 7 to 9 3. How often do you have six or more drinks on one occasion?: Never Total Score: 3 MONSERRAT-7 AMB Questionnaire MONSERRAT-7 Date MONSERRAT - 7 assessed: 08/20/24 Feeling nervous, anxious, or on edge: 1 = Several days Not being able to stop or control worryin = Several days Worrying too much about different things: 1 = Several days Trouble relaxin = Several days Being so restless that it is hard to sit still: 0 = Not at all Becoming easily annoyed or irritable: 0 = Not at all Feeling afraid as if something awful might happen: 0 = Not at all Total MONSERRAT-7 score (0-4 normal; 5-9 mild; 10-14 moderate; 15-21 severe): 4 Source: Developed by Drs. Manjit Barbour, Elizabeth Samaniego, Artem Rivera and colleagues, with an educational jessica from [employer]. MONSERRAT-7 Assessment Billing MONSERRAT-7 Assessment Tool: MONSERRAT-7 Assessment 71118 Review of Systems Const Denies fever(s), Denies night sweats and Denies weight loss Eyes Reports blurry vision ENT Denies dysphagia, Denies odynophagia, Denies throat swelling and Denies tongue swelling Card Reports no additional complaints Resp Reports no additional complaints GI Denies melena, Denies bloating, Denies hematochezia, Denies constipation, Denies dysphagia, Denies excessive flatus, Denies early satiety, Reports heartburn, Denies nausea, Denies odynophagia, Denies vomiting and Denies hematemesis Reports no additional complaints Musc Reports abnormal gait, Reports arthralgias, Denies joint swelling and Reports stiffness Skin/Breast Denies pruritus, Denies lesions, Denies rash and Denies jaundice Neuro Denies Abnormal speech present and Reports abnormal gait Psych Reports no additional complaints Endo Reports no additional complaints Melvin/Lymph Reports no additional complaints Aller/Immun Denies throat swelling and Denies tongue swelling Physical exam (Primary Care) Vital Signs: Last Vital Signs Temp 98.1 F 08/20/24 12:30 Pulse 86 08/20/24 12:30 Resp 16 08/20/24 12:30 BP 100/60 08/20/24 12:30 Pulse Ox 98 08/20/24 12:30 Oxygen Delivery Method Room Air 08/20/24 12:30 BMI result Body Mass Index 25.0 Tobacco/Smoking Status: Tobacco use Status Tobacco use date assessed 08/20/24 08/20/24 12:35 Patient Tobacco Use Status Current everyday Tobacco 08/20/24 12:30 Tobacco use type Cigarette 08/20/24 12:30 e-Cigarette/Vaping Use Never Used 08/20/24 12:30 Are you ready to quit: No PHQ-9: PHQ-9 Score PHQ-9: Total score 15 08/20/24 13:06 Depression Screening Interpretation: Positive (Has been diagnosed to have bipolar disorder and currently sees psych and therapist) Depression Screening Follow-up: Existing condition, In treatment and Community Mental Health Worker F/U Thrive Assessment: Date of Thrive Assessment Date Thrive assessed 08/20/24 08/20/24 12:35 Currently or been in a relationship where the following occur: No concerns reported Const General: comfortable and no acute distress Nutritional Appearance: average body habitus Orientation/consciousness: patient oriented x3 HENMT Head: Yes normocephalic Face and sinus: Yes face symmetric Mouth: Normal oral and palatal mucosa present, oropharynx normal and moist mucous membranes Eyes General: appearance normal, both eyes and all related structures Neck Neck: Yes full ROM, Yes no lymphadenopathy and Yes supple Resp Effort & Inspection: normal respiratory effort Auscultation: clear to auscultation bilaterally Cardio Other: S1-S2 present regular rate and rhythm GI Palpation (GI): Soft to palpation, nontender, no guarding and no masses Other: refused exam Back/Spine/Pelvis Back: No back tenderness Skin General skin exam: dry skin Neuro General: patient oriented x3, tone normal, moves all extremities, no focal motor deficits and CN's II-XI intact bilaterally Speech: No Abnormal speech present Extrem General: Yes full ROM, Yes no joint enlargement, Yes no pedal edema, Yes no calf tenderness and Yes normal gait Psych Other: Positive crepitus in knees Appearance: grossly normal Mental Status: mental status grossly normal Affect: normal affect Attitude: Avoids eye contact (attititude/behavior) Coding Level of Care Code Est Pt Level 5 (32537) Complex EM visit Add On G2211 Diagnoses Alcohol use disorder F10.90 Diabetes mellitus, without long-term current use of insulin E11.9 Anemia, unspecified type D64.9 Anemia type: unspecified type Bipolar 1 disorder F31.9 Essential hypertension I10 Polyarthralgia M25.50 Smokes 1.5-2 packs of cigarettes per day F17.210 COVID-19 vaccination declined Z28.21 Dizziness R42 Homeless single person Z59.00 Additional Codes MONSERRAT-7 Assessment Billing - MONSERRAT-7 Assessment Tool: MONSERRAT-7 Assessment 11497 ([id number]) Time Spent (min) 40 Comment Over 40 minutes spent coordinating case with leak [facility], and refer to med coordinator and s Assessment & Plan Assessment & Plan (1) Alcohol use disorder: Comment: Started on Acamprosate by [facility] Category: Medical Plan: Has been sober now for several months. Currently on acamprosate, but compliance with taking medication is an issue as he only has [facility] coming to his care home 3 times a week to give him his medications due to insurance limitations. Will try to get him VNA services daily to give him his medications (2) Diabetes mellitus, without long-term current use of insulin: Code(s): E11.9 - Type 2 diabetes mellitus without complications Category: Medical Plan: Fasting labs ordered , currently on pioglitazone, metformin and glipizide, but unsure about medication compliance as he has only access to his medications 3 times a week with the [facility] access as his locked box containing the medication. (3) Anemia: Code(s): D64.9 - Anemia, unspecified Category: Medical Qualifiers: Anemia type: unspecified type Qualified Code(s): D64.9 - Anemia, unspecified Plan: Will check CBC and iron profile (4) Bipolar 1 disorder: Comment: Sees med prescriber at [facility], cookie goes to N Code(s): F31.9 - Bipolar disorder, unspecified Category: Medical Plan: Currently being seen by Psychiatry and therapist at (5) Essential hypertension: Code(s): I10 - Essential (primary) hypertension Category: Medical Plan: Blood pressure within normal limits at present time, currently on lisinopril 5 mg daily, unsure about medication compliance due to lack of access to his medications regularly (6) Polyarthralgia: Code(s): M25.50 - Pain in unspecified joint Category: Medical Plan: Takes an ibuprofen as needed (7) Smokes 1.5-2 packs of cigarettes per day: Code(s): F17.210 - Nicotine dependence, cigarettes, uncomplicated Category: Social Hx Plan: Strongly advised patient to quit smoking, does not want to try any aids to help quit smoking at present time. (8) COVID-19 vaccination declined: Code(s): Z28.21 - Immunization not carried out because of patient refusal Category: Medical Plan: Does not want to get COVID vaccination (9) Dizziness: Code(s): R42 - Dizziness and giddiness Category: Medical Plan: Has had repeated strokes to his said after falling several times, will get CT of head, check CBC and BMP, vitamin B1 , B12 and vitamin-D (10) Homeless single person: Code(s): Z59.00 - Homelessness unspecified Category: Social Hx Plan: Patient currently living in a homeless care home, has [facility] assisting him, trying to get him in to his own home, Orders: Orders Comprehensive Bronson. Panel Fast Today D64.9 - Anemia, unspecified, E11.9 - Type 2 diabetes mellitus without complications, F31.9 - Bipolar disorder, unspecified, I10 - Essential (primary) hypertension, M25.50 - Pain in unspecified joint Vitamin D 25-OH Total Today D64.9 - Anemia, unspecified, E11.9 - Type 2 diabetes mellitus without complications, F31.9 - Bipolar disorder, unspecified, I10 - Essential (primary) hypertension, M25.50 - Pain in unspecified joint Vitamin B12 and Folate Today D64.9 - Anemia, unspecified, E11.9 - Type 2 diabetes mellitus without complications, F31.9 - Bipolar disorder, unspecified, I10 - Essential (primary) hypertension, M25.50 - Pain in unspecified joint Vitamin B1 Today D64.9 - Anemia, unspecified, E11.9 - Type 2 diabetes mellitus without complications, F31.9 - Bipolar disorder, unspecified, I10 - Essential (primary) hypertension, M25.50 - Pain in unspecified joint Complete Blood Count Auto Diff Today D64.9 - Anemia, unspecified, E11.9 - Type 2 diabetes mellitus without complications, F31.9 - Bipolar disorder, unspecified, I10 - Essential (primary) hypertension, M25.50 - Pain in unsp ecified joint Hemoglobin A1c Today D64.9 - Anemia, unspecified, E11.9 - Type 2 diabetes mellitus without complications, F31.9 - Bipolar disorder, unspecified, I10 - Essential (primary) hypertension, M25.50 - Pain in unspecified joint Microalbumin, Random (w Creat) Today D64.9 - Anemia, unspecified, E11.9 - Type 2 diabetes mellitus without complications, F31.9 - Bipolar disorder, unspecified, I10 - Essential (primary) hypertension, M25.50 - Pain in unspecified joint Lipid Panel Today D64.9 - Anemia, unspecified, E11.9 - Type 2 diabetes mellitus without complications, F31.9 - Bipolar disorder, unspecified, I10 - Essential (primary) hypertension, M25.50 - Pain in unspecified joint CT head/brain wo IV con Today R29.6 - Repeated falls, R42 - Dizziness and giddiness
[2024-08-20 12:30] VITALS: BP 100/60; PULSE 86; RESP 16; TEMP 36.7; O2SAT 98; BMI 25.0
--- OUTSIDE RECORDS SUMMARY | 2024-08-20 14:19 | XMS_ITS | Encounter Summary ---
Demographics Address [address] [place] [address] Home Phone Mobile Phone Preferred Language es Marital Status Single Orthodoxy Affiliation Unknown Race Unknown Ethnic Group or Author Organization [facility] Address [address] [place] [address] Care Team Providers Care Game Design Instructor Name Role Phone Paz Mcguire MD Primary Care Provider + Encounter Details Date Type Department Care Team (Late st Contact Info) Description 07/09/2024 Lab Requisition [facility] - Main Lab 299 [facility] [place] [address] Paz Mcguire MD 819 [facility] 1 [place], [place] [id number] Anemia, unspecified; Essential (primary) hypertension; Type 2 diabetes mellitus without complications (CMS/HCC V24, CMS/HCC V28); Polyarthritis, unspecified Social History Tobacco Use Types Packs/Day Years Used Date Smoking Tobacco: Never Assessed Sex and Gender Information Value Date Recorded Sex Assigned at Not on file Legal Sex Male 3:09 PM EST Gender Identity Not on file Sexual Orientation Not on file documented as of this encounter Plan of Treatment Not on file documented as of this encounter Procedures Procedure Name Priority Date/Time Associated Diagnosis Comments COMPLETE BLOOD COUNT Routine 07/09/2024 6:52 AM EDT Anemia, unspecified Essential (primary) hypertension Type 2 diabetes mellitus without complications (CMS/HCC) Polyarthritis, unspecified HEMOGLOBIN A1C Routine 07/09/2024 6:52 AM EDT Anemia, unspecified Essential (primary) hypertension Type 2 diabetes mellitus without complications (CMS/HCC) Polyarthritis, unspecified FOLATE Routine 07/09/2024 6:52 AM EDT Anemia, unspecified Essential (primary) hypertension Type 2 diabetes mellitus without complications (CMS/HCC) Polyarthritis, unspecified VITAMIN B12 Routine 07/09/2024 6:52 AM EDT Anemia, unspecified Essential (primary) hypertension Type 2 diabetes mellitus without complications (CMS/HCC) Polyarthritis, unspecified BASIC METABOLIC PANEL Routine 07/09/2024 6:52 AM EDT Anemia, unspecified Essential (primary) hypertension Type 2 diabetes mellitus without complications (CMS/HCC) Polyarthritis, unspecified documented in this encounter Results * (ABNORMAL) Vitamin B12 (07/09/2024 6:52 AM EDT) Pathologist [facility] Vitamin B-12 1,348(H) 250 - 900 pcg/mL LAB CHEMISTRY METHOD 07/09/2024 9:57 AM EDT [facility] Blood Venous blood specimen / Unknown Venipuncture / Unknown 07/09/2024 6:52 AM EDT 07/09/2024 8:53 AM EDT Paz Mcguire MD LAB BLOOD ORDERABLES Fin al Result Performing Organization Address City/[facility]/ZIP Co de Phone Number [facility] [address] [place] [address], [place] [phone] * (ABNORMAL) Folate (07/09/2024 6:52 AM EDT) Pathologist [facility] Folate >20.0(H) 2.8 - 17.0 ng/ml LAB CHEMISTRY METHOD 07/09/2024 9:57 AM EDT [facility] Blood Venous blood specimen / Unknown Venipuncture / Unknown 07/09/2024 6:52 AM EDT 07/09/2024 8:53 AM EDT Paz Mcguire MD LAB BLOOD ORDERABLES Fin al Result [facility] [address] [place] [address], [place] [phone] * Hemoglobin A1c (07/09/2024 6:52 AM EDT) Pathologist [facility] Hemoglobin A1C 6.3 <6.5 % LAB CHEMISTRY METHOD 07/09/2024 10:45 AM T [facility] Mean Bld Glu Estim. 134 mg/dL LAB CHEMISTRY METHOD 07/09/2024 10:45 AM [facility] Blood Venous blood specimen / Unknown Venipuncture / Unknown 07/09/2024 6:52 AM EDT 07/09/2024 8:53 AM EDT us Paz Mcguire MD LAB BLOOD ORDERABLES Fin al Result [facility] [address] [place] [address], * (ABNORMAL) Basic metabolic panel (07/09/2024 6:52 AM EDT) [facility] Sodium 135 133 - 145 mmol/L LAB CHEMISTRY METHOD 07/09/2024 9:35 AM [facility] Potassium 4.7 3.5 - 5.5 mmol/L LAB CHEMISTRY METHOD 07/09/2024 9:35 AM [facility] Chloride 103 96 - 110 mmol/L LAB CHEMISTRY METHOD 07/09/2024 9:35 AM [facility] CO2 26 21 - 32 mmol/L LAB CHEMISTRY METHOD 07/09/2024 9:35 AM [facility] Anion Gap 6 3 - 11 LAB CHEMISTRY METHOD 07/09/2024 9:35 AM [facility] Glucose 117(H) 70 - 100 mg/dL LAB CHEMISTRY METHOD 07/09/2024 9:35 AM [facility] BUN 8 5 - 25 mg/dL LAB CHEMISTRY METHOD 07/09/2024 9:35 AM [facility] Creatinine 0.62(L) 0.70 - 1.30 mg/dL LAB CHEMISTRY METHOD 07/09/2024 9:35 AM EDT [facility] eGFR 111 >=60 mL/min/1. 73m2 LAB CHEMISTRY METHOD 07/09/2024 9:35 AM EDT [facility] Comment:Calculation based on the??Chronic Kidney Disease Epidemiology Collaboration (CKD-EPI) equation refit??without adjustment for race. BUN/Creatinine Ratio 12.9 LAB CHEMISTRY METHOD 07/09/2024 9:35 AM EDT [facility] Calcium 9.4 8.5 - 10.5 mg/dL LAB CHEMISTRY METHOD 07/09/2024 9:35 AM EDT [facility] Blood Venous blood specimen / Unknown Venipuncture / Unknown 07/09/2024 6:52 AM EDT 07/09/2024 8:53 AM EDT us Paz Mcguire MD LAB BLOOD ORDERABLES Fin al Result [facility] [address] [place] [address], * (ABNORMAL) Complete blood count (07/09/2024 6:52 AM EDT) WBC 6.0 4.8 - 10.8 K/mcL LAB HEMETOLOGY METHOD 07/09/2024 9:09 AM EDT [facility] RBC 3.50(L) 4.50 - 5.50 M/mcL LAB HEMETOLOGY METHOD 07/09/2024 9:09 AM EDT [facility] Hemoglobin 11.9(L) 13.5 - 17.5 g/dL LAB HEMETOLOGY METHOD 07/09/2024 9:09 AM EDT [facility] Hematocrit 35.8(L) 42.0 - 54.0 % LAB HEMETOLOGY METHOD 07/09/2024 9:09 AM EDT [facility] MCV 102.6(H) 79.0 - 98.0 FL LAB HEMETOLOGY METHOD 07/09/2024 9:09 AM EDT [facility] MCH 34.1(H) 27.0 - 32.0 pcg LAB HEMETOLOGY METHOD 07/09/2024 9:09 AM EDT [facility] MCHC 33.2 32.0 - 37.0 g/dL LAB HEMETOLOGY METHOD 07/09/2024 9:09 AM EDT [facility] RDW 12.3 11.0 - 15.0 % LAB HEMETOLOGY METHOD 07/09/2024 9:09 AM EDT [facility] Platelets 248 130 - 400 K/mcL LAB HEMETOLOGY METHOD 07/09/2024 9:09 AM EDT [facility] MPV 10.1 7.0 - 11.0 FL LAB HEMETOLOGY METHOD 07/09/2024 9:09 AM EDT [facility] NRBC 0.0 <1.0 % LAB HEMETOLOGY METHOD 07/09/2024 9:09 AM [facility] NRBC Absolute 0.00 <0.10 K/mcL LAB HEMETOLOGY METHOD 07/09/2024 9:09 AM [facility] Blood Venous blood specimen / Unknown Venipuncture / Unknown 07/09/2024 6:52 AM EDT 07/09/2024 8:53 AM EDT us Paz Mcguire MD LAB BLOOD ORDERABLES Fin al Result [facility] [address] [place] [address], documented in this encounter Visit Diagnoses Diagnosis Anemia, unspecified Essential (primary) hypertension Unspecified essential hypertension Type 2 diabetes mellitus without complications (CMS/HCC V24, CMS/HCC V28) Polyarthritis, unspecified documented in this encounter Care Teams Game Design Instructor Relationship Specialty Start Date End Date Paz Mcguire MD [address] [place] [address] PCP - General Family Medicine 07/09/24 documented as of this encounter
--- OUTSIDE RECORDS SUMMARY | 2024-08-20 14:19 | XMS_ITS | Clinical Summary ---
Demographics Address [address] [place] [address] Home Phone Mobile Phone Preferred Language es Marital Status Single Caodaism Affiliation Unknown Race Unknown Ethnic Group or Author Organization 299 [facility] Address [address] [place] [address] Phone Care Team Providers Care Greaser Operator Name Role Phone Paz Mcguire MD Primary Care Provider + Encounters Date Type Department Care Team Description 07/13/2024 Lab Requisition [facility] [address] [place] [phone] Paz Mcguire MD Anemia, unspecified; Essential (primary) hypertension; Type 2 diabetes mellitus without complications (CMS/HCC V24, CMS/HCC V28) 07/09/2024 Lab Requisition [facility] [address] [place] [phone] Paz Mcguire MD Anemia, unspecified; Essential (primary) hypertension; Type 2 diabetes mellitus without complications (CMS/HCC V24, CMS/HCC V28); Polyarthritis, unspecified from Last 3 Months Social History Tobacco Use Types Packs/Day Years Used Date Smoking Tobacco: Never Assessed Sex and Gender Information Value Date Recorded Sex Assigned at Not on file Legal Sex Male 3:09 PM EST Gender Identity Not on file Sexual Orientation Not on file Plan of Treatment Health Maintenance Due Date Last Done Comments Diabetes: Annual Foot Exam 1977 Diabetes: Annual Retina Eye Exam 1977 DTaP,Tdap,and Td Vaccines (1 - Tdap) 1986 Hepatitis B Vaccines (1 of 3 - 19+ 3-dose series) 1986 Pneumococcal Vaccine: 50+ Years (2 of 2 - PCV) 04/11/2009 04/11/2008 Pneumococcal Vaccine: Pediatrics (0 to 5 Years) and At-Risk Patients (6 to 64 Years) (2 of 2 - PCV) 04/11/2009 04/11/2008 Zoster Vaccines (1 of 2) 2017 COVID-19 Vaccine (2023-2 5 season) 2023 Cholesterol Screening (Lipid Panel) 07/09/2024 Colorectal Cancer Screening: Colonoscopy 07/09/2024 Depression Screening 07/09/2024 Diabetes: Annual Urine Albumin-Creatinine Ratio (uACR) 07/09/2024 HIV Screening 07/09/2024 Hepatitis C Screening 07/09/2024 Medicare Annual Wellness Visit 07/09/2024 Social Influencers of Health Screening 07/09/2024 Influenza Vaccine (Season Ended) 2024 07/08/2018, 04/11/2008 Diabetes: Blood Sugar Contro l Test (HGBA1C) 01/09/2025 07/09/2024 Diabetes: Annual GFR (Glomerular Filtration Rate) 07/09/2025 07/09/2024 Hypertension/CHF/CAD Annual BMP Blood Test 07/09/2025 07/09/2024 HIB Vaccines Aged Out No longer eligi ble based on patient's age to complete this topic HPV Vaccines Aged Out No longer eligi ble based on patient's age to complete this topic Hepatitis A Vaccines Aged Out No long er eligible based on patient's age to complete this topic IPV Vaccines Aged Out No longer eligi ble based on patient's age to complete this topic MMR Vaccines Aged Out No longer eligi ble based on patient's age to complete this topic Meningococcal ACWY Vaccine Aged Out N o longer eligible based on patient's age to complete this topic Meningococcal B Vaccine Aged Out No l onger eligible based on patient's age to complete this topic RSV Immunization Patients Under 20 months Aged Out No longer eligible b ased on patient's age to complete this topic Varicella Vaccines Aged Out No longer eligible based on patient's age to complete this topic Procedures Procedure Name Priority Date/Time Associated Diagnosis Comments VITAMIN B12 Routine 07/09/2024 6:52 AM EDT [...] diabetes mellitus without complications (CMS/HCC) Polyarthritis, unspecified COMPLETE BLOOD COUNT Routine 07/09/2024 6:52 AM EDT Anemia, unspecified Essential (primary) hypertension Type 2 diabetes mellitus without complications (CMS/HCC) Polyarthritis, unspecified from Last 3 Months Results * (ABNORMAL) Complete blood count (07/09/2024 6:52 AM EDT) [facility] Signature WBC 6.0 4.8 - 10.8 K/mcL LAB HEMETOLOGY METHOD 07/09/2024 9:09 AM [facility] RBC 3.50(L) 4.50 - 5.50 M/mcL LAB HEMETOLOGY METHOD 07/09/2024 9:09 AM [facility] Hemoglobin 11.9(L) 13.5 - 17.5 g/dL LAB HEMETOLOGY METHOD 07/09/2024 9:09 AM [facility] Hematocrit 35.8(L) 42.0 - 54.0 % LAB HEMETOLOGY METHOD 07/09/2024 9:09 AM [facility] MCV 102.6(H) 79.0 - 98.0 FL LAB HEMETOLOGY METHOD 07/09/2024 9:09 AM [facility] MCH 34.1(H) 27.0 - 32.0 pcg LAB HEMETOLOGY METHOD 07/09/2024 9:09 AM [facility] MCHC 33.2 32.0 - 37.0 g/dL LAB HEMETOLOGY METHOD 07/09/2024 9:09 AM EDT [facility] RDW 12.3 11.0 - 15.0 % LAB HEMETOLOGY METHOD 07/09/2024 9:09 AM EDT [facility] Platelets 248 130 - 400 K/mcL LAB HEMETOLOGY METHOD 07/09/2024 9:09 AM EDT [facility] MPV 10.1 7.0 - 11.0 FL LAB HEMETOLOGY METHOD 07/09/2024 9:09 AM EDT [facility] NRBC 0.0 <1.0 % LAB HEMETOLOGY METHOD 07/09/2024 9:09 AM EDT [facility] NRBC Absolute 0.00 <0.10 K/mcL LAB HEMETOLOGY METHOD 07/09/2024 9:09 AM EDT [facility] Blood Venous blood specimen / Unknown Venipuncture / Unknown 07/09/2024 6:52 AM EDT 07/09/2024 8:53 AM EDT us Paz Mcguire MD LAB BLOOD ORDERABLES Fin al Result [facility] [address] [place] [address], * Hemoglobin A1c (07/09/2024 6:52 AM EDT) Hemoglobin A1C 6.3 <6.5 % LAB CHEMISTRY METHOD 07/09/2024 10:45 AM EDT [facility] Mean Bld Glu Estim. 134 mg/dL LAB CHEMISTRY METHOD 07/09/2024 10:45 AM EDT [facility] Blood Venous blood specimen / Unknown Venipuncture / Unknown 07/09/2024 6:52 AM EDT 07/09/2024 8:53 AM EDT us Paz Mcguire MD LAB BLOOD ORDERABLES Fin al Result Performing Organization Address [facility]/ZIP Co de Phone Number [facility] [address] [place] [address], [place] [phone] * (ABNORMAL) Folate (07/09/2024 6:52 AM EDT) Pathologist [facility] Folate >20.0(H) 2.8 - 17.0 ng/ml LAB CHEMISTRY METHOD 07/09/2024 9:57 AM EDT [facility] Blood Venous blood specimen / Unknown Venipuncture / Unknown 07/09/2024 6:52 AM EDT 07/09/2024 8:53 AM EDT Paz Mcguire MD LAB BLOOD ORDERABLES Fin al Result Performing Organization Address [facility] Co de Phone Number [facility] [address] [place] [address], [place] [phone] * (ABNORMAL) Vitamin B12 (07/09/2024 6:52 AM EDT) Pathologist [facility] Vitamin B-12 1,348(H) 250 - 900 pcg/mL LAB CHEMISTRY METHOD 07/09/2024 9:57 AM EDT [facility] Blood Venous blood specimen / Unknown Venipuncture / Unknown 07/09/2024 6:52 AM EDT 07/09/2024 8:53 AM EDT Paz Mcguire MD LAB BLOOD ORDERABLES Fin al Result Performing Organization Address [facility]/ZIP Co de Phone Number [facility] [address] [place] [address], [place] [phone] * (ABNORMAL) Basic metabolic panel (07/09/2024 6:52 AM EDT) Pathologist [facility] Sodium 135 133 - 145 mmol/L LAB CHEMISTRY METHOD [facility] Potassium 4.7 3.5 - 5.5 mmol/L LAB CHEMISTRY METHOD 07/09/2024 9:35 AM [facility] Chloride 103 96 - 110 mmol/L LAB CHEMISTRY METHOD 07/09/2024 9:35 AM [facility] CO2 26 21 - 32 mmol/L LAB CHEMISTRY METHOD 07/09/2024 9:35 AM [facility] Anion Gap 6 3 - 11 LAB CHEMISTRY METHOD 07/09/2024 9:35 AM [facility] Glucose 117(H) 70 - 100 mg/dL LAB CHEMISTRY METHOD 07/09/2024 9:35 AM [facility] BUN 8 5 - 25 mg/dL LAB CHEMISTRY METHOD 07/09/2024 9:35 AM [facility] Creatinine 0.62(L) 0.70 - 1.30 mg/dL LAB CHEMISTRY METHOD 07/09/2024 9:35 AM [facility] eGFR 111 >=60 mL/min/1. 73m2 LAB CHEMISTRY METHOD 07/09/2024 9:35 AM [facility] Comment:Calculation based on the??Chronic Kidney Disease Epidemiology Collaboration (CKD-EPI) equation refit??without adjustment for race. BUN/Creatinine Ratio 12.9 LAB CHEMISTRY METHOD 07/09/2024 9:35 AM [facility] Calcium 9.4 8.5 - 10.5 mg/dL LAB CHEMISTRY METHOD 07/09/2024 9:35 AM [facility] Blood Venous blood specimen / Unknown Venipuncture / Unknown 07/09/2024 6:52 AM EDT 07/09/2024 8:53 AM EDT us Paz Mcguire MD LAB BLOOD ORDERABLES Fin al Result [facility] [address] [place] [address], [place] [phone] from Last 3 Months Insurance * Guarantor: Chandra Ramachandranto Account Type Relation to Patient Date of Phone Billing Address Personal/Family Self 1965 [address] [place] [address] MEDICARE MEDICAID - [place] Care Teams Greaser Operator Relationship Specialty Start Date End Date Paz Mcguire MD [address] [place] [address] PCP - General Family Medicine 07/09/24
--- OUTSIDE RECORDS SUMMARY | 2024-08-20 14:19 | XMS_ITS | Encounter Summary ---
Demographics Address [address] [place] [address] Home Phone Mobile Phone Preferred Language es Marital Status Single Catholic Affiliation Unknown Race Unknown Ethnic Group or Author Organization [facility] Address [address] [place] [address] Care Team Providers Care Sewing Machines Salesperson Name Role Phone Paz Mcguire MD Primary Care Provider + Encounter Details Date Type Department Care Team (Late st Contact Info) Description 07/13/[address] [facility] - Main Lab 299 [facility] [place] [address] Paz Mcguire MD [address] [phone] Anemia, unspecified; Essential (primary) hypertension; Type 2 diabetes mellitus without complications (CMS/HCC V24, CMS/HCC V28) Social History Tobacco Use Types Packs/Day Years Used Date Smoking Tobacco: Never Assessed Sex and Gender Information Value Date Recorded Sex Assigned at Not on file Legal Sex Male 3:09 PM EST Gender Identity Not on file Sexual Orientation Not on file documented as of this encounter Plan of Treatment Not on file documented as of this encounter Visit Diagnoses Diagnosis Anemia, unspecified Essential (primary) hypertension Unspecified essential hypertension Type 2 diabetes mellitus without complications (CMS/HCC V24, CMS/HCC V28) documented in this encounter Care Teams Sewing Machines Salesperson Relationship Specialty Start Date End Date Paz Mcguire MD [address] [place] [address] PCP - General Family Medicine 07/09/24 documented as of this encounter
== END 2024-08-20 13:26 | disposition home or self-care (01) ==
LOC: HO.HMCC 11:51
PROVIDERS: PCP Internal Medicine; Visit Provider Internal Medicine
DX: F10.90 Alcohol use, unspecified, uncomplicated (principal); E11.9 Type 2 diabetes mellitus without complications; D64.9 Anemia, unspecified; F31.9 Bipolar disorder, unspecified; I10 Essential (primary) hypertension; M25.50 Pain in unspecified joint; F17.210 Nicotine dependence, cigarettes, uncomplicated; Z28.21 Immunization not carried out because of patient refusal; R42 Dizziness and giddiness; Z59.00 Homelessness unspecified

== ENCOUNTER → 2024-08-20 11:50 | Outpatient (BNVA) | payer MEDICARE, MEDICAID, SELFPAY | PROVIDERS: PCP Internal Medicine; Visit Provider Internal Medicine | DX: F10.90 Alcohol use, unspecified, uncomplicated (principal); E11.9 Type 2 diabetes mellitus without complications; D64.9 Anemia, unspecified; F31.9 Bipolar disorder, unspecified; I10 Essential (primary) hypertension; M25.50 Pain in unspecified joint; R42 Dizziness and giddiness; F17.210 Nicotine dependence, cigarettes, uncomplicated; Z71.6 Tobacco abuse counseling; Z59.00 Homelessness unspecified | CPT/HCPCS: 96127; 99212 ==

== ENCOUNTER 2024-08-22 07:10 | Outpatient (REF) | payer MEDICARE, MEDICAID, SELFPAY ==
--- OUTSIDE RECORDS SUMMARY | 2024-08-22 07:13 | XMS_ITS | Encounter Summary ---
Demographics Address [address] [place] [address] Home Phone Mobile Phone Preferred Language es Marital Status Single Methodist Affiliation Unknown Race Unknown Ethnic Group or Author Organization [facility] Address [address] [place] [address] Care Team Providers Care Art Manager Name Role Phone Paz Mcguire MD Primary Care Provider + Encounter Details Date Type Department Care Team (Late st Contact Info) Description 07/09/[address] [facility] - Main Lab 299 [facility] [place] [address] Paz Mcguire MD 819 [facility] 1 [place], [place] [phone] Anemia, unspecified; Essential (primary) hypertension; Type 2 [...] Vitamin B12 (07/09/2024 6:52 AM EDT) Pathologist [facility] Vitamin B-12 1,348(H) 250 - 900 pcg/mL LAB CHEMISTRY METHOD 07/09/2024 9:57 AM EDT [facility] Blood Venous blood specimen / Unknown Venipuncture / Unknown 07/09/2024 6:52 AM EDT 07/09/2024 8:53 AM EDT Paz Mcguire MD LAB BLOOD ORDERABLES Fin al Result Performing Organization Address City/[facility]/ZIP Co de Phone Number [facility] [address] [place] [address], [place] [phone] * (ABNORMAL) Folate (07/09/2024 6:52 AM EDT) Pathologist [facility] Folate >20.0(H) 2.8 - 17.0 ng/ml LAB CHEMISTRY METHOD 07/09/2024 9:57 AM EDT [facility] Blood Venous blood specimen / Unknown Venipuncture / Unknown 07/09/2024 6:52 AM EDT 07/09/2024 8:53 AM EDT Paz Mcguire MD LAB BLOOD ORDERABLES Fin al Result [facility] [address] [place] [address], [place] [phone] * Hemoglobin A1c (07/09/2024 6:52 AM EDT) Pathologist [facility] Hemoglobin A1C 6.3 <6.5 % LAB CHEMISTRY METHOD 07/09/2024 10:45 AM T [facility] Mean Bld Glu Estim. 134 mg/dL LAB CHEMISTRY METHOD 07/09/2024 10:45 AM [facility] Blood Venous blood specimen / Unknown Venipuncture / Unknown 07/09/2024 6:52 AM EDT 07/09/2024 8:53 AM EDT us Paz Mcguire MD LAB BLOOD ORDERABLES Fin al Result [facility] [address] [place] [address], * (ABNORMAL) Basic metabolic panel (07/09/2024 6:52 AM EDT) [facility] Sodium 135 133 - 145 mmol/L LAB CHEMISTRY METHOD 07/09/2024 9:35 AM [facility] Potassium 4.7 3.5 - 5.5 mmol/L LAB CHEMISTRY METHOD 07/09/2024 9:35 AM [facility] Chloride 103 96 - 110 mmol/L LAB CHEMISTRY METHOD 07/09/2024 9:35 AM [facility] CO2 26 21 - 32 mmol/L LAB CHEMISTRY METHOD 07/09/2024 9:35 AM [facility] Anion Gap 6 3 - 11 LAB CHEMISTRY METHOD 07/09/2024 9:35 AM [facility] Glucose 117(H) 70 - 100 mg/dL LAB CHEMISTRY METHOD 07/09/2024 9:35 AM [facility] BUN 8 5 - 25 mg/dL LAB CHEMISTRY METHOD 07/09/2024 9:35 AM [facility] Creatinine 0.62(L) 0.70 - 1.30 mg/dL LAB CHEMISTRY METHOD 07/09/2024 9:35 AM EDT [facility] eGFR 111 >=60 mL/min/1. 73m2 LAB CHEMISTRY METHOD 07/09/2024 9:35 AM EDT [facility] Comment:Calculation based on the??Chronic Kidney Disease Epidemiology Collaboration (CKD-EPI) equation refit??without adjustment for race. BUN/Creatinine Ratio 12.9 LAB CHEMISTRY METHOD 07/09/2024 9:35 AM EDT [facility] Calcium 9.4 8.5 - 10.5 mg/dL LAB CHEMISTRY METHOD 07/09/2024 9:35 AM EDT [facility] Blood Venous blood specimen / Unknown Venipuncture / Unknown 07/09/2024 6:52 AM EDT 07/09/2024 8:53 AM EDT us Paz Mcguire MD LAB BLOOD ORDERABLES Fin al Result [facility] [address] [place] [address], * (ABNORMAL) Complete blood count (07/09/2024 6:52 AM EDT) WBC 6.0 4.8 - 10.8 K/mcL LAB HEMETOLOGY METHOD 07/09/2024 9:09 AM EDT [facility] RBC 3.50(L) 4.50 - 5.50 M/mcL LAB HEMETOLOGY METHOD 07/09/2024 9:09 AM EDT [facility] Hemoglobin 11.9(L) 13.5 - 17.5 g/dL LAB HEMETOLOGY METHOD 07/09/2024 9:09 AM EDT [facility] Hematocrit 35.8(L) 42.0 - 54.0 % LAB HEMETOLOGY METHOD 07/09/2024 9:09 AM EDT [facility] MCV 102.6(H) 79.0 - 98.0 FL LAB HEMETOLOGY METHOD 07/09/2024 9:09 AM EDT [facility] MCH 34.1(H) 27.0 - 32.0 pcg LAB HEMETOLOGY METHOD 07/09/2024 9:09 AM EDT [facility] MCHC 33.2 32.0 - 37.0 g/dL LAB HEMETOLOGY METHOD 07/09/2024 9:09 AM EDT [facility] RDW 12.3 11.0 - 15.0 % LAB HEMETOLOGY METHOD 07/09/2024 9:09 AM EDT [facility] Platelets 248 130 - 400 K/mcL LAB HEMETOLOGY METHOD 07/09/2024 9:09 AM EDT [facility] MPV 10.1 7.0 - 11.0 FL LAB HEMETOLOGY METHOD 07/09/2024 9:09 AM EDT [facility] NRBC 0.0 <1.0 % LAB HEMETOLOGY METHOD 07/09/2024 9:09 AM [facility] NRBC Absolute 0.00 <0.10 K/mcL LAB HEMETOLOGY METHOD 07/09/2024 9:09 AM [facility] Blood Venous blood specimen / Unknown Venipuncture / Unknown 07/09/2024 6:52 AM EDT 07/09/2024 8:53 AM EDT us Paz Mcguire MD LAB BLOOD ORDERABLES Fin al Result [facility] [address] [place] [address], documented in this encounter Visit Diagnoses Diagnosis Anemia, unspecified Essential (primary) hypertension Unspecified essential hypertension Type 2 diabetes mellitus without complications (CMS/HCC V24, CMS/HCC V28) Polyarthritis, unspecified documented in this encounter Care Teams Art Manager Relationship Specialty Start Date End Date Paz Mcguire MD [address] [place] [address] PCP - General Family Medicine 07/09/24 documented as of this encounter
--- OUTSIDE RECORDS SUMMARY | 2024-08-22 07:13 | XMS_ITS | Encounter Summary ---
Demographics Address [address] [place] [address] Home Phone Mobile Phone Preferred Language es Marital Status Single Church Affiliation Unknown Race Unknown Ethnic Group or Author Organization [facility] Address [address] [place] [address] Care Team Providers Care Search Strategist Name Role Phone Paz Mcguire MD Primary Care Provider + Encounter Details Date Type Department Care Team (Late st Contact Info) Description 07/13/2024 Lab Requisition [facility] - Main Lab [address] [facility] [place] [address] Paz Mcguire MD [address] [id number] Anemia, unspecified; Essential (primary) hypertension; Type 2 [...] V28) documented in this encounter Care Teams Search Strategist Relationship Specialty Start Date End Date Paz Mcguire MD [address] [place] [address] PCP - General Family Medicine 07/09/24 documented as of this encounter
--- OUTSIDE RECORDS SUMMARY | 2024-08-22 07:13 | XMS_ITS | Clinical Summary ---
Author Organization Unknown Care Team Providers Care Site Safety Representative Name Role Phone MIKAYLA AG, MIRYAM JENNINGS Unavailable Unavailceferino HEARN RN, HAILEY Epps Unavailable TALHA METZ, STEFAN Unavailable Unavailable Payers Payer Name Policy Type Policy Number Effective Date Expira tion Date ON DEMAND MEDICARE - [place] - [place] [id number] [place] [id number] Problems Condition Name Condition Details Condition Category Status Onset Date Resolution Date Last Treatment Date Treating Clinician Comments TYPE 2 DIABETES MELLITUS WITH HYPERGLYCEMI A Active 2023-05 00:00: 00 BIPOLAR DISORDER, UNSPECIFIED Active 07-08 00:00: 00 ESSENTIAL (PRIMARY) HYPERTENSION Active 2023-05 [...] tablet,coty yed release 2023-05 00:00: 00 Yes [id number] 1 tablet 2 TIMES DAILY 1 tablet 2 TIMES DAILY (route: oral) Med Classific ation: Chemical Dependenc y, Agents to Treat acetaminoph en 325 mg capsule 2023-05 00:00: 00 Yes [id number] 2 capsule 3 TIMES DAILY 2 capsule 3 TIMES DAILY (route: oral) Med Classific ation: Analgesic , Anti-infl ammatory or Antipyret ic escitalopra m 20 mg tablet 2023-05 00:00: 00 Yes [id number] 1 tablet EVERY AM 1 tablet EVERY AM (route: oral) Med Classific ation: Central Nervous System Agents folic acid 1 mg tablet 2023-05 00:00: 00 Yes [id number] 1 tablet EVERY AM 1 tablet EVERY AM (route: oral) Med Classific ation: Electroly te Balance-N utritiona l Products glipizide 10 mg tablet 2023-05 00:00: 00 Yes [id number] 1 tablet EVERY AM 1 tablet EVERY AM (route: oral) Med Classific ation: Endocrine lisinopril 5 mg tablet 2023-05 00:00: 00 Yes [id number] 1 tablet EVERY AM 1 tablet EVERY AM (route: oral) Med Classific ation: Cardiovas cular Therapy Agents metformin 500 mg tablet 2023-05 00:00: 00 Yes [id number] 2 tablet EVERY AM 2 tablet EVERY AM (route: oral) Med Classific ation: Endocrine Multivitami n 50 Plus tablet 2023-05 00:00: 00 Yes [id number] 1 tablet EVERY AM 1 tablet EVERY AM (route: oral) Med Classific ation: Electroly te Balance-N utritiona l Products pioglitazon e 45 mg tablet 2023-05 00:00: 00 Yes [id number] 1 tablet EVERY AM 1 tablet EVERY AM (route: oral) Med Classific ation: Endocrine quetiapine 25 mg tablet 2023-05 00:00: 00 Yes [id number] 1 tablet BEDTIME 1 tablet BEDTIME (route: oral) Med Classific ation: Central Nervous System Agents simvastatin 10 mg tablet 2023-05 00:00: 00 Yes [id number] 1 tablet EVERY PM 1 tablet EVERY PM (route: oral) Med Classific ation: Cardiovas cular Therapy Agents thiamine HCl (vitamin B1) 50 mg tablet 2023-05 00:00: 00 Yes [id number] 1 tablet EVERY AM 1 tablet EVERY AM (route: oral) Med Classific ation: Electroly te Balance-N utritiona l Products Vital Signs Vital Name Observation Time Observation Value Commen ts Temperature 2024-08-19 10:54:00.000 97.3 [degF] Temperature 2024-08-16 12:48:00.000 97.2 [degF] Temperature 2024-08-14 11:33:00.000 96.9 [degF] Temperature 2024-08-12 11:10:00.000 97.8 [degF] Temperature 2024-08-09 10:52:00.000 97.4 [degF] Temperature 2024-08-07 10:50:00.000 98.2 [degF] Temperature 2024-08-05 11:31:00.000 97.2 [degF] Pulse 2024-08-19 10:54:00.000 72 /min Pulse 2024-08-16 12:48:00.000 80 /min Pulse 2024-08-14 11:32:00.000 84 /min Pulse 2024-08-12 11:10:00.000 80 /min Pulse 2024-08-09 10:52:00.000 88 /min Pulse 2024-08-07 10:50:00.000 88 /min Pulse 2024-08-05 11:31:00.000 72 /min Respirations 2024-08-19 10:54:00.000 16 /min Respirations 2024-08-16 12:48:00.000 16 /min Respirations 2024-08-14 11:32:00.000 16 /min Respirations 2024-08-12 11:10:00.000 16 /min Respirations 2024-08-09 10:52:00.000 16 /min Respirations 2024-08-07 10:50:00.000 16 /min Respirations 2024-08-05 11:31:00.000 16 /min Systolic Blood Pressure 2024-08-19 10:54:00.000 132 mm [Hg] Systolic Blood Pressure 2024-08-16 12:48:00.000 128 mm [Hg] Systolic Blood Pressure 2024-08-14 11:32:00.000 126 mm [Hg] Systolic Blood Pressure 2024-08-12 11:10:00.000 132 mm [Hg] Systolic Blood Pressure 2024-08-09 10:52:00.000 125 mm [Hg] Systolic Blood Pressure 2024-08-07 10:50:00.000 111 mm [Hg] Systolic Blood Pressure 2024-08-05 11:31:00.000 128 mm [Hg] Diastolic Blood Pressure 2024-08-19 10:54:00.000 70 mm [Hg] Diastolic Blood Pressure 2024-08-16 12:48:00.000 74 mm [Hg] Diastolic Blood Pressure 2024-08-14 11:32:00.000 74 mm [Hg] Diastolic Blood Pressure 2024-08-12 11:10:00.000 70 mm [Hg] Diastolic Blood Pressure 2024-08-09 10:52:00.000 84 mm [Hg] Diastolic Blood Pressure 2024-08-07 10:50:00.000 77 mm [Hg] Diastolic Blood Pressure 2024-08-05 11:31:00.000 74 mm [Hg] Plan of Treatment Planned Activity [...] OF PATIENTS MENTAL/BEHAVIORAL STATUS, ASSESS VITAL SIGNS WEEKLY AND PRN ALLOW 2 PRNS FOR MEDICATION MANAGEMENT. [code = SKILLED NURSE TO O/A OF PATIENTS MENTAL/BEHAVIORAL STATUS, ASSESS VITAL SIGNS WEEKLY AND PRN ALLOW 2 PRNS FOR MEDICATION MANAGEMENT.] Future Scheduled Test MEDICATION S WILL BE HELD AND STORED IN LOCKBOX [code = MEDICATIONS WILL BE HELD AND STORED IN LOCKBOX] Future Scheduled Test SKILLED NU RSE FOR O/A OF GENERAL HEALTH STATUS OF PAIN, CARDIAC, RESPIRATORY, GASTROINTESTINAL, GENITOURINARY, SKIN, NEUROLOGIC, ENDOCRINE SYSTEMS TO IDENTIFY CHANGES ASSOCIATED WITH EXACERBATION FOR EARLY INTERVENTION OF COMPLICATIONS WEEKLY. [code = SKILLED NURSE FOR O/A OF GENERAL HEALTH STATUS OF PAIN, CARDIAC, RESPIRATORY, GASTROINTESTINAL, GENITOURINARY, SKIN, NEUROLOGIC, ENDOCRINE SYSTEMS TO IDENTIFY CHANGES ASSOCIATED WITH EXACERBATION FOR EARLY INTERVENTION OF COMPLICATIONS WEEKLY.] Future Scheduled Test SKILLED NU RSE TO ADMINISTER MEDICATIONS AT EACH SN VISIT AND PRE-POUR HS MEDICATIONS AT EACH SN VISIT PER MEDICATION LIST. [code = SKILLED NURSE TO ADMINISTER MEDICATIONS AT EACH SN VISIT AND PRE-POUR HS MEDICATIONS AT EACH SN VISIT PER MEDICATION LIST.] Future Scheduled Test SKILLED NU RSE FOR O/A AND SKILLED TEACHING OF COPING SKILLS TO MANAGE ANXIETY AND MAINTAIN SAFETY. [code = SKILLED NURSE FOR O/A AND SKILLED TEACHING OF COPING SKILLS TO MANAGE ANXIETY AND MAINTAIN SAFETY.] Future Scheduled Test SKILLED NU RSE FOR O/A AND SKILLED TEACHING RELATED TO MANAGEMENT OF DEPRESSIVE SYMPTOMS AND/OR DEPRESSION. SN TO REPORT SIGNIFICANT CHANGE IN DEPRESSIVE SYMPTOMS TO CLINICAL PROVIDER FOR EARLY INTERVENTION. [code = SKILLED NURSE FOR O/A AND SKILLED TEACHING RELATED TO MANAGEMENT OF DEPRESSIVE SYMPTOMS AND/OR DEPRESSION. SN TO REPORT SIGNIFICANT CHANGE IN DEPRESSIVE SYMPTOMS TO CLINICAL PROVIDER FOR EARLY INTERVENTION.] Future Scheduled Test SKILLED NU RSE TO [...] PROBLEMS.] Future Scheduled Test SKILLED NU RSE FOR O/A OF CLIENT'S SOCIAL ISOLATION AND PROVIDE ASSISTANCE TO CLIENT IN DEVELOPMENT OF PLANNED ACTIVITIES [code = SKILLED NURSE FOR O/A OF CLIENT'S SOCIAL ISOLATION AND PROVIDE ASSISTANCE TO CLIENT IN DEVELOPMENT OF PLANNED ACTIVITIES] Future Scheduled Test SKILLED NU RSE TO [...] ACCESS COMMUNITY RESOURCES AND PSYCHOSOCIAL SUPPORT SERVICES.] Future Scheduled Test SKILLED NU RSE WILL MAINTAIN SITUATIONAL AWARENESS FOR SAFETY AND WILL NOTIFY CLINICAL SALES/MARKETING AND PHYSICIAN/PROVIDER WITH ANY CHANGE IN CONDITION. [code = SKILLED NURSE WILL MAINTAIN SITUATIONAL AWARENESS FOR SAFETY AND WILL NOTIFY CLINICAL SALES/MARKETING AND PHYSICIAN/PROVIDER WITH ANY CHANGE IN CONDITION.] Goal Patient Goal - P ATIENT SAYS WANTS TO FEELING GOOD AND HAVE HIS OWN APARTMENT Goal 2024-05-29 Patient Goal - P ATIENT VERBALIZED GOAL OF FEELING BETTER Goal 2024-07-29 Patient Goal - P ATIENT SAYS WANTS TO FEELING GOOD AND HAVE HIS OWN APARTMENT Goal Provider Goal - A PLAN OF CARE WILL BE ESTABLISHED THAT MEETS PATIENT'S CUSTODIAL NEEDS AND INCLUDES PATIENT GOAL FOR HOME HEALTH. Goal Provider Goal - ALTERED MENTAL/BEHAVIORAL STATUS WILL BE IDENTIFIED PROMPTLY AND INTERVENTION INITIATED QUICKLY TO MINIMIZE ASSOCIATED RISKS THROUGHOUT CERTIFICATION PERIOD. Goal Provider Goal - MEDICATION WILL BE STORED IN LOCKBOX FOR SAFETY. Goal Provider Goal - CHANGE IN GENERAL HEALTH STATUS WILL BE IDENTIFIED AND REPORTED TO PHYSICIAN FOR PROMPT INTERVENTION TO MINIMIZE ASSOCIATED RISKS THROUGHOUT CERTIFICATION PERIOD. Goal Provider Goal - PATIENT WILL COMPLY WITH MEDICATION WHEN SKILLED NURSE ADMINISTERS AND PRE-POURS MEDICATION THROUGHOUT CERTIFICATION PERIOD. Goal Provider Goal - PATIENT WILL BE ABLE TO PERFORM DAILY FUNCTIONS AND HAVE OPTIMAL IMPROVEMENT IN LEVEL OF ANXIETY THROUGHOUT CERTIFICATION PERIOD. Goal Provider Goal - PATIENT WILL REMAIN SAFE WITHOUT DECOMPENSATION IN DEPRESSIVE CONDITION, WHILE MAINTAINING OPTIMAL LEVEL OF MENTAL HEALTH AND WELL BEING THROUGHOUT CERTIFICATION PERIOD. Goal Provider Goal - PATIENT/CAREGIVER WILL VERBALIZE UNDERSTANDING OF EDUCATION PROVIDED ON MEDICATIONS BY THE END OF THE CERTIFICATION PERIOD. Goal Provider Goal - PATIENT WILL DEMONSTRATE AN INCREASED INTEREST IN SOCIALIZATION AND ACTIVITIES BY THE END OF THE CERTIFICATION PERIOD. Goal Provider Goal - PSYCHOSOCIAL NEEDS WILL BE IDENTIFIED AND PLAN IMPLEMENTED TO MINIMIZE RISK THROUGHOUT CERTIFICATION PERIOD. Goal Provider Goal - PATIENT WILL REMAIN SAFE IN THE COMMUNITY AND WILL BE FREE OF DANGER TO SELF AND OTHERS THROUGHOUT THE CERTIFICATION PERIOD. Encounters Start Date/Time End Date/Time Encounter Type Admission Type Attending [facility] Care Department Encounter ID Discharge Date Discharge Status Discharge Condition Discharge Reason Percent Goals Met 2024-04-04 00:00:00 2024-09-30 00:00:00 Outpatient RECERTIFIC ATION SETFAN [facility] [id number] .00
--- OUTSIDE RECORDS SUMMARY | 2024-08-22 07:13 | XMS_ITS | Clinical Summary ---
Author Organization Unknown Care Team Providers Care Golf Ball Trimmer Name Role Phone MIKAYLA AG, MIRYAM JENNINGS Unavailable Unavailceferino HEARN RN, HAILEY Epps Unavailable TALHA METZ, STEFAN Unavailable Unavailable Payers Payer Name Policy Type Policy Number Effective Date Expira tion Date ON DEMAND MEDICARE - [place] [id number] [place] [id number] Problems Condition Name Condition Details Condition Category [...] tablet,coty yed release 2023-05 00:00: 00 Yes [id number] 1 tablet 2 TIMES DAILY 1 tablet 2 TIMES DAILY (route: oral) Med Classific ation: Chemical Dependenc y, Agents to Treat acetaminoph en 325 mg capsule 2023-05 00:00: 00 Yes [id number] 2 capsule 3 TIMES DAILY 2 capsule 3 TIMES DAILY (route: oral) Med Classific ation: Analgesic , Anti-infl ammatory or Antipyret ic escitalopra m 20 mg tablet 2023-05 00:00: 00 Yes [id number] 1 tablet EVERY AM 1 tablet EVERY AM (route: oral) Med Classific ation: Central Nervous System Agents folic acid 1 mg tablet 2023-05 00:00: 00 Yes [id number] 1 tablet EVERY AM 1 tablet EVERY AM (route: oral) Med Classific ation: Electroly te Balance-N utritiona l Products glipizide 10 mg tablet 2023-05 00:00: 00 Yes [id number] 1 tablet EVERY AM 1 tablet EVERY AM (route: oral) Med Classific ation: Endocrine lisinopril 5 mg tablet 2023-05 00:00: 00 Yes [id number] 1 tablet EVERY AM 1 tablet EVERY AM (route: oral) Med Classific ation: Cardiovas cular Therapy Agents metformin 500 mg tablet 2023-05 00:00: 00 Yes [id number] 2 tablet EVERY AM 2 tablet EVERY AM (route: oral) Med Classific ation: Endocrine Multivitami n 50 Plus tablet 2023-05 00:00: 00 Yes [id number] 1 tablet EVERY AM 1 tablet EVERY AM (route: oral) Med Classific ation: Electroly te Balance-N utritiona l Products pioglitazon e 45 mg tablet 2023-05 00:00: 00 Yes [id number] 1 tablet EVERY AM 1 tablet EVERY AM (route: oral) Med Classific ation: Endocrine quetiapine 25 mg tablet 2023-05 00:00: 00 Yes [id number] 1 tablet BEDTIME 1 tablet BEDTIME (route: oral) Med Classific ation: Central Nervous System Agents simvastatin 10 mg tablet 2023-05 00:00: 00 Yes [id number] 1 tablet EVERY PM 1 tablet EVERY PM (route: oral) Med Classific ation: Cardiovas cular Therapy Agents thiamine HCl (vitamin B1) 50 mg tablet 2023-05 00:00: 00 Yes [id number] 1 tablet EVERY AM 1 tablet EVERY [...] AWARENESS FOR SAFETY AND WILL NOTIFY CLINICAL PLUG DRILL OPERATOR AND PHYSICIAN/PROVIDER WITH ANY CHANGE IN CONDITION. [code = SKILLED NURSE WILL MAINTAIN SITUATIONAL AWARENESS FOR SAFETY AND WILL NOTIFY CLINICAL PLUG DRILL OPERATOR AND PHYSICIAN/PROVIDER WITH ANY CHANGE IN [...] End Date/Time Encounter Type Admission Type Attending [facility] Care [facility] Care Department Encounter ID Discharge Date Discharge Status Discharge Condition Discharge Reason Percent Goals Met 2024-04-04 00:00:00 2024-09-30 00:00:00 Outpatient RECERTIFIC ATION STEFAN [facility] [id number] .00
[2024-08-22 07:36] LABS: MANUAL DIFF FLAG NO
[2024-08-22 07:46] LABS: Basophils Percent Auto 0.5 % (0-2); Eosinophils Absolute Auto 0.1 X10*3/uL (0.0-0.4); Eosinophils Percent Auto 2.3 % (0-4); Hematocrit 36.8 % (42.0-52.0); Hemoglobin 12.7 g/dl (14.0-18.0); Imm Gran Abs Auto 0.01 X10*3/uL (0.00-0.03); Imm Gran Pct Auto 0.2 % (0.0-0.4); Lymphocytes Absolute Auto 2.1 X10*3/uL (1.2-4.9); Lymphocytes Percent Auto 35.1 % (20-40); Mean Corpuscular HGB Conc 34.5 g/dl (31.0-36.0); Mean Corpuscular Hemoglobin 32.9 pg (27.0-33.0); Mean Corpuscular Volume 95.3 fL (80.0-98.0); Mean Platelet Volume 9.6 fL (9.4-12.4); Monocytes Absolute Auto 0.6 X10*3/uL (0.1-1.2); Monocytes Percent Auto 9.8 % (2-11); Neutrophils Absolute Auto 3.1 x10*3/uL (2.0-8.3); Neutrophils Percent Auto 52.1 % (45-73); Platelet Count 165 X10*3/uL (160-400); Red Blood Count 3.86 X10*6/uL (4.60-5.80); Red Cell Distribution Width 12.2 % (11.0-16.0)
[2024-08-22 07:50] LABS: Estimated Average Glucose 134 mg/dL; Hemoglobin A1C 152.7515 umol/L; Hemoglobin A1c % 6.3 % (<6.0); Total Hemoglobin (HGBA1C) 3352.5845 umol/L
[2024-08-22 08:25] LABS: Alanine Aminotransferase 22 U/L (0-40); Albumin Level 4.2 g/dL (3.5-5.0); Alkaline Phosphatase 93 U/L (39-117); Anion Gap 10 (12-20); Aspartate Amino Transferase 24 U/L (5-37); Bilirubin Total 0.6 mg/dL (0.0-1.0); Blood Urea Nitrogen 7 mg/dL (9-16); Calcium 9.8 mg/dL (8.4-10.2); Carbon Dioxide 28 mmol/L (22-29); Chloride 105 mmol/L (96-108); Cholesterol 116 mg/dL (<200); Estimated Glomerular Filt Rate > 60; Glucose Fasting 152 mg/dL (60-99); HDL Cholesterol 49 mg/dL (>40); LDL Cholesterol Calculated 51 mg/dL (<100); Potassium 4.4 mmol/L (3.3-5.1); Sodium 139 mmol/L (135-145); Total Protein 7.5 g/dL (6.5-8.0); Triglycerides 80 mg/dL (<150)
[2024-08-22 08:41] LABS: Vitamin D 25-OH Total 26.6 ng/mL (>30)
[2024-08-22 08:48] LABS: Folate 15.3 ng/mL (> or = 4.0); Vitamin B12 836 pg/mL (200-900)
[2024-08-29 18:02] LABS: Vitamin B1 45 nmol/L (8-30)
== END 2024-08-22 07:11 | disposition home or self-care (01) ==
LOC: HO.LAB 07:10
PROVIDERS: PCP Internal Medicine; Visit Provider Internal Medicine
DX: E11.9 Type 2 diabetes mellitus without complications (principal); D64.9 Anemia, unspecified; F31.9 Bipolar disorder, unspecified; I10 Essential (primary) hypertension; M25.50 Pain in unspecified joint
CPT/HCPCS: 36415; 80053; 80061; 82306; 82607; 82746; 83036; 84425; 85025

== ENCOUNTER 2024-08-26 14:13 | Outpatient (REF) | payer MEDICARE, MEDICAID, SELFPAY ==
[2024-08-26 14:49] LABS: Creatinine Urine 76.28 mg/dL; Microalbum/Creatinine Ratio Ur 6.5 ug/mg cr (<30)
--- OUTSIDE RECORDS SUMMARY | 2024-08-26 17:01 | XMS_ITS | Encounter Summary ---
Demographics Address [address] [place] [address] Home Phone Mobile Phone Preferred Language es Marital Status Single Spiritism Affiliation Unknown Race Unknown Ethnic Group or Author Organization [facility] Address [address] [place] [address] Care Team Providers Care Yard Switch Operator Name Role Phone Paz Mcguire MD Primary Care Provider + Encounter Details Date Type Department Care Team (Late st Contact Info) Description 07/09/2024 Lab Requisition [facility] - Main Lab [address] [facility] [place] [address] Paz Mcguire MD [address] [facility] [address] [place], [place] [id number] Anemia, unspecified; Essential (primary) hypertension; Type 2 [...] Vitamin B12 (07/09/2024 6:52 AM EDT) Pathologist [facility] Vitamin B-12 1,348(H) 250 - 900 pcg/mL LAB CHEMISTRY METHOD 07/09/2024 9:57 AM EDT [facility] Blood Venous blood specimen / Unknown Venipuncture / Unknown 07/09/2024 6:52 AM EDT 07/09/2024 8:53 AM EDT Paz Mcguire MD LAB BLOOD ORDERABLES Fin al Result Performing Organization Address City/[facility]/ZIP Co de Phone Number [facility] [address] [place] [address], [place] [phone] * (ABNORMAL) Folate (07/09/2024 6:52 AM EDT) Pathologist [facility] Folate >20.0(H) 2.8 - 17.0 ng/ml LAB CHEMISTRY METHOD 07/09/2024 9:57 AM EDT [facility] Blood Venous blood specimen / Unknown Venipuncture / Unknown 07/09/2024 6:52 AM EDT 07/09/2024 8:53 AM EDT Paz Mcguire MD LAB BLOOD ORDERABLES Fin al Result [facility] [address] [place] [address], [place] [phone] * Hemoglobin A1c (07/09/2024 6:52 AM EDT) Pathologist [facility] [place] Hemoglobin A1C 6.3 <6.5 % LAB CHEMISTRY METHOD 07/09/2024 10:45 AM T [facility] Mean Bld Glu Estim. 134 mg/dL LAB CHEMISTRY METHOD 07/09/2024 10:45 AM [facility] Blood Venous blood specimen / Unknown Venipuncture / Unknown 07/09/2024 6:52 AM EDT 07/09/2024 8:53 AM EDT us Paz Mcguire MD LAB BLOOD ORDERABLES Fin al Result [facility] [address] [place] [address], * (ABNORMAL) Basic metabolic panel (07/09/2024 6:52 AM EDT) [facility] Sodium 135 133 - 145 mmol/L LAB CHEMISTRY METHOD 07/09/2024 9:35 AM [facility] Potassium 4.7 3.5 - 5.5 mmol/L LAB CHEMISTRY METHOD 07/09/2024 9:35 AM [facility] Chloride 103 96 - 110 mmol/L LAB CHEMISTRY METHOD 07/09/2024 9:35 AM [facility] CO2 26 21 - 32 mmol/L LAB CHEMISTRY METHOD 07/09/2024 9:35 AM [facility] Anion Gap 6 3 - 11 LAB CHEMISTRY METHOD 07/09/2024 9:35 AM [facility] Glucose 117(H) 70 - 100 mg/dL LAB CHEMISTRY METHOD 07/09/2024 9:35 AM [facility] BUN 8 5 - 25 mg/dL LAB CHEMISTRY METHOD 07/09/2024 9:35 AM [facility] Creatinine 0.62(L) 0.70 - 1.30 mg/dL LAB CHEMISTRY METHOD 07/09/2024 9:35 AM EDT [facility] eGFR 111 >=60 mL/min/1. 73m2 LAB CHEMISTRY METHOD 07/09/2024 9:35 AM EDT [facility] Comment:Calculation based on the??Chronic Kidney Disease Epidemiology Collaboration (CKD-EPI) equation refit??without adjustment for race. BUN/Creatinine Ratio 12.9 LAB CHEMISTRY METHOD 07/09/2024 9:35 AM EDT [facility] Calcium 9.4 8.5 - 10.5 mg/dL LAB CHEMISTRY METHOD 07/09/2024 9:35 AM EDT [facility] Blood Venous blood specimen / Unknown Venipuncture / Unknown 07/09/2024 6:52 AM EDT 07/09/2024 8:53 AM EDT us Paz Mcguire MD LAB BLOOD ORDERABLES Fin al Result [facility] [address] [place] [address], * (ABNORMAL) Complete blood count (07/09/2024 6:52 AM EDT) WBC 6.0 4.8 - 10.8 K/mcL LAB HEMETOLOGY METHOD 07/09/2024 9:09 AM EDT [facility] RBC 3.50(L) 4.50 - 5.50 M/mcL LAB HEMETOLOGY METHOD 07/09/2024 9:09 AM EDT [facility] Hemoglobin 11.9(L) 13.5 - 17.5 g/dL LAB HEMETOLOGY METHOD 07/09/2024 9:09 AM EDT [facility] Hematocrit 35.8(L) 42.0 - 54.0 % LAB HEMETOLOGY METHOD 07/09/2024 9:09 AM EDT [facility] MCV 102.6(H) 79.0 - 98.0 FL LAB HEMETOLOGY METHOD 07/09/2024 9:09 AM EDT [facility] MCH 34.1(H) 27.0 - 32.0 pcg LAB HEMETOLOGY METHOD 07/09/2024 9:09 AM EDT [facility] MCHC 33.2 32.0 - 37.0 g/dL LAB HEMETOLOGY METHOD 07/09/2024 9:09 AM EDT [facility] RDW 12.3 11.0 - 15.0 % LAB HEMETOLOGY METHOD 07/09/2024 9:09 AM EDT [facility] Platelets 248 130 - 400 K/mcL LAB HEMETOLOGY METHOD 07/09/2024 9:09 AM EDT [facility] MPV 10.1 7.0 - 11.0 FL LAB HEMETOLOGY METHOD 07/09/2024 9:09 AM EDT [facility] NRBC 0.0 <1.0 % LAB HEMETOLOGY METHOD 07/09/2024 9:09 AM [facility] NRBC Absolute 0.00 <0.10 K/mcL LAB HEMETOLOGY METHOD 07/09/2024 9:09 AM [facility] Blood Venous blood specimen / Unknown Venipuncture / Unknown 07/09/2024 6:52 AM EDT 07/09/2024 8:53 AM EDT us Paz Mcguire MD LAB BLOOD ORDERABLES Fin al Result [facility] [address] [place] [address], documented in this encounter Visit Diagnoses Diagnosis Anemia, unspecified Essential (primary) hypertension Unspecified essential hypertension Type 2 diabetes mellitus without complications (CMS/HCC V24, CMS/HCC V28) Polyarthritis, unspecified documented in this encounter Care Teams Yard Switch Operator Relationship Specialty Start Date End Date Paz Mcguire MD [address] [place] [address] PCP - General Family Medicine 07/09/24 documented as of this encounter
--- OUTSIDE RECORDS SUMMARY | 2024-08-26 17:01 | XMS_ITS | Clinical Summary ---
Author Organization Unknown Care Team Providers Care Child Psychology Teacher Name Role Phone MIKAYLA AG, MIRYAM JENNINGS Unavailable Unavailceferino HEARN RN, HAILEY Epps Unavailable TALHA METZ, STEFAN Unavailable Unavailable Payers Payer Name Policy Type Policy Number Effective Date Expira tion Date ON DEMAND MEDICARE - [place] [id number] [place] [id number] Problems Condition Name Condition Details Condition Category [...] tablet,coty yed release 2023-05 00:00: 00 Yes [id number] 1 tablet 2 TIMES DAILY 1 tablet 2 TIMES DAILY (route: oral) Med Classific ation: Chemical Dependenc y, Agents to Treat acetaminoph en 325 mg capsule 2023-05 00:00: 00 Yes [id number] 2 capsule 3 TIMES DAILY 2 capsule 3 TIMES DAILY (route: oral) Med Classific ation: Analgesic , Anti-infl ammatory or Antipyret ic escitalopra m 20 mg tablet 2023-05 00:00: 00 Yes [id number] 1 tablet EVERY AM 1 tablet EVERY AM (route: oral) Med Classific ation: Central Nervous System Agents folic acid 1 mg tablet 2023-05 00:00: 00 Yes [id number] 1 tablet EVERY AM 1 tablet EVERY AM (route: oral) Med Classific ation: Electroly te Balance-N utritiona l Products glipizide 10 mg tablet 2023-05 00:00: 00 Yes [id number] 1 tablet EVERY AM 1 tablet EVERY AM (route: oral) Med Classific ation: Endocrine lisinopril 5 mg tablet 2023-05 00:00: 00 Yes [id number] 1 tablet EVERY AM 1 tablet EVERY AM (route: oral) Med Classific ation: Cardiovas cular Therapy Agents metformin 500 mg tablet 2023-05 00:00: 00 Yes [id number] 2 tablet EVERY AM 2 tablet EVERY AM (route: oral) Med Classific ation: Endocrine Multivitami n 50 Plus tablet 2023-05 00:00: 00 Yes [id number] 1 tablet EVERY AM 1 tablet EVERY AM (route: oral) Med Classific ation: Electroly te Balance-N utritiona l Products pioglitazon e 45 mg tablet 2023-05 00:00: 00 Yes [id number] 1 tablet EVERY AM 1 tablet EVERY AM (route: oral) Med Classific ation: Endocrine quetiapine 25 mg tablet 2023-05 00:00: 00 Yes [id number] 1 tablet BEDTIME 1 tablet BEDTIME (route: oral) Med Classific ation: Central Nervous System Agents simvastatin 10 mg tablet 2023-05 00:00: 00 Yes [id number] 1 tablet EVERY PM 1 tablet EVERY PM (route: oral) Med Classific ation: Cardiovas cular Therapy Agents thiamine HCl (vitamin B1) 50 mg tablet 2023-05 00:00: 00 Yes [id number] 1 tablet EVERY AM 1 tablet EVERY AM (route: oral) Med Classific ation: Electroly te Balance-N utritiona l Products Vital Signs Vital Name Observation Time Observation Value Commen ts Temperature 2024-08-23 12:18:00.000 97.2 [degF] Temperature 2024-08-21 08:24:00.000 97.7 [degF] Temperature 2024-08-19 10:54:00.000 97.3 [degF] Temperature 2024-08-16 12:48:00.000 97.2 [degF] Temperature 2024-08-14 11:33:00.000 96.9 [degF] Temperature 2024-08-12 11:10:00.000 97.8 [degF] Temperature 2024-08-09 10:52:00.000 97.4 [degF] Temperature 2024-08-07 10:50:00.000 98.2 [degF] Temperature 2024-08-05 11:31:00.000 97.2 [degF] Pulse 2024-08-23 12:18:00.000 76 /min Pulse 2024-08-21 08:24:00.000 78 /min Pulse 2024-08-19 10:54:00.000 72 /min Pulse 2024-08-16 12:48:00.000 80 /min Pulse 2024-08-14 11:32:00.000 84 /min Pulse 2024-08-12 11:10:00.000 80 /min Pulse 2024-08-09 10:52:00.000 88 /min Pulse 2024-08-07 10:50:00.000 88 /min Pulse 2024-08-05 11:31:00.000 72 /min Respirations 2024-08-23 12:18:00.000 16 /min Respirations 2024-08-21 08:24:00.000 18 /min Respirations 2024-08-19 10:54:00.000 16 /min Respirations 2024-08-16 12:48:00.000 16 /min Respirations 2024-08-14 11:32:00.000 16 /min Respirations 2024-08-12 11:10:00.000 16 /min Respirations 2024-08-09 10:52:00.000 16 /min Respirations 2024-08-07 10:50:00.000 16 /min Respirations 2024-08-05 11:31:00.000 16 /min Systolic Blood Pressure 2024-08-23 12:18:00.000 128 mm [Hg] Systolic Blood Pressure 2024-08-21 08:24:00.000 112 mm [Hg] Systolic Blood Pressure 2024-08-19 10:54:00.000 132 mm [Hg] Systolic Blood Pressure 2024-08-16 12:48:00.000 128 mm [Hg] Systolic Blood Pressure 2024-08-14 11:32:00.000 126 mm [Hg] Systolic Blood Pressure 2024-08-12 11:10:00.000 132 mm [Hg] Systolic Blood Pressure 2024-08-09 10:52:00.000 125 mm [Hg] Systolic Blood Pressure 2024-08-07 10:50:00.000 111 mm [Hg] Systolic Blood Pressure 2024-08-05 11:31:00.000 128 mm [Hg] Diastolic Blood Pressure 2024-08-23 12:18:00.000 70 mm [Hg] Diastolic Blood Pressure 2024-08-21 08:24:00.000 75 mm [Hg] Diastolic Blood Pressure 2024-08-19 10:54:00.000 [...] AWARENESS FOR SAFETY AND WILL NOTIFY CLINICAL GAS ENGINE OPERATOR GENERATORS AND PHYSICIAN/PROVIDER WITH ANY CHANGE IN CONDITION. [code = SKILLED NURSE WILL MAINTAIN SITUATIONAL AWARENESS FOR SAFETY AND WILL NOTIFY CLINICAL GAS ENGINE OPERATOR GENERATORS AND PHYSICIAN/PROVIDER WITH ANY CHANGE IN CONDITION.] [...] SELF AND OTHERS THROUGHOUT THE CERTIFICATION PERIOD. Progress Notes Progress Notes <paragraph>[Visit Date: 2024 by REGIS PAREDES RN]:</paragraph><paragraph>SN COULD NOT ADMINISTER AM MEDS DUE TO NOT HAVING RIGHT LOCKBOX AMEZCUA. CHARGEMASTER ANALYST NOTIFIED AND WILL COME OVER AND ADMINISTER LATER</paragraph> Encounters Start Date/Time End Date/Time Encounter Type Admission Type Attending [facility] Care Department Encounter ID Discharge Date Discharge Status Discharge Condition Discharge Reason Percent Goals Met 2024-04-04 00:00:00 2024-09-30 00:00:00 Outpatient RECERTIFIC ATSTEFAN EATON [facility] [id number] 7.41
--- OUTSIDE RECORDS SUMMARY | 2024-08-26 17:01 | XMS_ITS | Encounter Summary ---
Demographics Address [address] [place] [address] Home Phone Mobile Phone Preferred Language es Marital Status Single Episcopalian Affiliation Unknown Race Unknown Ethnic Group or Author Organization [facility] Address [address] [place] [address] Care Team Providers Care Contractor Buyer Name Role Phone Paz Mcguire MD Primary Care Provider + Encounter Details Date Type Department Care Team (Late st Contact Info) Description 07/13/2024 Lab Requisition [facility] [address] [facility] [place] [address] Paz Mcguire MD [address] [id number] Anemia, unspecified; Essential (primary) hypertension; Type 2 [...] V28) documented in this encounter Care Teams Contractor Buyer Relationship Specialty Start Date End Date Pza Mcguire MD [address] [place] [address] PCP - General Family Medicine 07/09/24 documented as of this encounter
--- OUTSIDE RECORDS SUMMARY | 2024-08-26 17:01 | XMS_ITS | Clinical Summary ---
Demographics Address [address] [place] [address] Home Phone Mobile Phone Preferred Language es Marital Status Single Yazidism Affiliation Unknown Race Unknown Ethnic Group or Author Organization [address] [facility] Address [address] [place] [address] Phone Care Team Providers Care Internet Media Planner Name Role Phone Paz Mcguire MD Primary Care Provider + Encounters Date Type Department Care Team Description 07/13/2024 Lab Requisition [facility] Lab [address] [place] [phone] Paz Mcguire MD Anemia, unspecified; Essential (primary) hypertension; Type 2 diabetes mellitus without complications (CMS/HCC V24, CMS/HCC V28) 07/09/2024 Lab Requisition [facility] Lab [address] [place] [phone] Paz Mcguire MD Anemia, unspecified; Essential (primary) [...] Complete blood count (07/09/2024 6:52 AM EDT) [facility] Signature WBC 6.0 4.8 - 10.8 K/mcL LAB HEMETOLOGY METHOD 07/09/2024 9:09 AM [facility] RBC 3.50(L) 4.50 - 5.50 M/mcL LAB HEMETOLOGY METHOD 07/09/2024 9:09 AM [facility] Hemoglobin 11.9(L) 13.5 - 17.5 g/dL LAB HEMETOLOGY METHOD 07/09/2024 9:09 AM [facility] Hematocrit 35.8(L) 42.0 - 54.0 % LAB HEMETOLOGY METHOD 07/09/2024 9:09 AM [facility] MCV 102.6(H) 79.0 - 98.0 FL LAB HEMETOLOGY METHOD 07/09/2024 9:09 AM [facility] MCH 34.1(H) 27.0 - 32.0 pcg LAB HEMETOLOGY METHOD 07/09/2024 9:09 AM [facility] MCHC 33.2 32.0 - 37.0 g/dL LAB HEMETOLOGY METHOD 07/09/2024 9:09 AM EDT [facility] RDW 12.3 11.0 - 15.0 % LAB HEMETOLOGY METHOD 07/09/2024 9:09 AM EDT [facility] Platelets 248 130 - 400 K/mcL LAB HEMETOLOGY METHOD 07/09/2024 9:09 AM EDT [facility] MPV 10.1 7.0 - 11.0 FL LAB HEMETOLOGY METHOD 07/09/2024 9:09 AM EDT [facility] NRBC 0.0 <1.0 % LAB HEMETOLOGY METHOD 07/09/2024 9:09 AM EDT [facility] NRBC Absolute 0.00 <0.10 K/mcL LAB HEMETOLOGY METHOD 07/09/2024 9:09 AM EDT [facility] Blood Venous blood specimen / Unknown Venipuncture / Unknown 07/09/2024 6:52 AM EDT 07/09/2024 8:53 AM EDT us Paz Mcguire MD LAB BLOOD ORDERABLES Fin al Result [facility] [address] [place] [address], * Hemoglobin A1c (07/09/2024 6:52 AM EDT) Hemoglobin A1C 6.3 <6.5 % LAB CHEMISTRY METHOD 07/09/2024 10:45 AM EDT [facility] Mean Bld Glu Estim. 134 mg/dL LAB CHEMISTRY METHOD 07/09/2024 10:45 AM EDT [facility] Blood Venous blood specimen / Unknown Venipuncture / Unknown 07/09/2024 6:52 AM EDT 07/09/2024 8:53 AM EDT us Paz Mcguire MD LAB BLOOD ORDERABLES Fin al Result Performing Organization Address [facility]/ZIP Co de Phone Number [facility] [address] [place] [address], [place] [phone] * (ABNORMAL) Folate (07/09/2024 6:52 AM EDT) Pathologist [facility] Folate >20.0(H) 2.8 - 17.0 ng/ml LAB CHEMISTRY METHOD 07/09/2024 9:57 AM EDT [facility] Blood Venous blood specimen / Unknown Venipuncture / Unknown 07/09/2024 6:52 AM EDT 07/09/2024 8:53 AM EDT Paz Mcguire MD LAB BLOOD ORDERABLES Fin al Result Performing Organization Address [facility] Co de Phone Number [facility] [address] [place] [address], [place] [phone] * (ABNORMAL) Vitamin B12 (07/09/2024 6:52 AM EDT) Pathologist [facility] Vitamin B-12 1,348(H) 250 - 900 pcg/mL LAB CHEMISTRY METHOD 07/09/2024 9:57 AM EDT [facility] Blood Venous blood specimen / Unknown Venipuncture / Unknown 07/09/2024 6:52 AM EDT 07/09/2024 8:53 AM EDT Paz Mcguire MD LAB BLOOD ORDERABLES Fin al Result Performing Organization Address [facility]/ZIP Co de Phone Number [facility] [address] [place] [address], [place] [phone] * (ABNORMAL) Basic metabolic panel (07/09/2024 6:52 AM EDT) Pathologist [facility] Sodium 135 133 - 145 mmol/L LAB CHE[facility]STR[facility] Potassium 4.7 3.5 - 5.5 mmol/L LAB CHEMISTRY METHOD 07/09/2024 9:35 AM [facility] Chloride 103 96 - 110 mmol/L LAB CHEMISTRY METHOD 07/09/2024 9:35 AM [facility] CO2 26 21 - 32 mmol/L LAB CHEMISTRY METHOD 07/09/2024 9:35 AM [facility] Anion Gap 6 3 - 11 LAB CHEMISTRY METHOD 07/09/2024 9:35 AM [facility] Glucose 117(H) 70 - 100 mg/dL LAB CHEMISTRY METHOD 07/09/2024 9:35 AM [facility] BUN 8 5 - 25 mg/dL LAB CHEMISTRY METHOD 07/09/2024 9:35 AM [facility] Creatinine 0.62(L) 0.70 - 1.30 mg/dL LAB CHEMISTRY METHOD 07/09/2024 9:35 AM [facility] eGFR 111 >=60 mL/min/1. 73m2 LAB CHEMISTRY METHOD 07/09/2024 9:35 AM [facility] Comment:Calculation based on the??Chronic Kidney Disease Epidemiology Collaboration (CKD-EPI) equation refit??without adjustment for race. BUN/Creatinine Ratio 12.9 LAB CHEMISTRY METHOD 07/09/2024 9:35 AM [facility] Calcium 9.4 8.5 - 10.5 mg/dL LAB CHEMISTRY METHOD 07/09/2024 9:35 AM [facility] Blood Venous blood specimen / Unknown Venipuncture / Unknown 07/09/2024 6:52 AM EDT 07/09/2024 8:53 AM EDT us Paz Mcguire MD LAB BLOOD ORDERABLES Fin al Result [facility] [address] [place] [address], [place] [phone] from Last 3 Months Insurance * Guarantor: Chandra Ramachandranto Account Type Relation to Patient Date of Phone Billing Address Personal/Family Self 1965 [address] [place] [address] MEDICARE MEDICAID - [place] Care Teams Internet Media Planner Relationship Specialty Start Date End Date Paz Mcguire MD [address] [place] [address] PCP - General Family Medicine 07/09/24
--- OUTSIDE RECORDS SUMMARY | 2024-08-26 17:01 | XMS_ITS | Clinical Summary ---
Author Organization Unknown Care Team Providers Care [facility] Name Role Phone MIKAYLA AG, MIRYAM JENNINGS Unavailable Unavailceferino HEARN RN, HAILEY Epps Unavailable TALHA METZ, STEFAN Unavailable Unavailable Payers Payer Name Policy Type Policy Number Effective Date Expira tion Date ON DEMAND MEDICARE - [place] - [place] [id number] [place] [id number] Problems Condition Name Condition Details Condition Category [...] tablet,coty yed release 2023-05 00:00: 00 Yes [id number] 1 tablet 2 TIMES DAILY 1 tablet 2 TIMES DAILY (route: oral) Med Classific ation: Chemical Dependenc y, Agents to Treat acetaminoph en 325 mg capsule 2023-05 00:00: 00 Yes [id number] 2 capsule 3 TIMES DAILY 2 capsule 3 TIMES DAILY (route: oral) Med Classific ation: Analgesic , Anti-infl ammatory or Antipyret ic escitalopra m 20 mg tablet 2023-05 00:00: 00 Yes [id number] 1 tablet EVERY AM 1 tablet EVERY AM (route: oral) Med Classific ation: Central Nervous System Agents folic acid 1 mg tablet 2023-05 00:00: 00 Yes [id number] 1 tablet EVERY AM 1 tablet EVERY AM (route: oral) Med Classific ation: Electroly te Balance-N utritiona l Products glipizide 10 mg tablet 2023-05 00:00: 00 Yes [id number] 1 tablet EVERY AM 1 tablet EVERY AM (route: oral) Med Classific ation: Endocrine lisinopril 5 mg tablet 2023-05 00:00: 00 Yes [id number] 1 tablet EVERY AM 1 tablet EVERY AM (route: oral) Med Classific ation: Cardiovas cular Therapy Agents metformin 500 mg tablet 2023-05 00:00: 00 Yes [id number] 2 tablet EVERY AM 2 tablet EVERY AM (route: oral) Med Classific ation: Endocrine Multivitami n 50 Plus tablet 2023-05 00:00: 00 Yes [id number] 1 tablet EVERY AM 1 tablet EVERY AM (route: oral) Med Classific ation: Electroly te Balance-N utritiona l Products pioglitazon e 45 mg tablet 2023-05 00:00: 00 Yes [id number] 1 tablet EVERY AM 1 tablet EVERY AM (route: oral) Med Classific ation: Endocrine quetiapine 25 mg tablet 2023-05 00:00: 00 Yes [id number] 1 tablet BEDTIME 1 tablet BEDTIME (route: oral) Med Classific ation: Central Nervous System Agents simvastatin 10 mg tablet 2023-05 00:00: 00 Yes [id number] 1 tablet EVERY PM 1 tablet EVERY PM (route: oral) Med Classific ation: Cardiovas cular Therapy Agents thiamine HCl (vitamin B1) 50 mg tablet 2023-05 00:00: 00 Yes [id number] 1 tablet EVERY AM 1 tablet EVERY [...] AWARENESS FOR SAFETY AND WILL NOTIFY CLINICAL SUTURE GAUGER AND PHYSICIAN/PROVIDER WITH ANY CHANGE IN CONDITION. [code = SKILLED NURSE WILL MAINTAIN SITUATIONAL AWARENESS FOR SAFETY AND WILL NOTIFY CLINICAL SUTURE GAUGER AND PHYSICIAN/PROVIDER WITH ANY CHANGE IN CONDITION.] [...] CARE WILL BE ESTABLISHED THAT MEETS PATIENT'S GROUP HOME NEEDS AND INCLUDES PATIENT GOAL FOR HOME [...] DUE TO NOT HAVING RIGHT LOCKBOX AMEZCUA. QUALITY COORDINATOR NOTIFIED AND WILL COME OVER AND ADMINISTER LATER</paragraph> Encounters Start Date/Time End Date/Time Encounter Type Admission Type Attending [facility] Facility Care Department Encounter ID Discharge Date Discharge Status Discharge Condition Discharge Reason Percent Goals Met 2024-04-04 00:00:00 2024-09-30 00:00:00 Outpatient RECERTIFIC ATSTEFAN EATON [facility] [id number] 7.41
== END 2024-08-26 14:14 | disposition home or self-care (01) ==
LOC: HO.LNP 14:13
PROVIDERS: Visit Provider Internal Medicine
DX: E11.9 Type 2 diabetes mellitus without complications (principal); D64.9 Anemia, unspecified; F31.9 Bipolar disorder, unspecified; I10 Essential (primary) hypertension
CPT/HCPCS: 82043; 82570

== ENCOUNTER → 2024-08-28 23:59 | Outpatient (BNV) | payer MEDICARE, MEDICAID, SELFPAY | PROVIDERS: PCP Internal Medicine; Visit Provider Internal Medicine | DX: E11.65 Type 2 diabetes mellitus with hyperglycemia (principal); F31.9 Bipolar disorder, unspecified; I10 Essential (primary) hypertension | CPT/HCPCS: G0179 ==

== ENCOUNTER 2024-10-09 07:46 | Outpatient (REF) | payer MEDICARE, MEDICAID, SELFPAY ==
--- NOTE | ~2024-10-09 | CT_ITS ---
CLINICAL HISTORY: R29.6 - Repeated falls CT head without contrast Comparison: 07/02/2024 Findings: No hydrocephalus or midline shift. No acute intracranial hemorrhage. Redemonstration of moderate cerebral hemispheric white matter hypodensities (more than expected for patient's age). Small-vessel ischemic disease may cause this appearance. Stable 8 mm hypodensity in the anterior limb of the left internal capsule may be due to old lacunar infarct. Mild bilateral maxillary sinus mucosal thickening Left cataract surgery. No skull fracture. IMPRESSION: No significant change from prior. Redemonstration of moderate cerebral hemispheric white matter hypodensities (more than expected for patient's age). Small-vessel ischemic disease may cause this appearance. Stable 8 mm hypodensity in the anterior limb of the left internal capsule may be due to old lacunar infarct. This document has been electronically signed by: Fallon Valente MD on 10/09/2024 11:20:25
--- OUTSIDE RECORDS SUMMARY | 2024-10-09 07:48 | XMS_ITS | Clinical Summary ---
Demographics Address [address] [place] [address] Home Phone Mobile Phone Preferred Language es Marital Status Single Shinto Affiliation Unknown Race Unknown Ethnic Group or Author Organization [address] [facility] Address [address] [place] [address] Phone Care Team Providers Care Whipper Beater Name Role Phone Paz Mcguire MD Primary Care Provider + Encounters Date Type Department Care Team Description 07/13/[address] [facility] Lab [address] [place] [phone] Paz Mcguire MD Anemia, unspecified; Essential (primary) hypertension; Type 2 diabetes mellitus without complications (CMS/HCC V24, CMS/HCC V28) 07/09/[address] [facility] [address] [place] [phone] Paz Mcguire MD Anemia, unspecified; Essential (primary) [...] Complete blood count (07/09/2024 6:52 AM EDT) [facility] Signature WBC 6.0 4.8 - 10.8 K/mcL LAB HEMETOLOGY METHOD 07/09/2024 9:09 AM [facility] RBC 3.50(L) 4.50 - 5.50 M/mcL LAB HEMETOLOGY METHOD 07/09/2024 9:09 AM [facility] Hemoglobin 11.9(L) 13.5 - 17.5 g/dL LAB HEMETOLOGY METHOD 07/09/2024 9:09 AM [facility] Hematocrit 35.8(L) 42.0 - 54.0 % LAB HEMETOLOGY METHOD 07/09/2024 9:09 AM [facility] MCV 102.6(H) 79.0 - 98.0 FL LAB HEMETOLOGY METHOD 07/09/2024 9:09 AM [facility] MCH 34.1(H) 27.0 - 32.0 pcg LAB HEMETOLOGY METHOD 07/09/2024 9:09 AM [facility] MCHC 33.2 32.0 - 37.0 g/dL LAB HEMETOLOGY METHOD 07/09/2024 9:09 AM EDT [facility] RDW 12.3 11.0 - 15.0 % LAB HEMETOLOGY METHOD 07/09/2024 9:09 AM EDT [facility] Platelets 248 130 - 400 K/mcL LAB HEMETOLOGY METHOD 07/09/2024 9:09 AM EDT [facility] MPV 10.1 7.0 - 11.0 FL LAB HEMETOLOGY METHOD 07/09/2024 9:09 AM EDT [facility] NRBC 0.0 <1.0 % LAB HEMETOLOGY METHOD 07/09/2024 9:09 AM EDT [facility] NRBC Absolute 0.00 <0.10 K/mcL LAB HEMETOLOGY METHOD 07/09/2024 9:09 AM EDT [facility] Blood Venous blood specimen / Unknown Venipuncture / Unknown 07/09/2024 6:52 AM EDT 07/09/2024 8:53 AM EDT us Paz Mcguire MD LAB BLOOD ORDERABLES Fin al Result [facility] [address] [place] [address], * Hemoglobin A1c (07/09/2024 6:52 AM EDT) Hemoglobin A1C 6.3 <6.5 % LAB CHEMISTRY METHOD 07/09/2024 10:45 AM EDT [facility] Mean Bld Glu Estim. 134 mg/dL LAB CHEMISTRY METHOD 07/09/2024 10:45 AM EDT [facility] Blood Venous blood specimen / Unknown Venipuncture / Unknown 07/09/2024 6:52 AM EDT 07/09/2024 8:53 AM EDT us Paz Mcguire MD LAB BLOOD ORDERABLES Fin al Result Performing Organization Address [facility]/ZIP Co de Phone Number [facility] [address] [place] [address], [place] [phone] * (ABNORMAL) Folate (07/09/2024 6:52 AM EDT) Pathologist [facility] Folate >20.0(H) 2.8 - 17.0 ng/ml LAB CHEMISTRY METHOD 07/09/2024 9:57 AM EDT [facility] Blood Venous blood specimen / Unknown Venipuncture / Unknown 07/09/2024 6:52 AM EDT 07/09/2024 8:53 AM EDT Paz Mcguire MD LAB BLOOD ORDERABLES Fin al Result Performing Organization Address [facility] Co de Phone Number [facility] [address] [place] [address], [place] [phone] * (ABNORMAL) Vitamin B12 (07/09/2024 6:52 AM EDT) Pathologist [facility] Vitamin B-12 1,348(H) 250 - 900 pcg/mL LAB CHEMISTRY METHOD 07/09/2024 9:57 AM EDT [facility] Blood Venous blood specimen / Unknown Venipuncture / Unknown 07/09/2024 6:52 AM EDT 07/09/2024 8:53 AM EDT Paz Mcguire MD LAB BLOOD ORDERABLES Fin al Result Performing Organization Address [facility]/ZIP Co de Phone Number [facility] [address] [place] [address], [place] [phone] * (ABNORMAL) Basic metabolic panel (07/09/2024 6:52 AM EDT) Pathologist [facility] Sodium 135 133 - 145 mmol/L LAB CHE[facility]STR[facility] Potassium 4.7 3.5 - 5.5 mmol/L LAB CHEMISTRY METHOD 07/09/2024 9:35 AM [facility] Chloride 103 96 - 110 mmol/L LAB CHEMISTRY METHOD 07/09/2024 9:35 AM [facility] CO2 26 21 - 32 mmol/L LAB CHEMISTRY METHOD 07/09/2024 9:35 AM [facility] Anion Gap 6 3 - 11 LAB CHEMISTRY METHOD 07/09/2024 9:35 AM [facility] Glucose 117(H) 70 - 100 mg/dL LAB CHEMISTRY METHOD 07/09/2024 9:35 AM [facility] BUN 8 5 - 25 mg/dL LAB CHEMISTRY METHOD 07/09/2024 9:35 AM [facility] Creatinine 0.62(L) 0.70 - 1.30 mg/dL LAB CHEMISTRY METHOD 07/09/2024 9:35 AM [facility] eGFR 111 >=60 mL/min/1. 73m2 LAB CHEMISTRY METHOD 07/09/2024 9:35 AM [facility] Comment:Calculation based on the??Chronic Kidney Disease Epidemiology Collaboration (CKD-EPI) equation refit??without adjustment for race. BUN/Creatinine Ratio 12.9 LAB CHEMISTRY METHOD 07/09/2024 9:35 AM [facility] Calcium 9.4 8.5 - 10.5 mg/dL LAB CHEMISTRY METHOD 07/09/2024 9:35 AM [facility] Blood Venous blood specimen / Unknown Venipuncture / Unknown 07/09/2024 6:52 AM EDT 07/09/2024 8:53 AM EDT us Paz Mcguire MD LAB BLOOD ORDERABLES Fin al Result [facility] [address] [place] [address], [place] [phone] from Last 3 Months Insurance * Guarantor: Chandra Ramachandranto Account Type Relation to Patient Date of Phone Billing Address Personal/Family Self 1965 [address] [place] [address] MEDICARE MEDICAID - [place] Care Teams Whipper Beater Relationship Specialty Start Date End Date Paz Mcguire MD [address] [place] [address] PCP - General Family Medicine 07/09/24
== END 2024-10-09 07:47 | disposition home or self-care (01) ==
LOC: HO.CT 07:46
PROVIDERS: PCP Internal Medicine; Visit Provider Internal Medicine
DX: R29.6 Repeated falls (principal); R42 Dizziness and giddiness
CPT/HCPCS: 70450

== ENCOUNTER → 2024-10-24 23:59 | Outpatient (BNV) | payer MEDICARE, MEDICAID, SELFPAY | PROVIDERS: PCP Internal Medicine; Visit Provider Internal Medicine | DX: E11.65 Type 2 diabetes mellitus with hyperglycemia (principal); F31.9 Bipolar disorder, unspecified; I10 Essential (primary) hypertension | CPT/HCPCS: G0179 ==

== ENCOUNTER → 2024-12-04 12:00 | Outpatient (BNV) | payer MEDICARE, MEDICAID, SELFPAY | PROVIDERS: PCP Internal Medicine; Visit Provider Internal Medicine | DX: E11.65 Type 2 diabetes mellitus with hyperglycemia (principal); F31.9 Bipolar disorder, unspecified; I10 Essential (primary) hypertension | CPT/HCPCS: G0179 ==

== ENCOUNTER 2024-12-12 11:49 | Outpatient (AMB) | payer MEDICARE, MEDICAID, SELFPAY ==
[2024-12-12 12:07] VITALS: BP 100/68; PULSE 100; RESP 16; TEMP 37.1; O2SAT 98; BMI 24.1
--- NOTE | 2024-12-12 12:07 | A.OFFPC_ITS ---
Vital Signs 12/12/24 12:07 Height 5 ft 5 in Weight 145 lb BMI 24.1 BP 100/68 Blood Pressure Location Lt brachial Position Sitting Respiration 16 Pulse 100 Pulse Source Pulse Oximeter Temp 98.8 F Temp Source Oral Pulse Oximetry (%) 98 Oxygen Delivery Method Room Air Intake Visit Reasons: Rt eye cataract 12/23 Dr. Gonzalez Allergies shellfish derived (shellfish) Allergy (Verified 08/20/24 12:43) Unknown Medication List - Last Reconciled 12/13/24 by Hanna Patten MD aspirin 81 mg PO DAILY blood sugar diagnostic (Breezy test strips) USE TO TEST FINGER STICK BLOOD SUGAR ONCE DAILY blood-glucose meter (FreeStyle Lite Meter kit) As directed blood-glucose meter (Breezy Glucose Monitor) As directed calcium carbonate (Tums) 200 mg PO Q4H PRN clonidine HCl 0.1 mg PO TID PRN docusate sodium (Colace) 100 mg PO BID PRN escitalopram oxalate 20 mg PO DAILY folic acid 1 mg PO DAILY glipizide 10 mg PO DAILY guaifenesin ER 1,200 mg PO Q12H PRN hydroxyzine pamoate 50 mg PO Q4H PRN ibuprofen 400 mg PO Q8H PRN lancets (Easy Comfort Lancets) USE TO TEST FINGER STICK BLOOD SUGAR ONCE DAILY leg brace (Knee Brace Large-XLarge) use daily in left knee as directed lisinopril 5 mg PO DAILY loperamide 2 mg PO Q4H PRN lorazepam 2 mg PO Q1H PRN lorazepam 1 mg PO Q2H PRN melatonin 3 mg PO BEDTIME PRN metformin 1,000 mg (2 x 500 mg) PO BID multivitamin 1 tab PO DAILY ondansetron 4 mg PO Q6H PRN pioglitazone 45 mg PO DAILY quetiapine 100 mg PO BEDTIME simvastatin 10 mg PO BEDTIME thiamine HCl (vitamin B1) 100 mg PO DAILY Tobacco use date assessed: 12/12/24 Dental Screening Dental Screen Date: 12/12/24 Did you have a dental visit in the last 12 months?: No Did you have a dental problem in the last 6 months where you did not have access to dental care?: No Was dental information given to patient?: Patient declined HPI Rt eye cataract 12/23 Dr. Gonzalez HPI Details 59-year-old male with history of diabete s mellitus, alcohol use disorder, hypertension, bipolar 1 disorder, here today accompanied by his caregiver, here today for preoperative exam for cataract surgery, scheduled for 12/23/2024, requested by Dr. Ramos. He states that he has been taking his medicines as directed,, but has not been able to follow recommended diet due to financial constraints . He also continues to smoke cigarettes at least a pack a day, with no desire to quit at present time. Has cut back on his drinking, states that he decreased his beer intake to 5 per day. He previously was on acamprosate, was able to cut back on his drinking but ran out of his medication and has been lost to follow-up. Diabetes control is good, with hemoglobin A1c today at 6.6% [facility] Medical History (Updated 12/12/24 @ 12:55 by Hanna Patten MD) Alcohol abuse with alcohol-induced anxiety disorder Homeless single person Dizziness Anemia Diabetes mellitus, without long-term current use of insulin History of alcoholism Polyarthralgia Vitamin D deficiency Colonoscopy refused Knee pain, bilateral COVID-19 vaccination declined Smokes 1.5-2 packs of cigarettes per day Cigarette smoker motivated to quit Knee pain, chronic Essential hypertension Alcohol use disorder Bipolar 1 disorder Diabetes mellitus with hyperglycemia, without long-term current use of insulin Family History Brother Mental health disorder Substance abuse Father Mental health disorder Mother Mental health disorder Social History (Updated 08/20/24 @ 16:09 by Hanna Patten MD) Household Members: Other Housing: Homeless Housing Other:: Lives in a homeless prison Are you a primary medical care manager to a significant other at home: No Do you presently have visiting nurse or other home services: Yes Alcohol intake: former Patient Tobacco Use Status: Current everyday Tobacco user Tobacco use type: Cigarette Cigarette Packs Per Day: 1 Cigarettes Per Day: 15 Years Smoked: 35 e-Cigarette/Vaping Use: Never Used Second Hand Smoke Exposure: Yes Advance Directives Date on File: 08/08/22 Current occupational status: disabled Cognitive needs: No Hearing needs: No Vision needs: Yes Questionnaire Thrive Questionnaire Date Thrive assessed: 08/20/24 I am a: Parent/Caregiver What is your living situation today?: I choose not to answer this question Within the past 12 months, did the food you bought not last and you didn't have the money to get more?: I choose not to answer this question Within the past 12 months, did you worry whether your food would run out before you got money to buy more?: I choose not to answer this question Do you have trouble paying for medicines?: I choose not to answer this question Do you have trouble getting transportation to medical appointments?: No Do you have trouble paying your heating and electricity bill?: I choose not to answer this question Do you have trouble taking care of your child, family member or friend?: I choose not to answer this question Do you have trouble with day-to-day activities such as bathing, preparing meals, shopping, managing finances, etc.?: Yes Are you currently unemployed and looking for a job?: I choose not to answer this question Are you interested in more education?: I choose not to answer this question Currently or been in a relationship where the following occur: No concerns reported THRIVE Score: 0 MONSERRAT-7 AMB Questionnaire MONSERRAT-7 Date MONSERRAT - 7 assessed: 08/20/24 Source: Developed by Drs. Manjit Barbour, Elizabeth Samaniego, Artem Rivera and colleagues, with an educational jessica from [employer]. Review of Systems Const Denies fever(s) and Denies weight loss Eyes Reports blurry vision ENT Denies dysphagia Card Reports no additional complaints Resp Reports no additional complaints GI Denies melena, Denies bloating, Denies hematochezia, Denies dysphagia, Denies e xcessive flatus, Denies early satiety, Reports heartburn and Denies nausea Reports no additional complaints Musc Reports abnormal gait, Reports arthralgias, Denies joint swelling and Reports stiffness Skin/Breast Denies pruritus, Denies lesions, Denies rash and Denies jaundice Neuro Denies Abnormal speech present and Reports abnormal gait Psych Reports no additional complaints Endo Reports no additional complaints Melivn/Lymph Reports no additional complaints Aller/Immun Reports no additional complaints Physical exam (Primary Care) Vital Signs: Last Vital Signs Temp 98.8 F 12/12/24 12:07 Pulse 100 12/12/24 12:07 Resp 16 12/12/24 12:07 BP 100/68 12/12/24 12:07 Pulse Ox 98 12/12/24 12:07 Oxygen Delivery Method Room Air 12/12/24 12:07 BMI result Body Mass Index 24.1 Tobacco/Smoking Status: Tobacco use Status Tobacco use date assessed 12/12/24 12/12/24 12:11 Patient Tobacco Use Status Current everyday Tobacco 12/12/24 12:11 Tobacco use type Cigarette 12/12/24 12:11 e-Cigarette/Vaping Use Never Used 12/12/24 12:11 Are you ready to quit: No Thrive Assessment: Date of Thrive Assessment Date Thrive assessed 08/20/24 12/12/24 12:11 Currently or been in a relationship where the following occur: No concerns reported Const General: comfortable and no acute distress Nutritional Appearance: average body habitus Orientation/consciousness: patient oriented x3 Limitations: ambulation with cane HENMT Face and sinus: Yes face symmetric Mouth: Normal oral and palatal mucosa present, oropharynx normal and moist mucous membranes Eyes General: appearance normal, both eyes and all related structures Neck Neck: Yes full ROM, Yes no lymphadenopathy and Yes supple Resp Effort & Inspection: normal respiratory effort Auscultation: clear to auscultation bilaterally Cardio Other: S1-S2 present regular rate and rhythm GI Palpation (GI): Soft to palpation, nontender, no guarding and no masses Other: refused exam Back/Spine/Pelvis Back: No back tenderness Skin General skin exam: no rashes or lesions noted and dry skin Neuro General: patient oriented x3, tone normal, moves all extremities, no focal motor deficits and CN's II-XI intact bilaterally Speech: No Abnormal speech present Extrem General: Yes full ROM, Yes no joint enlargement, Yes no pedal edema and Yes no calf tenderness Psych Other: Positive crepitus in knees Appearance: grossly normal Mental Status: mental status grossly normal Affect: Indifferent affect present Results AMB Hemoglobin A1c AMB Hemoglobin A1c 6.6 % Last Edit by Rosana Aldana CMA on 12/12/24 13:43 Results Reviewed Results Reviewed: Laboratory Last Values Hgb A1c (Clinic) 6.6 % (4.0-6.0) H 12/12/24 12:57 Coding Level of Care Code Est Pt Level 4 (33094) Diagnoses Preoperative examination Z01.818 Smokes 1.5-2 packs of cigarettes per day F17.210 Alcohol abuse with alcohol-induced anxiety disorder F10.180 Bipolar 1 disorder F31.9 Essential hypertension I10 Diabetes mellitus, without long-term current use of insulin E11.9 Assessment & Plan Assessment & Plan (1) Preoperative examination: Code(s): Z01.818 - Encounter for other preprocedural examination Plan: 52-year-old male with history of diabetes mellitus, hypertension, alcohol use disorder, here for pre-op clearance for right cataract surgery, requested by Dr. Ramos . Diabetes mellitus and hypertension is stable and controlled on present treatment. Has been feeling well , denies any ches pain or shortness, no headaches. He has a low cardiac risk index for proposed surgery (2) Smokes 1.5-2 packs of cigarettes per day: Code(s): F17.210 - Nicotine dependence, cigarettes, uncomplicated Category: Medical Plan: Patient strongly advised to stop smoking, as smoking damages blood vessels, degenerative of joints and spine, damage to lungs and heart., predisposes to developing certain cancers like lung, breast, bladder, colon. Recommended to try decreasing cigarette use by 1-2 cigarettes a day. Advised to monitor what triggers are for smoking so that this can be discussed on the next office visit. We can discuss different options to quit smoking when ready. Referred to lung cancer screening program (3) Alcohol abuse with alcohol-induced anxiety disorder: Code(s): F10.180 - Alcohol abuse with alcohol-induced anxiety disorder Category: Medical Plan: Referred to Addiction Medicine in [place] for help with his alcohol disorder. Previously was on acamprosate , which helped but patient was lost to follow-up (4) Bipolar 1 disorder: Comment: Sees med prescriber at [facility], cookie goes to [facility] Code(s): F31.9 - Bipolar disorder, unspecified Category: Medical Plan: Currently followed by psychiatry, on escitalopram 20 mg daily, (5) Essential hypertension: Code(s): I10 - Essential (primary) hypertension Category: Medical Plan: Blood pressure at goal of less than 130/80. Continue with lisinopril 5 mg daily. Reinforced importance of following a low sodium diet, getting regular exercise, cutting back on alcohol intake and smoking, and lowering stress levels. (6) Diabetes mellitus, without long-term current use of insulin: Code(s): E11.9 - Type 2 diabetes mellitus without complications Category: Medical Plan: Recent lab results reviewed with patient, with sugar and hemoglobin A1c at 6.6%. Continued on pioglitazone 45 mg daily, metformin a 1000 mg 1 tablet twice a day and glipizide 10 mg once a day with breakfast. continue to check fasting blood sugar at home, maintain log and bring to next appointment for review. Reinforced diabetic diet and regular exercise with patient. Counseled regarding importance of yearly diabetes retinopathy screening. Patient advised to inspect feet daily, for any signs of injury, callus or infection. Compliance with diet and regular exercise again stressed. Blood pressure goal is less than 130/80, goal LDL is less than 100 and goal hemoglobin A1c is less than 7% . Reminded again to get his fasting labs done, already ordered Orders: Orders AMB Hemoglobin A1c 12/12/24 Z13.9 - Encounter for screening, unspecified Referrals Lung Cancer Screening Referral F17.210 - Nicotine dependence, cigarettes, uncomplicated Addiction Medicine Referral F10.180 - Alcohol abuse with alcohol-induced anxiety disorder
--- OUTSIDE RECORDS SUMMARY | 2024-12-12 12:54 | XMS_ITS | Clinical Summary ---
Author Organization [address] [facility] Address [address] [place] [address] Phone Care Team Providers Care Regional Manager Name Role Phone Elder, Paz Reyes MD Primary Care Provider + Social History Tobacco Use Types Packs/Day Years [...] Vaccines (1 of 2) 2017 COVID-19 Vaccine (1 - 2023-2 5 season) 2023 Depression Screening 05/01/2024 Cholesterol Screening (Lipid Panel) 07/09/2024 Colorectal Cancer Screening: Colonoscopy 07/09/2024 Diabetes: Annual Urine Albumin-Creatinine Ratio (uACR) 07/09/2024 HIV Screening 07/09/2024 Hepatitis C Screening 07/09/2024 Medicare Annual Wellness Visit 07/09/2024 Social Influencers of Health Screening 07/09/2024 Influenza Vaccine (#1) 2024 9, 04/11/2008 Diabetes: Blood Sugar Contro l Test [...] Procedure Name Priority Date/Time Associated Diagnosis Comments BASIC METABOLIC PANEL Routine 07/09/2024 6:52 AM EDT Anemia, unspecified Essential (primary) hypertension Type 2 diabetes mellitus without complications (CMS/HCC) Polyarthritis, unspecified HEMOGLOBIN A1C Routine 07/09/2024 6:52 AM EDT Anemia, unspecified Essential (primary) hypertension Type 2 diabetes mellitus without complications (CMS/HCC) Polyarthritis, unspecified from Last 3 Months or Most Recently Relevant to Health Maintenance Results * Hemoglobin A1c (07/09/2024 6:52 AM EDT) Hemoglobin A1C 6.3 <6.5 % LAB CHEMISTRY METHOD 07/09/2024 10:45 AM EDT [facility] Mean Bld Glu Estim. 134 mg/dL LAB CHEMISTRY METHOD 07/09/2024 10:45 AM EDT [facility] Blood Venous blood specimen / Unknown Venipuncture / Unknown 07/09/2024 6:52 AM EDT 07/09/2024 8:53 AM EDT us Paz Mcguire MD LAB BLOOD ORDERABLES Fin al Result [facility] [address] [place] [address], * (ABNORMAL) Basic metabolic panel (07/09/2024 6:52 AM EDT) Sodium 135 133 - 145 mmol/L LAB CHEMISTRY METHOD 07/09/2024 9:35 AM EDT [facility] Potassium 4.7 3.5 - 5.5 mmol/L LAB CHEMISTRY METHOD 07/09/2024 9:35 AM T [facility] Chloride 103 96 - 110 mmol/L LAB CHEMISTRY METHOD 07/09/2024 9:35 AM [facility] CO2 26 21 - 32 mmol/L LAB CHEMISTRY METHOD 07/09/2024 9:35 AM [facility] Anion Gap 6 3 - 11 LAB CHEMISTRY METHOD 07/09/2024 9:35 AM [facility] Glucose 117(H) 70 - 100 mg/dL LAB CHEMISTRY METHOD 07/09/2024 9:35 AM [facility] BUN 8 5 - 25 mg/dL LAB CHEMISTRY METHOD 07/09/2024 9:35 AM [facility] Creatinine 0.62(L) 0.70 - 1.30 mg/dL LAB CHEMISTRY METHOD 07/09/2024 9:35 AM [facility] eGFR 111 >=60 mL/min/1. 73m2 LAB CHEMISTRY METHOD 07/09/2024 9:35 AM [facility] Comment:Calculation based on the Chronic Kidney Disease Epidemiology Collaboration (CKD-EPI) equation refit without adjustment for race. BUN/Creatinine Ratio 12.9 LAB CHEMISTRY METHOD 07/09/2024 9:35 AM [facility] Calcium 9.4 8.5 - 10.5 mg/dL LAB CHEMISTRY METHOD 07/09/2024 9:35 AM [facility] Blood Venous blood specimen / Unknown Venipuncture / Unknown 07/09/2024 6:52 AM EDT 07/09/2024 8:53 AM EDT Paz Mcguire MD LAB BLOOD ORDERABLES Fin al Result [facility] ([facility]) [facility] [address] [place] [address], from Last 3 Months or Most Recently Relevant to Health Maintenance Insurance * Guarantor: Epi Ramachandran Account Type Relation to Patient Date of Phone Billing Address Personal/Family Self 1965 [address] [place] [address] MEDICARE MEDICAID - [place] Care Teams Regional Manager Relationship Specialty Start Date End Date Paz Mcguire MD [address] [place] [address] PCP - General Family Medicine 07/09/24
== END 2024-12-12 13:30 | disposition home or self-care (01) ==
LOC: HO.HMCC 11:49
PROVIDERS: PCP Internal Medicine; Visit Provider Internal Medicine
DX: Z13.9 Encounter for screening, unspecified (principal)

== ENCOUNTER → 2024-12-12 11:49 | Outpatient (BNVA) | payer MEDICARE, MEDICAID, SELFPAY | PROVIDERS: PCP Internal Medicine; Visit Provider Internal Medicine | DX: Z01.818 Encounter for other preprocedural examination (principal); F31.9 Bipolar disorder, unspecified; I10 Essential (primary) hypertension; E11.9 Type 2 diabetes mellitus without complications; F10.180 Alcohol abuse with alcohol-induced anxiety disorder; F17.210 Nicotine dependence, cigarettes, uncomplicated | CPT/HCPCS: 83036; 99212 ==

== ENCOUNTER 2024-12-18 10:33 | Outpatient (REF) | payer MEDICARE, MEDICAID, SELFPAY ==
--- OUTSIDE RECORDS SUMMARY | 2024-12-18 11:53 | XMS_ITS | Clinical Summary ---
Author Organization [address] [facility] Address [address] [place] [address] Phone Care Team Providers Care Natural Gas Technician Name Role Phone Elder, Paz Reyes MD [...] AM EDT 07/09/2024 8:53 AM EDT us Pza Mcguire MD LAB BLOOD ORDERABLES Fin al Result [facility] [address] [place] [address], * (ABNORMAL) Basic metabolic panel (07/09/2024 6:52 AM EDT) Sodium 135 133 - 145 mmol/L LAB CHEMISTRY METHOD 07/09/2024 9:35 AM EDT [facility] Potassium 4.7 3.5 - 5.5 mmol/L LAB CHEMISTRY METHOD 07/09/2024 9:35 AM T [facility] Chloride 103 96 - [...] [facility] Comment:Calculation based on the [...] LAB BLOOD ORDERABLES Fin al Result [facility] ([facility]) [facility] [address] [place] [address], from Last 3 Months or Most Recently Relevant to Health Maintenance Insurance * Guarantor: Epi Ramachandran Account Type Relation to Patient Date of Phone Billing Address Personal/Family Self 1965 [address] [place] [address] MEDICARE MEDICAID - [place] Care Teams Natural Gas Technician Relationship Specialty Start Date End Date Paz Mcguire MD [address] [place] [address] PCP - General Family Medicine 07/09/24
[2024-12-18 12:22] LABS: Alanine Aminotransferase 90 U/L (0-40); Anion Gap 18 (12-20); Aspartate Amino Transferase 76 U/L (5-37); Blood Urea Nitrogen 4 mg/dL (9-16); Calcium 9.5 mg/dL (8.4-10.2); Carbon Dioxide 26 mmol/L (22-29); Chloride 96 mmol/L (96-108); Cholesterol 140 mg/dL (<200); Estimated Glomerular Filt Rate > 60; HDL Cholesterol 84 mg/dL (>40); Potassium 3.8 mmol/L (3.3-5.1); Sodium 136 mmol/L (135-145); Triglycerides 53 mg/dL (<150)
[2024-12-18 12:32] LABS: Hemoglobin A1C 202.6546 umol/L; Total Hemoglobin (HGBA1C) 3651.8483 umol/L
[2024-12-19 13:11] LABS: Microalbum/Creatinine Ratio Ur 21.1 ug/mg cr (<30)
== END 2024-12-18 10:34 | disposition home or self-care (01) ==
LOC: HO.LAB 10:33
PROVIDERS: PCP Internal Medicine; Visit Provider Internal Medicine
DX: I10 Essential (primary) hypertension (principal); E11.65 Type 2 diabetes mellitus with hyperglycemia
CPT/HCPCS: 36415; 80048; 80061; 82043; 82570; 83036; 84425; 84450; 84460

== ENCOUNTER 2025-01-09 12:54 | Outpatient (AMB) | payer MEDICARE, MEDICAID, SELFPAY ==
[2025-01-09 13:11] VITALS: BP 138/80; PULSE 110; O2SAT 98; BMI 25.5
--- NOTE | 2025-01-09 13:11 | A.OFFVIS_ITS ---
Vital Signs 01/09/25 13:11 Height 5 ft 5 in Weight 153 lb BMI 25.5 BP 138/80 Pulse 110 H Pulse Oximetry (%) 98 Intake Visit Reasons: MAT Intake Allergies shellfish derived (shellfish) Allergy (Verified 01/09/25 13:13) Unknown Medication List - Last Reconciled 01/09/25 by VALENTIN PompaC acamprosate 666 mg (2 x 333 mg) PO TID 30 days aspirin 81 mg PO DAILY blood sugar diagnostic (Ad Summosace TALK test strips) USE TO TEST FINGER STICK BLOOD SUGAR ONCE DAILY blood-glucose meter (FreeStyle Lite Meter kit) As directed blood-glucose meter (Embrace TALK Glucose Monitor) As directed calcium carbonate (Tums) 200 mg PO Q4H PRN clonidine HCl 0.1 mg PO TID PRN docusate sodium (Colace) 100 mg PO BID PRN escitalopram oxalate 20 mg PO DAILY folic acid 1 mg PO DAILY glipizide 10 mg PO DAILY guaifenesin ER 1,200 mg PO Q12H PRN hydroxyzine pamoate 50 mg PO Q4H PRN ibuprofen 400 mg PO Q8H PRN lancets (Easy Comfort Lancets) USE TO TEST FINGER STICK BLOOD SUGAR ONCE DAILY leg brace (Knee Brace Large-XLarge) use daily in left knee as directed lisinopril 5 mg PO DAILY loperamide 2 mg PO Q4H PRN lorazepam 2 mg PO Q1H PRN lorazepam 1 mg PO Q2H PRN melatonin 3 mg PO BEDTIME PRN metformin 1,000 mg (2 x 500 mg) PO BID multivitamin 1 tab PO DAILY ondansetron 4 mg PO Q6H PRN pioglitazone 45 mg PO DAILY quetiapine 100 mg PO BEDTIME simvastatin 10 mg PO BEDTIME thiamine HCl (vitamin B1) 100 mg PO DAILY HPI Comments Details: A 60-year-old male presents with [facility] for a MAT intake for AUD. Reports last alcohol consumption was yesterday which consisted of a beer. Reports he is ready to focus on reducing and ultimately complete sensation of alcohol consumption with the assistance of medication. In the past was on acamprosate with positive results. Acknowledges a history of alcohol use since early teens. Denies opioids, and other substances and notes smoking one pack of cigarettes per day. [facility] Medical History (Updated 09/11/25 @ 14:26 by TOBI Pompa) Alcohol abuse with alcohol-induced anxiety disorder Homeless single person Dizziness Anemia Diabetes mellitus, without long-term current use of insulin History of alcoholism Polyarthralgia Vitamin D deficiency Colonoscopy refused Knee pain, bilateral COVID-19 vaccination declined Smokes 1.5-2 packs of cigarettes per day Cigarette smoker motivated to quit Knee pain, chronic Essential hypertension Alcohol use disorder Bipolar 1 disorder Diabetes mellitus with hyperglycemia, without long-term current use of insulin Family History Brother Mental health disorder Substance abuse Father Mental health disorder Mother Mental health disorder Social History (Updated 08/20/24 @ 16:09 by Hanna Patten MD) Household Members: Other Housing: Homeless Housing Other:: Lives in a homeless retirement Are you a primary transitional care liaison to a significant other at home: No Do you presently have visiting nurse or other home services: Yes Alcohol intake: former Patient Tobacco Use Status: Current everyday Tobacco user Tobacco use type: Cigarette Cigarette Packs Per Day: 1 Cigarettes Per Day: 15 Years Smoked: 35 e-Cigarette/Vaping Use: Never Used Second Hand Smoke Exposure: Yes Advance Directives Date on File: 08/08/22 Current occupational status: disabled Cognitive needs: No Hearing needs: No Vision needs: Yes Review of Systems Const All systems reviewed & are unremarkable except as noted in HPI and below Physical Exam Vital Signs: Last Vital Signs Pulse 110 H 01/09/25 13:11 BP 138/80 01/09/25 13:11 Pulse Ox 98 01/09/25 13:11 BMI result Body Mass Index 25.5 Const General: cooperative Assessment & Plan Assessment & Plan (1) Alcohol use disorder, severe, dependence: Code(s): F10.20 - Alcohol dependence, uncomplicated Category: Medical Plan The plan of care is to start on acamprosate 333 mg, 2 tablets TID, continue with thiamine 100 mg and folic acid 1 mg daily. Information given for AA and community resources. The patient declined a referral to a peer rn recovery. Education provided regarding risk reduction activities to minimize alcohol and smoking. Information provided about inpatient detox stay. Notes he will consider this option. Follow up in 1 month or sooner if needed. Medications: New acamprosate Take 2 tablets by mouth three times per day. 666 mg (2 x 333 mg) PO TID 180 tabs 0RF 30 days Patient Instructions: - Start on acamprosate as ordered. - Continue with thiamine and folic acid as ordered. - Follow up with community resources and AA for additional support. - Follow up in 1 month or sooner if needed. - Call with questions, concerns, or to report side effects/new onset of symptoms to [facility]. - The patient verbalized understanding and agreed with plan of care. Coding Level of Care Code New Pt Level 3 (34747) Diagnoses Alcohol use disorder, severe, dependence F10.20
--- OUTSIDE RECORDS SUMMARY | 2025-01-27 20:00 | XMS_ITS | Clinical Summary ---
Author Organization Unknown Care Team Providers Care Grants Analyst Name Role Phone MIKAYLA AG, MIRYAM JENNINGS Unavailable Unavailceferino HEARN RN, HAILEY Epps Unavailable TALHA METZ, STEFAN Unavailable Unavailable Payers Payer Name Policy Type Policy Number Effective Date Expira tion Date ON DEMAND MEDIC[place] - [place] [id number] [place] [id number] Problems Condition Name Condition Details Condition Category [...] tablet,coty yed release 2023-05 00:00: 00 Yes [id number] 1 tablet 2 TIMES DAILY 1 tablet 2 TIMES DAILY (route: oral) Med Classific ation: Chemical Dependenc y, Agents to Treat acetaminoph en 325 mg capsule 2023-05 00:00: 00 Yes [id number] 2 capsule 3 TIMES DAILY 2 capsule 3 TIMES DAILY (route: oral) Med Classific ation: Analgesic , Anti-infl ammatory or Antipyret ic escitalopra m 20 mg tablet 2023-05 00:00: 00 Yes [id number] 1 tablet EVERY AM 1 tablet EVERY AM (route: oral) Med Classific ation: Central Nervous System Agents folic acid 1 mg tablet 2023-05 00:00: 00 Yes [id number] 1 tablet EVERY AM 1 tablet EVERY AM (route: oral) Med Classific ation: Electroly te Balance-N utritiona l Products glipizide 10 mg tablet 2023-05 00:00: 00 Yes [id number] 1 tablet EVERY AM 1 tablet EVERY AM (route: oral) Med Classific ation: Endocrine lisinopril 5 mg tablet 2023-05 00:00: 00 Yes [id number] 1 tablet EVERY AM 1 tablet EVERY AM (route: oral) Med Classific ation: Cardiovas cular Therapy Agents metformin 500 mg tablet 2023-05 00:00: 00 Yes [id number] 2 tablet EVERY AM 2 tablet EVERY AM (route: oral) Med Classific ation: Endocrine Multivitami n 50 Plus tablet 2023-05 00:00: 00 Yes [id number] 1 tablet EVERY AM 1 tablet EVERY AM (route: oral) Med Classific ation: Electroly te Balance-N utritiona l Products pioglitazon e 45 mg tablet 2023-05 00:00: 00 Yes [id number] 1 tablet EVERY AM 1 tablet EVERY AM (route: oral) Med Classific ation: Endocrine quetiapine 25 mg tablet 2023-05 00:00: 00 Yes [id number] 1 tablet BEDTIME 1 tablet BEDTIME (route: oral) Med Classific ation: Central Nervous System Agents simvastatin 10 mg tablet 2023-05 00:00: 00 Yes [id number] 1 tablet EVERY PM 1 tablet EVERY PM (route: oral) Med Classific ation: Cardiovas cular Therapy Agents thiamine HCl (vitamin B1) 50 mg tablet 2023-05 00:00: 00 Yes [id number] 1 tablet EVERY AM 1 tablet EVERY AM (route: oral) Med Classific ation: Electroly te Balance-N utritiona l Products Vital Signs Vital Name Observation Time Observation Value Commen ts Temperature 2025-01-06 12:01:00.000 97.5 [degF] Temperature 2025-01-03 14:40:00.000 97.3 [degF] Temperature 2025 11:25:00.000 96.7 [degF] Temperature 2024-12-26 10:31:00.000 96.8 [degF] Temperature 2024-12-23 11:48:00.000 97.3 [degF] Temperature 2024-12-19 12:47:00.000 97.3 [degF] Temperature 2024-12-16 13:27:00.000 97.6 [degF] Temperature 2024-12-12 12:30:00.000 97.1 [degF] Temperature 2024-12-09 12:02:00.000 97.2 [degF] Temperature 2024-12-05 14:05:00.000 98.1 [degF] Temperature 2024-12-02 11:12:00.000 97.3 [degF] Pulse 2025-01-06 12:01:00.000 84 /min Pulse 2025-01-03 14:40:00.000 76 /min Pulse 2025 11:25:00.000 76 /min Pulse 2024-12-26 10:31:00.000 88 /min Pulse 2024-12-23 11:48:00.000 92 /min Pulse 2024-12-19 12:47:00.000 76 /min Pulse 2024-12-16 13:27:00.000 84 /min Pulse 2024-12-12 12:30:00.000 80 /min Pulse 2024-12-09 12:02:00.000 76 /min Pulse 2024-12-05 14:05:00.000 88 /min Pulse 2024-12-02 11:12:00.000 100 /min Respirations 2025-01-06 12:01:00.000 16 /min Respirations 2025-01-03 14:40:00.000 16 /min Respirations 2025 11:25:00.000 16 /min Respirations 2024-12-26 10:31:00.000 16 /min Respirations 2024-12-23 11:48:00.000 16 /min Respirations 2024-12-19 12:47:00.000 16 /min Respirations 2024-12-16 13:27:00.000 16 /min Respirations 2024-12-12 12:30:00.000 16 /min Respirations 2024-12-09 12:02:00.000 16 /min Respirations 2024-12-05 14:05:00.000 16 /min Respirations 2024-12-02 11:12:00.000 16 /min Systolic Blood Pressure 2025-01-06 12:01:00.000 136 mm [Hg] Systolic Blood Pressure 2025-01-03 14:40:00.000 128 mm [Hg] Systolic Blood Pressure 2025 11:25:00.000 130 mm [Hg] Systolic Blood Pressure 2024-12-26 10:31:00.000 134 mm [Hg] Systolic Blood Pressure 2024-12-23 11:48:00.000 134 mm [Hg] Systolic Blood Pressure 2024-12-19 12:47:00.000 128 mm [Hg] Systolic Blood Pressure 2024-12-16 13:27:00.000 134 mm [Hg] Systolic Blood Pressure 2024-12-12 12:30:00.000 136 mm [Hg] Systolic Blood Pressure 2024-12-09 12:02:00.000 128 mm [Hg] Systolic Blood Pressure 2024-12-05 14:05:00.000 126 mm [Hg] Systolic Blood Pressure 2024-12-02 11:12:00.000 134 mm [Hg] Diastolic Blood Pressure 2025-01-06 12:01:00.000 74 mm [Hg] Diastolic Blood Pressure 2025-01-03 14:40:00.000 74 mm [Hg] Diastolic Blood Pressure 2025 11:25:00.000 80 mm [Hg] Diastolic Blood Pressure 2024-12-26 10:31:00.000 72 mm [Hg] Diastolic Blood Pressure 2024-12-23 11:48:00.000 70 mm [Hg] Diastolic Blood Pressure 2024-12-19 12:47:00.000 74 mm [Hg] Diastolic Blood Pressure 2024-12-16 13:27:00.000 70 mm [Hg] Diastolic Blood Pressure 2024-12-12 12:30:00.000 74 mm [Hg] Diastolic Blood Pressure 2024-12-09 12:02:00.000 76 mm [Hg] Diastolic Blood Pressure 2024-12-05 14:05:00.000 70 mm [Hg] Diastolic Blood Pressure 2024-12-02 11:12:00.000 90 mm [Hg] Plan of Treatment Planned Activity [...] HEALTH.] Future Scheduled Test SKILLED NU RSE WILL MAINTAIN SITUATIONAL AWARENESS FOR SAFETY AND WILL NOTIFY CLINICAL SHIP CONSTRUCTION TEACHER AND PHYSICIAN/PROVIDER WITH ANY CHANGE IN CONDITION. [code = SKILLED NURSE WILL MAINTAIN SITUATIONAL AWARENESS FOR SAFETY AND WILL NOTIFY CLINICAL SHIP CONSTRUCTION TEACHER AND PHYSICIAN/PROVIDER WITH ANY CHANGE IN CONDITION.] Future Scheduled Test SKILLED NU RSE TO ASSESS PATIENT S PSYCHOSOCIAL STATUS TO IDENTIFY POTENTIAL ISSUES THAT MAY COMPLICATE THE PROVISION OF THE PLAN OF CARE INCLUDING THE PATIENT S ABILITY TO ACCESS COMMUNITY RESOURCES AND PSYCHOSOCIAL SUPPORT SERVICES. [code = SKILLED NURSE TO ASSESS PATIENT S PSYCHOSOCIAL STATUS TO IDENTIFY POTENTIAL ISSUES THAT MAY COMPLICATE THE PROVISION OF THE PLAN OF CARE INCLUDING THE PATIENT S ABILITY TO ACCESS COMMUNITY RESOURCES AND PSYCHOSOCIAL SUPPORT SERVICES.] Future Scheduled Test SKILLED NU RSE TO O/A OF PATIENTS MENTAL/BEHAVIORAL STATUS, ASSESS VITAL SIGNS TWICE WEEKLY ALLOW 2 PRNS FOR MEDICATION MANAGEMENT. [code = SKILLED NURSE TO O/A OF PATIENTS MENTAL/BEHAVIORAL STATUS, ASSESS VITAL SIGNS TWICE WEEKLY ALLOW 2 PRNS FOR MEDICATION MANAGEMENT.] Future Scheduled Test SKILLED NU RSE FOR O/A OF GENERAL HEALTH STATUS OF PAIN, CARDIAC, RESPIRATORY, GASTROINTESTINAL, GENITOURINARY, SKIN, NEUROLOGIC, ENDOCRINE SYSTEMS TO IDENTIFY CHANGES ASSOCIATED WITH EXACERBATION FOR EARLY INTERVENTION OF COMPLICATIONS 2 X WEEK. [code = SKILLED NURSE FOR O/A OF GENERAL HEALTH STATUS OF PAIN, CARDIAC, RESPIRATORY, GASTROINTESTINAL, GENITOURINARY, SKIN, NEUROLOGIC, ENDOCRINE SYSTEMS TO IDENTIFY CHANGES ASSOCIATED WITH EXACERBATION FOR EARLY INTERVENTION OF COMPLICATIONS 2 X WEEK.] Future Scheduled Test SKILLED NU RSE TO [...] Test SKILLED NU RSE TO ADMINISTER MEDICATIONS 2 X WEEK AND PRE-POUR MEDICATIONS 2 X WEEK PER MEDICATION LIST. [code = SKILLED NURSE TO ADMINISTER MEDICATIONS 2 X WEEK AND PRE-POUR MEDICATIONS 2 X WEEK PER MEDICATION LIST.] Future Scheduled Test PATIENT MA Y HAVE [...] INTERVENTION.] Future Scheduled Test SKILLED NU RSE FOR O/A AND SKILLED TEACHING OF COPING SKILLS TO MANAGE ANXIETY AND MAINTAIN SAFETY. [code = SKILLED NURSE FOR O/A AND SKILLED TEACHING OF COPING SKILLS TO MANAGE ANXIETY AND MAINTAIN SAFETY.] Future Scheduled Test SKILLED NU RSE FOR O/A OF ALTERED MOOD [code = SKILLED NURSE FOR O/A OF ALTERED MOOD] Future Scheduled Test MEDICATION S WILL BE [...] AND SIGNS AND SYMPTOMS HYPO/HYPERGLYCEMIA TO REPORT.] Goal 2024-05-29 Patient Goal - P ATIENT VERBALIZED GOAL OF FEELING BETTER Goal Patient Goal - P ATIENT SAYS WANTS TO FEELING GOOD AND HAVE HIS OWN APARTMENT Goal 2024-11-25 Patient Goal - P TEE SAYS WANTS TO FEELING GOOD AND HAVE HIS OWN APARTMENT Goal 2024-09-27 Patient Goal - P ETE SAYS WANTS TO FEELING GOOD AND HAVE HIS OWN APARTMENT Goal 2024-07-29 Patient Goal - P TEE SAYS WANTS TO FEELING GOOD AND HAVE HIS OWN APARTMENT Goal Provider Goal - A PLAN OF CARE WILL BE ESTABLISHED THAT MEETS PATIENT'S SENIOR CARE NEEDS AND INCLUDES PATIENT GOAL FOR HOME HEALTH. Goal Provider Goal - PATIENT WILL REMAIN SAFE IN THE COMMUNITY AND WILL BE FREE OF DANGER TO SELF AND OTHERS THROUGHOUT THE CERTIFICATION PERIOD. Goal Provider Goal - PSYCHOSOCIAL NEEDS WILL BE IDENTIFIED AND PLAN IMPLEMENTED TO MINIMIZE RISK THROUGHOUT CERTIFICATION PERIOD. Goal Provider Goal - ALTERED MENTAL/BEHAVIORAL STATUS WILL BE IDENTIFIED PROMPTLY AND INTERVENTION INITIATED QUICKLY TO MINIMIZE ASSOCIATED RISKS THROUGHOUT CERTIFICATION PERIOD. Goal Provider Goal - CHANGE IN GENERAL [...] LOCKBOX FOR SAFETY. Goal Provider Goal - PATIENT/CAREGIVER WILL VERBALIZE/DEMONSTRATE KNOWLEDGE OF DIABETIC MANAGEMENT. CHANGES IN DIABETIC STATUS WILL BE IDENTIFIED AND REPORTED TO PHYSICIAN FOR PROMPT INTERVENTION THROUGHOUT THE CERTIFICATION PERIOD. Encounters Start Date/Time End Date/Time Encounter Type Admission Type Attending [facility] Care Facility Care Department Encounter ID Discharge Date Discharge Status Discharge Condition Discharge Reason Percent Goals Met 2024-11-30 00:00:00 2025-01-28 00:00:00 Outpatient RECERTIFIC ATION STEF[facility] [id number] 0.00
== END 2025-01-09 13:59 | disposition home or self-care (01) ==
LOC: HO.HCC 12:54
PROVIDERS: PCP Internal Medicine; Visit Provider Clinical Nurse Specialist Psychiatric/Mental Health
DX: F10.20 Alcohol dependence, uncomplicated (principal)
CPT/HCPCS: 99203

== ENCOUNTER → 2025-01-09 12:54 | Outpatient (BNVA) | payer MEDICARE, MEDICAID, SELFPAY | PROVIDERS: PCP Internal Medicine; Visit Provider Clinical Nurse Specialist Psychiatric/Mental Health | DX: F10.20 Alcohol dependence, uncomplicated (principal) | CPT/HCPCS: 99202 ==

== ENCOUNTER 2025-01-13 14:25 | Emergency (ER) | payer MEDICARE, MEDICAID, SELFPAY ==
[2025-01-13 14:42] VITALS: BP 123/90; PULSE 99; O2SAT 99
[2025-01-13 15:00] VITALS: BP 105/77; PULSE 95; RESP 20; TEMP 36.4; O2SAT 95; BMI 26.0
[2025-01-13 16:00] VITALS: BP 105/75; PULSE 75; RESP 15; TEMP 36.9; O2SAT 100
[2025-01-13 16:41] VITALS: PULSE 74
--- NOTE | 2025-01-13 16:49 | ED_ITS ---
HPI - General Adult General Chief complaint: ETOH/Substance Use Stated complaint: CRISIS, ETOH Time Seen by Provider: 01/13/25 16:46 Source: patient Mode of arrival: ambulatory Limitations: language barrier History of Present Illness ED Provider: Dr. Schaeffer HPI narrative: 60-year-old male history of diabetes, alcohol use disorder presented hospital today for evaluation of erratic behavior from the halfway. Patient does endorse alcohol usage. He has no medical complaints at this time. Patient is requesting to be discharged. Related Data Home Medications ?Medication ?Instructions ?Recorded ?Confirmed aspirin 81 mg chewable tablet 81 mg PO DAILY 07/02/24 01/09/25 calcium carbonate (Tums) 200 mg PO Q4H PRN Heartburn 07/02/24 01/09/25 clonidine HCl 0.1 mg tablet 0.1 mg PO TID PRN Alcohol 07/02/24 01/09/25 Withdrawal docusate sodium 100 mg capsule 100 mg PO BID PRN Const ipation 07/02/24 01/09/25 (Colace) guaifenesin 600 mg tablet, 1,200 mg PO Q12H PRN Cough 07/02/24 01/09/25 extended release 12 hr hydroxyzine pamoate 50 mg capsule 50 mg PO Q4H PRN Anx iety 07/02/24 01/09/25 ibuprofen 400 mg tablet 400 mg PO Q8H PRN 07/02/24 0 01/09/25 TOOTHACHE/HEADACHE loperamide 2 mg capsule 2 mg PO Q4H PRN Loose Stool 07/02/24 01/09/25 lorazepam 1 mg tablet 1 mg PO Q2H PRN CIWA SCORE 1 0-14 07/02/24 01/09/25 lorazepam 1 mg tablet 2 mg PO Q1H PRN CIWA 15 OR G REATER 07/02/24 01/09/25 melatonin 3 mg tablet 3 mg PO BEDTIME PRN Insomnia 07/02/24 01/09/25 ondansetron 4 mg disintegrating 4 mg PO Q6H PRN Nausea And Vomiting 07/02/24 01/09/25 tablet quetiapine 100 mg tablet 100 mg PO BEDTIME 07/02/24 0 01/09/25 Previous Rx's ?Medication ?Instructions ?Recorded leg brace (Knee Brace Large-XLarge) #1 ea 01/25/21 blood-glucose meter (FreeStyle #1 ea 12/13/22 Lite Meter kit) blood sugar diagnostic (Embrace #100 strips 02/13/24 TALK test strips) escitalopram oxalate 20 mg tablet 20 mg PO DAILY #90 t abs 02/13/24 lancets 30 gauge (Easy Comfort #100 ea 02/13/24 Lancets) multivitamin 1 tab PO DAILY #90 tabs 01/29 09/21 blood-glucose meter (Embrace TALK #1 ea 04/17/24 Glucose Monitor) folic acid 1 mg tablet 1 mg PO DAILY #90 tabs 11/04 thiamine HCl (vitamin B1) 100 mg 100 mg PO DAILY #30 t abs 11/08/24 tablet glipizide 10 mg tablet 10 mg PO DAILY #90 tabs 10/29 07/23 lisinopril 5 mg tablet 5 mg PO DAILY #90 tabs 11/10 pioglitazone 45 mg tablet 45 mg PO DAILY #90 tabs 10/29 07/23 simvastatin 10 mg tablet 10 mg PO BEDTIME #90 tabs metformin 500 mg tablet 1,000 mg (2 x 500 mg) PO BID #360 11/11/24 tabs acamprosate 333 mg tablet,delayed 666 mg (2 x 333 mg) PO TID 30 days 01/09/25 release #180 tabs Allergies Allergy/AdvReac Type Severity Reaction Status Date / Time shellfish derived (shellfish) Allergy Unknown Verified 01/13/25 15:02 Review of Systems Review of Systems: Pertinent review of systems as mentioned in HPI. All other system otherwise negative. [facility] Past Medical History [facility] Narrative: Medical history as mentioned in HPI Medical History (Updated 01/09/25 @ 14:26 by Cathy Reich [employer]YROMETER MECH[employer]IC-C) Alcohol abuse with alcohol-induced anxiety disorder Homeless single person Dizziness Anemia Diabetes mellitus, without long-term current use of insulin History of alcoholism Polyarthralgia Vitamin D deficiency Colonoscopy refused Knee pain, bilateral COVID-19 vaccination declined Smokes 1.5-2 packs of cigarettes per day Cigarette smoker motivated to quit Knee pain, chronic Essential hypertension Alcohol use disorder Bipolar 1 disorder Diabetes mellitus with hyperglycemia, without long-term current use of insulin Family History Family History Brother Mental health disorder Substance abuse Father Mental health disorder Mother Mental health disorder Social History Social History (Updated 08/20/24 @ 16:09 by Hanna Patten MD) Household Members: Other Housing: Homeless Housing Other:: Lives in a homeless halfway Are you a primary career coordinator to a significant other at home: No Do you presently have visiting nurse or other home services: Yes Alcohol intake: former Patient Tobacco Use Status: Current everyday Tobacco user Tobacco use type: Cigarette Cigarette Packs Per Day: 1 Cigarettes Per Day: 15 Years Smoked: 35 Smoked in Last 30 Days: Yes e-Cigarette/Vaping Use: Never Used Second Hand Smoke Exposure: Yes Use of substances other than those prescribed or required for medical reasons: No Advance Directives: Yes Advance Directives on File: Yes Advance Directives Date on File: 07/04/24 Do you have a plan to hurt others: No Plan Current occupational status: disabled Cognitive needs: No Hearing needs: No Vision needs: Yes Physical Exam ED Exam Exam: General: Pleasant, no distress, interacting appropriately Head: Normacephalic, atraumatic ENT: oral mucosa moist, neck supple, no tracheal deviation Cardiovascular: regular rate, regular rhythm, no murmurs, rubbing, gallops Respiratory: CTAB, no wheeze, rales, rhonchi Neurological: Awake and alert, no facial droop noted Skin: Warm and dry Psychiatric: Appropriate mood and thoughts Vital Signs: Vital Signs - 24 hr 01/13/25 15:00 01/13/25 16:00 Temperature 97.5 F 98.4 F Pulse Rate 95 75 Respiratory Rate 20 15 Blood Pressure 105/77 105/75 Pulse Oximetry 95 100 Oxygen Delivery Method Room Air Room Air BMI result Body Mass Index 26.0 Medical Decision Making Medical Decision Making MDM Narrative: 60-year-old male history of alcohol use disorder diabetes presented hospital today for evaluation of erratic behavior at the halfway. I did discuss the patient with a language interpreter. The patient has no medical complaints at this time. Patient is able to ambulate in a straight line without any issues. Patient appears to be clinically sober on my exam. Patient may no mentioned of suicide ideation. He is requesting for discharge at this time back to the halfway. Patient appears to be stable he received his medical screening exam patient will be discharged. Differential Diagnosis Differential Diagnoses: The differential diagnosis associated with the presentation includes Alcohol use, fall, psychosis Social Determinants Patient?s care significantly limited by Social Determinants of Health including: Inadequate housing Discharge Plan Discharge Clinical Impression: Alcohol use Patient Disposition: Home, Self-Care Instructions: Alcohol Intoxication (ED) Prescriptions: No Action (DME) blood-glucose meter [FreeStyle Lite Meter] Kit See Rx Instructions .Route Qty: 1 0RF Rx Instructions: As directed (DME) Embrace TALK test strips Strip See Rx Instructions .ROUTE .COMPLEX Qty: 100 4RF Dose Instruction: USE TO TEST FINGER STICK BLOOD SUGAR ONCE DAILY Rx Instructions: USE TO TEST FINGER STICK BLOOD SUGAR ONCE DAILY escitalopram oxalate 20 mg tablet 20 mg PO DAILY Qty: 90 1RF Rx Instructions: Schedule next PCP appt for more refills (DME) lancets [Easy Comfort Lancets] 30 gauge misc See Rx Instructions .ROUTE .COMPLEX Qty: 100 1RF Dose Instruction: USE TO TEST FINGER STICK BLOOD SUGAR ONCE DAILY Rx Instructions: USE TO TEST FINGER STICK BLOOD SUGAR ONCE DAILY multivitamin Tablet 1 tab PO DAILY Qty: 90 1RF (DME) blood-glucose meter [Embrace TALK Glucose Monitor] Misc See Rx Instructions .Route Qty: 1 0RF Rx Instructions: As directed folic acid 1 mg tablet 1 mg PO DAILY Qty: 90 1RF thiamine HCl (vitamin B1) 100 mg tablet 100 mg PO DAILY Qty: 30 2RF pioglitazone 45 mg tablet 45 mg PO DAILY Qty: 90 1RF glipizide 10 mg tablet 10 mg PO DAILY Qty: 90 1RF simvastatin 10 mg tablet 10 mg PO BEDTIME Qty: 90 1RF lisinopril 5 mg tablet 5 mg PO DAILY Qty: 90 1RF metformin 500 mg tablet 1,000 mg PO BID Qty: 360 1RF clonidine HCl 0.1 mg Tablet 0.1 mg PO TID PRN (Reason: Alcohol Withdrawal) Rx Instructions: HOLD FOR BP < 110/60 loperamide 2 mg Capsule 2 mg PO Q4H PRN (Reason: Loose Stool) Rx Instructions: MAX 16 MG/24 HRS hydroxyzine pamoate 50 mg Capsule 50 mg PO Q4H PRN (Reason: Anxiety) melatonin 3 mg Tablet 3 mg PO BEDTIME PRN (Reason: Insomnia) calcium carbonate [Tums] 200 mg calcium (500 mg) Tablet,Chewable 200 mg PO Q4H PRN (Reason: Heartburn) ibuprofen 400 mg Tablet 400 mg PO Q8H PRN (Reason: TOOTHACHE/HEADACHE) docusate sodium [Colace] 100 mg Capsule 100 mg PO BID PRN (Reason: Constipation) aspirin 81 mg Tablet,Chewable 81 mg PO DAILY lorazepam 1 mg Tablet 2 mg PO Q1H PRN (Reason: CIWA 15 OR GREATER) lorazepam 1 mg Tablet 1 mg PO Q2H PRN (Reason: CIWA SCORE 10-14) ondansetron 4 mg Tablet,Disintegrating 4 mg PO Q6H PRN (Reason: Nausea And Vomiting) guaifenesin 600 mg Tablet Extended Release 12hr 1,200 mg PO Q12H PRN (Reason: Cough) quetiapine 100 mg Tablet 100 mg PO BEDTIME (DME) Knee Brace Large-XLarge Misc See Rx Instructions .Route Qty: 1 0RF Rx Instructions: use daily in left knee as directed acamprosate 333 mg tablet,delayed release (DR/EC) 666 mg PO TID 30 Days Qty: 180 0RF Rx Instructions: Take 2 tablets by mouth three times per day. Print Language: Luxembourgish
[2025-01-13 17:26] VITALS: BP 110/70; PULSE 70; RESP 15; TEMP 36.8; O2SAT 100
[2025-01-13 17:28] VITALS: BP 110/70; PULSE 70; RESP 15; TEMP 36.8; O2SAT 100
--- OUTSIDE RECORDS SUMMARY | 2025-01-27 20:00 | XMS_ITS | Clinical Summary ---
Author Organization Unknown Care Team Providers Care Charge Loader Name Role Phone MIKAYLA AG, MIRYAM JENNINGS Unavailable Unavailceferino HEARN RN, HAILEY Epps Unavailable TALHA METZ, STEFAN Unavailable Unavailable Payers Payer Name Policy Type Policy Number Effective Date Expira tion Date ON DEMAND MEDIC[place] - [place] [id number] [place] [id number] Problems Condition Name Condition Details Condition Category [...] tablet,coty yed release 2023-05 00:00: 00 Yes [id number] 1 tablet 2 TIMES DAILY 1 tablet 2 TIMES DAILY (route: oral) Med Classific ation: Chemical Dependenc y, Agents to Treat acetaminoph en 325 mg capsule 2023-05 00:00: 00 Yes [id number] 2 capsule 3 TIMES DAILY 2 capsule 3 TIMES DAILY (route: oral) Med Classific ation: Analgesic , Anti-infl ammatory or Antipyret ic escitalopra m 20 mg tablet 2023-05 00:00: 00 Yes [id number] 1 tablet EVERY AM 1 tablet EVERY AM (route: oral) Med Classific ation: Central Nervous System Agents folic acid 1 mg tablet 2023-05 00:00: 00 Yes [id number] 1 tablet EVERY AM 1 tablet EVERY AM (route: oral) Med Classific ation: Electroly te Balance-N utritiona l Products glipizide 10 mg tablet 2023-05 00:00: 00 Yes [id number] 1 tablet EVERY AM 1 tablet EVERY AM (route: oral) Med Classific ation: Endocrine lisinopril 5 mg tablet 2023-05 00:00: 00 Yes [id number] 1 tablet EVERY AM 1 tablet EVERY AM (route: oral) Med Classific ation: Cardiovas cular Therapy Agents metformin 500 mg tablet 2023-05 00:00: 00 Yes [id number] 2 tablet EVERY AM 2 tablet EVERY AM (route: oral) Med Classific ation: Endocrine Multivitami n 50 Plus tablet 2023-05 00:00: 00 Yes [id number] 1 tablet EVERY AM 1 tablet EVERY AM (route: oral) Med Classific ation: Electroly te Balance-N utritiona l Products pioglitazon e 45 mg tablet 2023-05 00:00: 00 Yes [id number] 1 tablet EVERY AM 1 tablet EVERY AM (route: oral) Med Classific ation: Endocrine quetiapine 25 mg tablet 2023-05 00:00: 00 Yes [id number] 1 tablet BEDTIME 1 tablet BEDTIME (route: oral) Med Classific ation: Central Nervous System Agents simvastatin 10 mg tablet 2023-05 00:00: 00 Yes [id number] 1 tablet EVERY PM 1 tablet EVERY PM (route: oral) Med Classific ation: Cardiovas cular Therapy Agents thiamine HCl (vitamin B1) 50 mg tablet 2023-05 00:00: 00 Yes [id number] 1 tablet EVERY AM 1 tablet EVERY AM (route: oral) Med Classific ation: Electroly te Balance-N utritiona l Products Vital Signs Vital Name Observation Time Observation Value Commen ts Temperature 2025-01-08 14:27:00.000 97.7 [degF] Temperature 2025-01-06 12:01:00.000 97.5 [degF] Temperature 2025-01-03 14:40:00.000 97.3 [degF] Temperature 2025 11:25:00.000 96.7 [degF] Temperature 2024-12-26 10:31:00.000 96.8 [degF] Temperature 2024-12-23 11:48:00.000 97.3 [degF] Temperature 2024-12-19 12:47:00.000 97.3 [degF] Temperature 2024-12-16 13:27:00.000 97.6 [degF] Temperature 2024-12-12 12:30:00.000 97.1 [degF] Temperature 2024-12-09 12:02:00.000 97.2 [degF] Temperature 2024-12-05 14:05:00.000 98.1 [degF] Temperature 2024-12-02 11:12:00.000 97.3 [degF] Pulse 2025-01-08 14:27:00.000 96 /min Pulse 2025-01-06 12:01:00.000 84 /min Pulse 2025-01-03 14:40:00.000 76 /min Pulse 2025 11:25:00.000 76 /min Pulse 2024-12-26 10:31:00.000 88 /min Pulse 2024-12-23 11:48:00.000 92 /min Pulse 2024-12-19 12:47:00.000 76 /min Pulse 2024-12-16 13:27:00.000 84 /min Pulse 2024-12-12 12:30:00.000 80 /min Pulse 2024-12-09 12:02:00.000 76 /min Pulse 2024-12-05 14:05:00.000 88 /min Pulse 2024-12-02 11:12:00.000 100 /min Respirations 2025-01-08 14:27:00.000 16 /min Respirations 2025-01-06 12:01:00.000 16 /min Respirations 2025-01-03 14:40:00.000 16 /min Respirations 2025 11:25:00.000 16 /min Respirations 2024-12-26 10:31:00.000 16 /min Respirations 2024-12-23 11:48:00.000 16 /min Respirations 2024-12-19 12:47:00.000 16 /min Respirations 2024-12-16 13:27:00.000 16 /min Respirations 2024-12-12 12:30:00.000 16 /min Respirations 2024-12-09 12:02:00.000 16 /min Respirations 2024-12-05 14:05:00.000 16 /min Respirations 2024-12-02 11:12:00.000 16 /min Systolic Blood Pressure 2025-01-08 14:27:00.000 146 mm [Hg] Systolic Blood Pressure 2025-01-06 12:01:00.000 136 mm [...] 11:12:00.000 134 mm [Hg] Diastolic Blood Pressure 2025-01-08 14:27:00.000 88 mm [Hg] Diastolic Blood Pressure 2025-01-06 12:01:00.000 [...] AWARENESS FOR SAFETY AND WILL NOTIFY CLINICAL APIARIST AND PHYSICIAN/PROVIDER WITH ANY CHANGE IN CONDITION. [code = SKILLED NURSE WILL MAINTAIN SITUATIONAL AWARENESS FOR SAFETY AND WILL NOTIFY CLINICAL APIARIST AND PHYSICIAN/PROVIDER WITH ANY CHANGE IN CONDITION.] [...] APARTMENT Goal 2024-11-25 Patient Goal - P ATIENT SAYS WANTS TO FEELING GOOD AND HAVE HIS OWN APARTMENT Goal 2024-09-27 Patient Goal - P ATIENT SAYS WANTS TO FEELING GOOD AND HAVE HIS OWN APARTMENT Goal 2024-07-29 Patient Goal - P ATIENT [...] End Date/Time Encounter Type Admission Type Attending [facility] [place] Facility Care Department Encounter ID Discharge Date Discharge Status Discharge Condition Discharge Reason Percent Goals Met 2024-11-30 00:00:00 2025-01-28 00:00:00 Outpatient RECERTIFIC ATSTEFAN EATON [facility] [id number] 0.00
== END 2025-01-13 17:31 | disposition home or self-care (01) ==
PROVIDERS: Emergency Provider Student in an Organized Health Care Education/Training Program; PCP Internal Medicine
DX: F10.10 Alcohol abuse, uncomplicated (principal); Y90.8 Blood alcohol level of 240 mg/100 ml or more; Y90.9 Presence of alcohol in blood, level not specified; E11.9 Type 2 diabetes mellitus without complications; Z79.899 Other long term (current) drug therapy; Z79.84 Long term (current) use of oral hypoglycemic drugs; F17.210 Nicotine dependence, cigarettes, uncomplicated
CPT/HCPCS: 99284

== ENCOUNTER → 2025-01-30 23:59 | Outpatient (BNV) | payer MEDICARE, MEDICAID, SELFPAY | PROVIDERS: PCP Internal Medicine; Visit Provider Internal Medicine | DX: E11.65 Type 2 diabetes mellitus with hyperglycemia (principal); F31.9 Bipolar disorder, unspecified | CPT/HCPCS: G0179 ==

== ENCOUNTER 2025-02-06 12:49 | Emergency (ER) | payer MEDICARE, MEDICAID, SELFPAY ==
[2025-02-06 13:16] VITALS: BP 132/78; BP 138/99; PULSE 104; PULSE 115; RESP 17; TEMP 36.5; O2SAT 99; BMI 28.3
--- NOTE | 2025-02-06 13:51 | PC.NURSE ---
Pt sent from [facility] for ETOH intoxication and vague SI statements. On arrival pt agitated, stating he is not SI/HI/AVH. Does not want to be here. Pt was changed over and given food.
[2025-02-06 14:00] VITALS: BP 130/90; PULSE 70; RESP 18; O2SAT 96
--- NOTE | 2025-02-06 14:05 | ED.ALCOHOL ---
HPI - Alcohol General Chief Complaint: ETOH/Substance Use Stated Complaint: ETOH, ?SI Time Seen by Provider: 02/06/25 14:04 Source: patient and RN notes reviewed Mode of arrival: ambulatory Limitations: no limitations History of Present Illness ED Provider: Chelly Patricia PA-C HPI narrative: This is a 60-year-old Iraqi-speaking male, with a past medical history of alcohol use disorder, diabetes mellitus, alcohol use disorder, hypertension, bipolar 1 disorder, who presents emergency department with concerns of suicidal ideation. Patient reported to the emergency room via EMS from sober living due to alcohol intoxication in vague suicidal ideation. Patient reporting that he has thoughts of harming himself every day. He states that he does not have a specific plan. He admits that he has had 7 suicidal attempts however does not discussed the details of these. He denies any homicidal ideation. Patient does report auditory hallucinations, states that the voices tell him to harm himself. He also states that he sees shadows and people. He states that these hallucinations are something that he has had in the past, denies any changes to this. Denies history of alcohol withdrawal seizures. Denies any drug use. He does smoke tobacco, states that he has a 44 pack year history. He denies any headaches, dizziness, blurred vision, chest pain, shortness of breath, abdominal pain, nausea, vomiting or diarrhea. No other complaints or concerns at this time. MD complaint: alcohol intoxication Last drink: Hours (ago) Amount of alcohol consumed: One beer Chronic alcohol use: Yes Previous visits for alcohol intoxication: Yes Recent trauma: No Associated symptoms: denies other symptoms Treatments prior to arrival: none Related Data Home Medications ?Medication ?Instructions ?Recorded ?Confirmed aspirin 81 mg chewable tablet 81 mg PO DAILY 07/02/24 02/06/25 calcium carbonate (Tums) 200 mg PO Q4H PRN Heartburn 07/02/24 02/06/25 clonidine HCl 0.1 mg tablet 0.1 mg PO TID PRN Alcohol 07/02/24 02/06/25 Withdrawal docusate sodium 100 mg capsule 100 mg PO BID PRN Constipation 07/02/24 02/06/25 (Colace) guaifenesin 600 mg tablet, 1,200 mg PO Q12H PRN Cough 07/02/24 02/06/25 extended release 12 hr hydroxyzine pamoate 50 mg capsule 50 mg PO Q4H PRN Anxiety 07/02/24 02/06/25 ibuprofen 400 mg tablet 400 mg PO Q8H PRN 07/02/24 02/06/25 TOOTHACHE/HEADACHE loperamide 2 mg capsule 2 mg PO Q4H PRN Loose Stool 07/02/24 02/06/25 lorazepam 1 mg tablet 1 mg PO Q2H PRN CIWA SCORE 10-14 07/02/24 02/06/25 lorazepam 1 mg tablet 2 mg PO Q1H PRN CIWA 15 OR GREATER 07/02/24 02/06/25 melatonin 3 mg tablet 3 mg PO BEDTIME PRN Insomnia 07/02/24 02/06/25 ondansetron 4 mg disintegrating 4 mg PO Q6H PRN Nausea And Vomiting 07/02/24 02/06/25 tablet quetiapine 100 mg tablet 100 mg PO BEDTIME 07/02/24 02/06/25 Previous Rx's ?Medication ?Instructions ?Recorded escitalopram oxalate 20 mg tablet 20 mg PO DAILY #90 tabs 02/13/24 multivitamin 1 tab PO DAILY #90 tabs 02/13/24 folic acid 1 mg tablet 1 mg PO DAILY #90 tabs 11/04/24 thiamine HCl (vitamin B1) 100 mg 100 mg PO DAILY #30 tabs 11/08/24 tablet glipizide 10 mg tablet 10 mg PO DAILY #90 tabs 11/10/24 lisinopril 5 mg tablet 5 mg PO DAILY #90 tabs 11/10/24 pioglitazone 45 mg tablet 45 mg PO DAILY #90 tabs 11/10/24 simvastatin 10 mg tablet 10 mg PO BEDTIME #90 tabs 11/10/24 metformin 500 mg tablet 1,000 mg (2 x 500 mg) PO BID #360 11/11/24 tabs acamprosate 333 mg tablet,delayed 666 mg (2 x 333 mg) PO TID 30 days 01/09/25 release #180 tabs Allergies Allergy/AdvReac Type Severity Reaction Status Date / Time shellfish derived (shellfish) Allergy Unknown Verified 02/06/25 13:21 Review of Systems Review of Systems: Constitutional : No Fever, No Chills ENT/Mouth : No sore throat, No Rhinorrhea Eyes: No Eye Pain, No Swelling, No Redness Cardiovascular : No Chest Pain, No SOB Respiratory : No Cough, No Sputum Gastrointestinal : No Nausea, No Vomiting, No Diarrhea, No abdominal Pain Genitourinary : No Dysuria, No Hematuria Musculoskeletal : No joint pain, No Myalgias, No Joint Swelling Skin : No Skin Lesions Neuro : No Weakness, No Numbness, No Headache All other systems reviewed and are negative Yes all other systems are reviewed and are negative Constitutional: Constitutional: Reports as per [facility] Past Medical History Attestation statement: The following information was validated with the patient. Medical History Alcohol abuse with alcohol-induced anxiety disorder Homeless single person Dizziness Anemia Diabetes mellitus, without long-term current use of insulin History of alcoholism Polyarthralgia Vitamin D deficiency Colonoscopy refused Knee pain, bilateral COVID-19 vaccination declined Smokes 1.5-2 packs of cigarettes per day Cigarette smoker motivated to quit Knee pain, chronic Essential hypertension Alcohol use disorder Bipolar 1 disorder Diabetes mellitus with hyperglycemia, without long-term current use of insulin Family History Family History Brother Mental health disorder Substance abuse Father Mental health disorder Mother Mental health disorder Social History Social History Household Members: Other Housing: Homeless Housing Other:: Lives in a homeless alf Are you a primary landcare facilitator to a significant other at home: No Do you presently have visiting nurse or other home services: Yes Alcohol intake: former Patient Tobacco Use Status: Current everyday Tobacco user Tobacco use type: Cigarette Cigarette Packs Per Day: 1 Cigarettes Per Day: 15 Years Smoked: 35 e-Cigarette/Vaping Use: Never Used Second Hand Smoke Exposure: Yes Advance Directives: Yes Advance Directives on File: Yes Advance Directives Date on File: 07/04/24 Do you have a plan to hurt others: No Plan Current occupational status: disabled Cognitive needs: No Hearing needs: No Vision needs: Yes Physical Exam ED Vital Signs: Vital Signs - 24 hr 02/06/25 13:16 02/06/25 14:00 02/07/25 01:23 Temperature 97.7 F 98.0 F Pulse Rate 104 H 70 119 H Respiratory Rate 17 18 19 Blood Pressure 138/99 H 130/90 H 158/84 H Pulse Oximetry 99 96 97 Oxygen Delivery Method Room Air Room Air Room Air BMI result Body Mass Index 28.3 Const General: cooperative, comfortable and no acute distress Orientation/consciousness: patient oriented x3 Limitations: no limitations HENMT Head: Yes normal to inspection, Yes normocephalic and Yes atraumatic Ears: hearing grossly normal bilaterally General nose exam: Normal external nose present Face and sinus: Yes normal facial exam Mouth: Normal oral and palatal mucosa present, oropharynx normal and moist mucous membranes Throat: Yes posterior oropharynx normal Eyes General: appearance normal, both eyes and all related structures Eyelids: Yes eyelids normal Conjunctivae: conjunctivae normal Sclerae: sclerae normal Pupils: Equal, round and reactive pupils present EOM: EOMs intact bilaterally Neck Neck: Yes normal visual inspection, Yes full ROM and Yes no lymphadenopathy Lymphatic: no lymphadenopathy noted Chest Chest palpation & inspection: normal inspection of the chest Resp Effort & Inspection: normal respiratory effort and able to speak in complete sentences Auscultation: clear to auscultation bilaterally, no crackles, no rales, no rhonchi and no wheezes Cardio Rate: regular rate Rhythm: regular rhythm Heart sounds: S1 normal heart sound present and S2 normal heart sound present GI Inspection: Yes normal to inspection Skin General skin exam: no rashes or lesions noted Trauma: no lacerations or abrasions Wounds: no wounds Neuro General: patient oriented x3 and moves all extremities Cranial nerves: Yes Equal, round and reactive pupils present Extrem General: Yes normal to inspection Right upper extremity: normal to inspection Left upper extremity: normal to inspection Right lower extremity: normal to inspection Left lower extremity: normal to inspection Course Reevaluation(s) Reevaluation #1: Time: 05:26 Date: 02/07/25 Provider: Efrain Tadeo MD Patient in physician observation for psychiatric evaluation.? No acute events reported overnight. No current complaints. VS stable except for elevated BP 150/80 for an elevated heart rate 119..? The patient was evaluated by CARE team evaluation, ETOH elevated 333. CARE team will re-evaluate in the morning.Will continue to monitor. Time: 12:06 Date: 02/07/25 Provider: Efrain Tadeo MD Physician observation ended at 12:06 hours. Patient was evaluated by the care team. The patient is now sober and has no memory of making suicidal statements. Patient has been cleared for discharge by the CARE team and was discharged. Medical Decision Making Medical Decision Making [facility] Narrative: This is a 60-year-old male with a past medical history of diabetes, hypertension, alcohol use disorder who presents emergency department with concerns of suicidal ideation. Patient reporting vague suicidal ideation, without a plan. History of suicidal attempts in the past. Also reporting auditory or visual hallucinations which is chronic for him. He states that he would like a counselor and possibly starting on psychiatric medications. Will obtain labs to rule out any electrolyte derangement. 5:43 PM 02/06/2025 (Chelly Patricia PA-C): Labs returned, he has no leukocytosis, stable H&H, chemistry revealing no significant electrolyte derangement. He does have hyperglycemia at 252, he does have a history of diabetes. AST slightly elevated at 53, not diagnostic. Ethyl alcohol 333. Awaiting care team eval. Differential Diagnosis Differential Diagnoses: The differential diagnosis associated with the presentation includes suicidal ideation, homicidal ideation, depression, anxiety Lab Data [facility] Lab Attestation statement: I reviewed the patient's lab results. See MDM 02/06/25 15:22 02/06/25 15:22 Labs: Lab Results 02/06/25 02/06/25 02/07/25 Range/Units 15:22 22:01 02:43 WBC 6.1 (4.8-10.8) X10*3/uL RBC 4.81 D (4.60-5.80) X10*6/uL Hgb 16.8 D (14.0-18.0) g/dl Hct 47.8 D (42.0-52.0) % MCV 99.4 H (80.0-98.0) fL MCH 34.9 H (27.0-33.0) pg MCHC 35.1 (31.0-36.0) g/dl RDW 12.0 (11.0-16.0) % Plt Count 134 L (160-400) X10*3/uL MPV 9.6 (9.4-12.4) fL Immature Gran % (Auto) 0.5 H (0.0-0.4) % Neut % (Auto) 50.8 (45-73) % Lymph % (Auto) 41.8 H (20-40) % [place] % (Auto) 5.7 (2-11) % Eos % (Auto) 0.7 (0-4) % Baso % (Auto) 0.5 (0-2) % Lymph # (Auto) 2.6 (1.2-4.9) X10*3/uL [place] # (Auto) 0.4 (0.1-1.2) X10*3/uL Eos # (Auto) 0.0 (0.0-0.4) X10*3/uL Baso # (Auto) 0.0 (0.0-0.2) X10*3/uL Abs Immat Gran (auto) 0.03 (0.00-0.03) X10*3/uL Absolute Neuts (auto) 3.1 (2.0-8.3) x10*3/uL Absolute Nucleated RBC 0.000 (0.0-0.012) X10*3/uL Nucleated RBC % (auto) 0.0 (0.0-0.2) /100WBC Sodium 144 (135-145) mmol/L Potassium 4.0 (3.3-5.1) mmol/L Chloride 107 (96-108) mmol/L Carbon Dioxide 25 (22-29) mmol/L Anion Gap 16 (12-20) BUN 4 L (9-16) mg/dL Creatinine 0.77 (0.5-1.4) mg/dL Estim Creat Clear Calc 100.1 Estimated GFR > 60 Random Glucose 252 H (60-115) mg/dL Calcium 9.0 (8.4-10.2) mg/dL Total Bilirubin 0.7 (0.0-1.0) mg/dL AST 53 H (5-37) U/L ALT 31 (0-40) U/L Alkaline Phosphatase 103 (39-117) U/L Total Protein 7.9 (6.5-8.0) g/dL Albumin 4.5 (3.5-5.0) g/dL Urine Color Dark Yellow Urine Appearance Clear Urine pH 5.0 (5.0-9.0) Ur Specific [place] 1.025 (1.005-1.025) Urine Protein 30 (1+) H (Neg-Trace) mg/dL Urine Glucose (UA) >=1000 H (Negative) mg/dL Urine Ketones Trace (Negative) mg/dL Urine Blood Negative (Negative) Urine Nitrite Negative (Negative) Ur Leukocyte Esterase Negative (Negative) Urine RBC 0-2 (0-2) /HPF Urine WBC 0-5 (0-5) /HPF Ur Squamous Epith Cells 0-2 (0-2) /HPF Urine Bacteria None Seen (None Seen) Hyaline Casts 0-2 (0-2) /LPF Salicylates < 5.0 L (15-30) mg/dL Urine Opiates Screen Not Detected (Not Detect) Ur Buprenorphine Scrn Not Detected (Not Detect) ng/mL Ur Oxycodone Screen Not Detected (Not Detect) ng/mL Urine Methadone Screen Not Detected (Not Detect) ng/mL Urine Fentanyl Screen Not Detected (Not Detect) Acetaminophen < 3 (<30) mcg/mL Ur Barbiturates Screen Not Detected (Not Detect) Ur Phencyclidine Scrn Not Detected (Not Detect) Ur Amphetamines Screen Not Detected (Not Detect) U Benzodiazepines Scrn Not Detected (Not Detect) Urine Cocaine Screen Not Detected (Not Detect) U Marijuana (THC) Screen Not Detected (Not Detect) Ethyl Alcohol 333 H* mg/dL COVID-19 (REYES) Negative (Negative) COVID-19 Clin Com See Note Medications Administered Generic Name Dose Route Start Last Admin Trade Name Freq PRN Reason Stop Dose Admin Acamprosate 666 mg 02/07/25 09:00 02/07/25 08:38 Acamprosate Calcium 333 Mg Tablet.Dr PO 666 mg TID EDMUNDO Administration Aspirin 81 mg 02/07/25 09:00 02/07/25 08:38 Aspirin 81 Mg Tab.Chew PO 81 mg DAILY EDMUNDO Administration Escitalopram Oxalate 20 mg 02/07/25 09:00 02/07/25 08:38 Escitalopram Oxalate 20 Mg Tablet PO 20 mg DAILY EDMUNDO Administration Folic Acid 1 mg 02/07/25 09:00 02/07/25 08:38 Folic Acid 1 Mg Tablet PO 1 mg DAILY EDMUNDO Administration Glipizide 10 mg 02/07/25 07:30 02/07/25 08:38 Glipizide 10 Mg Tablet PO 10 mg DAILY@0730 EDMUNDO Administration Lisinopril 5 mg 02/07/25 09:00 02/07/25 08:38 Lisinopril 5 Mg Tablet PO 5 mg DAILY EDMUNDO Administration Protocol Metformin HCl 1,000 mg 02/07/25 08:00 02/07/25 08:38 Metformin Hcl 1,000 Mg Tablet PO 1,000 mg BIDWM EDMUNDO Administration Multivitamins/Vitamin C 1 tab 02/07/25 09:00 02/07/25 08:38 Multivitamin Tablet PO 1 tab DAILY EDMUNDO Administration Pioglitazone HCl 45 mg 02/07/25 09:00 02/07/25 08:38 Pioglitazone Hcl 45 Mg Tablet PO 45 mg DAILY EDMUNDO Administration Thiamine HCl 100 mg 02/07/25 09:00 02/07/25 08:38 Thiamine Hcl 100 Mg Tablet PO 100 mg DAILY EDMUNDO Administration Discontinued Medications Generic Name Dose Route Start Last Admin Trade Name Chely PRN Reason Stop Dose Admin Lorazepam 2 mg 02/06/25 15:24 02/06/25 15:31 Lorazepam 1 Mg Tablet PO 02/06/25 15:25 2 mg ONCE ONE Administration Discharge Plan Discharge Clinical Impression: Suicidal ideation, Alcohol abuse Patient Disposition: Home, Self-Care Instructions: Alcohol Use Disorder (ED) Additional Instructions: Alcohol use disorder You were seen in the Emergency Department today for treatment of alcohol use disorder.? You may have been given medications to help with your withdrawal symptoms.? Please do not drink alcohol with them. This is very dangerous and can cause respiratory depression or other adverse reactions depending on the medication. If you would like to cut down or stop your alcohol use please consider calling our outpatient Addiction Treatment office:? [facility] (-[id number]) [address] [place] [address] You have also been given a list of treatment providers in the area that can assist as well.? If you experience seizures, vomiting blood, black stools, falls, severe headache, chest pain, fevers, trouble breathing, hallucinations or any other concerns you need to call 911 or seek immediate care. Please stay hydrated. You were seen in our Emergency Department today for treatment of a behavioral health issue. It is important after your visit that you follow up with either your behavioral health provider or a primary care doctor within 7 days.? If you have trouble finding a therapist you can reach out to [address] [phone] The National Suicide and Crisis Lifeline can be reached 7 days a week 24 hours a day.? Call 988 to speak with someone.? Return for any worsening symptoms or concerns such as thoughts of self harm or harm to others. Please call 911 if you feel your mental health is worsening.? Prescriptions: No Action escitalopram oxalate 20 mg tablet 20 mg PO DAILY Qty: 90 1RF Rx Instructions: Schedule next PCP appt for more refills multivitamin Tablet 1 tab PO DAILY Qty: 90 1RF folic acid 1 mg tablet 1 mg PO DAILY Qty: 90 1RF thiamine HCl (vitamin B1) 100 mg tablet 100 mg PO DAILY Qty: 30 2RF pioglitazone 45 mg tablet 45 mg PO DAILY Qty: 90 1RF glipizide 10 mg tablet 10 mg PO DAILY Qty: 90 1RF simvastatin 10 mg tablet 10 mg PO BEDTIME Qty: 90 1RF lisinopril 5 mg tablet 5 mg PO DAILY Qty: 90 1RF metformin 500 mg tablet 1,000 mg PO BID Qty: 360 1RF clonidine HCl 0.1 mg Tablet 0.1 mg PO TID PRN (Reason: Alcohol Withdrawal) Rx Instructions: HOLD FOR BP < 110/60 loperamide 2 mg Capsule 2 mg PO Q4H PRN (Reason: Loose Stool) Rx Instructions: MAX 16 MG/24 HRS hydroxyzine pamoate 50 mg Capsule 50 mg PO Q4H PRN (Reason: Anxiety) melatonin 3 mg Tablet 3 mg PO BEDTIME PRN (Reason: Insomnia) calcium carbonate [Tums] 200 mg calcium (500 mg) Tablet,Chewable 200 mg PO Q4H PRN (Reason: Heartburn) ibuprofen 400 mg Tablet 400 mg PO Q8H PRN (Reason: TOOTHACHE/HEADACHE) docusate sodium [Colace] 100 mg Capsule 100 mg PO BID PRN (Reason: Constipation) aspirin 81 mg Tablet,Chewable 81 mg PO DAILY lorazepam 1 mg Tablet 2 mg PO Q1H PRN (Reason: CIWA 15 OR GREATER) lorazepam 1 mg Tablet 1 mg PO Q2H PRN (Reason: CIWA SCORE 10-14) ondansetron 4 mg Tablet,Disintegrating 4 mg PO Q6H PRN (Reason: Nausea And Vomiting) guaifenesin 600 mg Tablet Extended Release 12hr 1,200 mg PO Q12H PRN (Reason: Cough) quetiapine 100 mg Tablet 100 mg PO BEDTIME acamprosate 333 mg tablet,delayed release (DR/EC) 666 mg PO TID 30 Days Qty: 180 0RF Rx Instructions: Take 2 tablets by mouth three times per day. Print Language: Iraqi
--- NOTE | 2025-02-06 14:48 | PC.NURSE ---
Pt's belongings placed in [facility], [facility]
--- NOTE | 2025-02-06 15:25 | PC.NURSE ---
Assumed care from the main ED, pt arrives anxious but cooperative. Pt is Occitan speaking only. [employer] is called, Pt agrees to labs drawn, removing his watch, attempted to take out his earing that would not come out, it is explained to him that he will be seen by the care team once labs result. Pt has much difficulty with understanding this. Pt paces the unit and is restless, he is given a PRN and offered coping options. Via [employer] he denies SI/HI/AVH to this hand sign writer.
[2025-02-06 15:27] LABS: Hematocrit 47.8 % (42.0-52.0); Hemoglobin 16.8 g/dl (14.0-18.0); Imm Gran Abs Auto 0.03 X10*3/uL (0.00-0.03); Imm Gran Pct Auto 0.5 % (0.0-0.4); Lymphocytes Absolute Auto 2.6 X10*3/uL (1.2-4.9); MANUAL DIFF FLAG NO; Mean Corpuscular HGB Conc 35.1 g/dl (31.0-36.0); Mean Corpuscular Hemoglobin 34.9 pg (27.0-33.0); Mean Corpuscular Volume 99.4 fL (80.0-98.0); NRBC Abs Auto 0.000 X10*3/uL (0.0-0.012); NRBC Pct Auto 0.0 /100WBC (0.0-0.2); Platelet Count 134 X10*3/uL (160-400); Red Blood Count 4.81 X10*6/uL (4.60-5.80); White Blood Count 6.1 X10*3/uL (4.8-10.8)
[2025-02-06 16:33] LABS: Alanine Aminotransferase 31 U/L (0-40); Albumin Level 4.5 g/dL (3.5-5.0); Alkaline Phosphatase 103 U/L (39-117); Anion Gap 16 (12-20); Aspartate Amino Transferase 53 U/L (5-37); Blood Urea Nitrogen 4 mg/dL (9-16); Calcium 9.0 mg/dL (8.4-10.2); Carbon Dioxide 25 mmol/L (22-29); Chloride 107 mmol/L (96-108); Creatinine Clr Calc Pharmacy 100.1; Estimated Glomerular Filt Rate > 60; Potassium 4.0 mmol/L (3.3-5.1); Sodium 144 mmol/L (135-145); Total Protein 7.9 g/dL (6.5-8.0)
[2025-02-06 16:35] LABS: Acetaminophen LAB < 3 mcg/mL (<30); Salicylate < 5.0 mg/dL (15-30)
--- NOTE | 2025-02-06 18:13 | PC.NURSE ---
Pt continues to be restless and asking staff questions with a language barrier. Pt is given 2mg of Ativan with little effect. Pt has a coughing episode after eating 3 sandwiches very quickly, he then coughs and vomits up some of the food. He has wet himself and is given clean clothing. Pts stated pharmacy [facility] is called to verify medications. Only one medication is on his med list. Pt is unable to give an answer if her has been taking the meds on his list. Pt paces the unit, needs redirection to stay out of other rooms, and is exit seeking. PT is occasionally go in his room lay down for 10-15 min at a time.
--- NOTE | 2025-02-06 19:18 | PC.NURSE ---
Assumed care of patient at 1845, patient ambulating around BH pod, respriations even and unlabored, no apparent distress is noted. Pt is currently pending care team evaluation
[2025-02-06 22:26] LABS: COVID-19 Test Negative (Negative); IDNOW Serial# 6674DD1D
--- NOTE | 2025-02-07 01:09 | PC.NURSE ---
CARE team clinician spoke with patient, follow up with homeless retirement revealed patient cannot return to retirement
[2025-02-07 01:23] VITALS: BP 158/84; PULSE 119; RESP 19; TEMP 36.7; O2SAT 97
[2025-02-07 02:52] LABS: Appearance Urine Clear; Glucose Urine UA >=1000 mg/dL (Negative); PH 5.0 (5.0-9.0); Specific Gravity - Urine 1.025 (1.005-1.025); UMIC TRIGGER UA YES
[2025-02-07 03:03] LABS: Cannabinoid Screen Urine Not Detected (Not Detect)
--- NOTE | 2025-02-07 04:10 | PC.NURSE ---
Pt resting in bed, sleeping, respirations are even and non-labored
--- NOTE | 2025-02-07 08:00 | PHA.MEDREC ---
Pharmacy Consult ? Medication Reconciliation Pharmacy has completed the medication reconciliation.Med rec checked with claim history
[2025-02-07 13:03] VITALS: BP 158/84; PULSE 119; RESP 19; TEMP 36.7; O2SAT 97
== END 2025-02-07 13:04 | disposition home or self-care (01) ==
PROVIDERS: Physician Assistant Medical; Emergency Provider Emergency Medicine; PCP Internal Medicine
DX: R45.851 Suicidal ideations (principal); F10.10 Alcohol abuse, uncomplicated; Y90.8 Blood alcohol level of 240 mg/100 ml or more; R44.0 Auditory hallucinations; R44.1 Visual hallucinations; E11.65 Type 2 diabetes mellitus with hyperglycemia; I10 Essential (primary) hypertension; F17.210 Nicotine dependence, cigarettes, uncomplicated; Z91.51 Personal history of suicidal behavior; Z79.82 Long term (current) use of aspirin; Z79.899 Other long term (current) drug therapy
CPT/HCPCS: 80053; 80143; 80179; 80307; 81001; 85025; 87635; 99284; S9485